=== PATIENT | female | born 1950 | race Two or more races ===

== ENCOUNTER 2016-12-20 08:24 | Inpatient (IN) | payer BC ==
[2016-12-20] VITALS (7 sets, daily range): BP systolic 120–133; BP diastolic 60–63; PULSE 86–101; RESP 18–24; TEMP 98.3
[~2016-12-20] VITALS: Ht 152.4 cm; Wt 89.0 kg
[~2016-12-20 08:24] MED LIST: ADV50050 INHALATION; ASPI81TA3 PO; CALC-143 PO; ESOM40CA PO; IPRA4AER INHALATION; MAGN400T28 PO; METF500T4 PO; MONT10TA21 PO; NIFE30TA2 PO; PRED20TA PO; THEOPHYLLINE PO; TIOT18CA INHALATION
[2016-12-20] MEDS ORDERED: IPRATROPIUM (NEB) 0.5 MG/2.5 ML AMP NEB STA (08:33)
[2016-12-20] MEDS ORDERED: METHYLPREDNISOLONE 125 MG INJ IV STA (08:33)
[2016-12-20] MEDS ORDERED: TERBUTALINE 1 MG/ML INJ SC STA (08:33)
[2016-12-20] MEDS ORDERED: ALBUTEROL 0.5% (NEB) 2.5 MG/0.5 ML AMP NEB STA (08:33)
[2016-12-20 09:03] LABS: HEMATOCRIT 40.2 % (37.0-47.0); HEMOGLOBIN 12.9 g/dl (12.0-16.0); MEAN CORPUSCULAR HEMOGLOBIN 25.5 pg (29.0-33.0); MEAN CORPUSCULAR HGB CONC 32.1 g/dl (32.0-37.0); MEAN CORPUSCULAR VOLUME 79.4 fl (82.0-101.0); MEAN PLATELET VOLUME 12.6 fl (7.4-10.4); PLATELET COUNT 117 10^3/UL (140-440); RED BLOOD COUNT 5.07 10^6/ul (4.20-5.40); RED CELL DISTRIBUTION WIDTH 14.4 % (11.5-14.5); UNCORRECTED WBC 4.1 10^3/ul (4.8-10.8); WHITE BLOOD COUNT 4.1 10^3/ul (4.8-10.8)
[2016-12-20 09:07] LABS: CONDITION 1; LH ANALYZER COMMENTS 1; SUSPECT 1
--- NOTE | 2016-12-20 09:10 | RADRPT ---
PROCEDURE: XR Chest. CLINICAL INDICATION: Possible sepsis. TECHNIQUE: Single frontal view of the chest was obtained. COMPARISON: 08/13/2016. FINDINGS: Cardiomediastinal silhouette appears normal The cardiac silhouette appears normal. There is calcification in the thoracic aorta. Pulmonary vas culature appears normal. Extensive bilateral cystic changes in the upper lung morgan consistent wit h emphysema. There is a slight increase in bronchial thickening in the lower lung morgan without a confluent airspace process. Costophrenic angles remain well defined. IMPRESSION: 1. Extensive cystic emphysematous changes in the upper lung field with an increase in apparent perib ronchial thickening particularly in the lower lung morgan. This likely reflects nonspecific inflamm ation/bronchitis. 2. No confluent airspace process identified. 3. Aortic atherosclerosis per RPTAT: [facility] Physician Jerri Date Time Electronically viewed and signed by Physician Jerri on 12/20/2016 09:10 /
[2016-12-20 09:41] LABS: ALBUMIN 3.6 g/dl (3.3-4.9)
[2016-12-20 09:41] LABS: BASOPHIL # 0.1 10^3/ul (0.0-0.1); LYMPHOCYTES # 0.7 10^3/ul (0.8-2.9); MONOCYTE # 0.5 10^3/ul (0.3-0.9)
[2016-12-20 09:44] LABS: ALBUMIN/GLOBULIN RATIO 0.97; BILIRUBIN,INDIRECT 0.6 mg/dl (0-1.1); BILIRUBIN,TOTAL 0.6 mg/dl (0.2-1.3); CREATININE 0.42 mg/dl (0.44-1.00); TOTAL PROTEIN 7.3 g/dl (6.1-8.1)
[2016-12-20 09:45] LABS: CALCIUM 9.2 mg/dl (8.4-10.2)
[2016-12-20 10:01] LABS: INR 1.12; PROTIME 14.4 Sec (12.2-14.2); PT RATIO 1.1
[2016-12-20 10:02] LABS: PARTIAL THROMBOPLASTIN TIME 31.8 Sec (25.0-35.0)
[2016-12-20] MEDS ORDERED: ONDANSETRON 4 MG INJ IV PRN ×2 (10:30→11:00)
[2016-12-20] MEDS ORDERED: ACETAMINOPHEN 325 MG TAB PO PRN ×2 (10:30→11:00)
--- NOTE | 2016-12-20 10:40 | ERA ---
ER Documentation Chief Complaint Date/Time DATE: 12/20/16 TIME: 10:33 Chief Complaint sob with moderate wheezing and access muscle use onset 2 days. got worse HPI This is a 66-year-old female who presents to the emergency room for evaluation of shortness of breath, wheezing, and difficulty breathing for the past 2 days. This patient does have a history of COPD according to family members were at bedside. She has been using an inhaler without relief of her symptoms. ROS All systems reviewed and are negative except as per history of present illness. Medications Home Meds Active Scripts Nifedipine (Procardia Xl) 30 Mg Tab.er.24, 30 MG PO BID, #60 TAB Prov:TATI SANCHEZ MD 08/30/16 Albuterol/Ipratropium* (Combivent Respimat*) 20-100 Mcg/Inh - 4 Gm Aer.w.adap, 1 PUFF INHALATION QID, #1 INHALER Prov:TATI SANCHEZ MD 08/30/16 Prednisone* (Prednisone*) 20 Mg Tab, 20 MG PO BID, #20 TAB Prov:TATI SANCHEZ MD 08/30/16 [Theophylline (Sr)] 200 MG TABSR No Conflict Check, 200 MG PO QHS, #30 Prov:TATI SANCHEZ MD 08/30/16 Aspirin (Aspirin) 81 Mg Chew, 81 MG PO DAILY, #30 TAB Prov:TATI SANCHEZ MD 08/30/16 Magnesium Oxide* (Magnesium Oxide*) 400 Mg Tablet, 400 MG PO DAILY, #30 TAB Prov:TATI SANCHEZ MD 08/30/16 Metformin* (Glucophage*) 500 Mg Tab, 1000 MG PO WITH LUNCH DINNER, #60 TAB Prov:TATI SANCHEZ MD 08/30/16 Esomeprazole Mag Trihydrate (Nexium) 40 Mg Capsule.dr, 40 MG PO DAILY, #30 CAP Prov:TATI SANCHEZ MD 08/30/16 Tiotropium Phoenix* (Spiriva*) 18 Mcg Cap.w.dev, 1 CAP INHALATION DAILY, #30 CAP Prov:TATI SANCHEZ MD 08/30/16 Salmeterol Xinaf-Fluticasone* (Advair*) 500/50 Diskus Inhaler, 1 INH INHALATION BID, #1 INHALER Prov:TATI SANCHEZ MD 08/30/16 Calcium Citrate/Vitamin D (Citracal-Vitamin D 200 MG-250) 1 Each Tablet, 1 EACH PO BID, #60 TAB Prov:TATI SANCHEZ MD 08/30/16 Montelukast Sodium* (Singulair*) 10 Mg Tablet, 10 MG PO QHS, #30 TAB Prov:TATI SANCHEZ MD 08/30/16 Allergies Allergies: Uncoded Allergies: CONTRAST, DYE (Allergy, Severe, 08/15/16) ANAESTHESIA (Adverse Reaction, Unknown, 08/12/16) PT STATES ONLY ALLERGIC TO ANAESTHESIA PMhx/Soc History of Surgery: No Anesthesia Reaction: No Hx Neurological Disorder: No Hx Respiratory Disorders: No Hx Cardiac Disorders: No Hx Psychiatric Problems: No Hx Miscellaneous Medical Probl: No Hx Alcohol Use: No Hx Substance Use: No Hx Tobacco Use: No Smoking Status: Never smoker Physical Exam Vitals Vital Signs Date Time Temp Pulse Resp B/P Pulse Ox O2 Delivery O2 Flow Rate FiO2 12/20/16 09:07 98.3 82 20 138/66 100 BIPAP 12/20/16 08:54 Nasal Cannula 12/20/16 08:35 Nasal Cannula 12/20/16 08:29 98.9 102 30 184/79 90 Physical Exam INITIAL VITAL SIGNS: Reviewed by me GENERAL: The patient is well developed, moderate respiratory distress HEENT: Dry mucous membranes, pupils equal, round, and reactive to light. EOMI. There is no scleral icterus. NECK: C-spine is soft and supple, there is no meningismus. There is no cervical lymphadenopathy. LUNGS: Diffuse wheezing and rhonchi auscultating the bilateral upper lower lobe. HEART: Tachycardic no murmurs, clicks, rubs or gallops. ABDOMEN: Accessory muscle use, soft, non-tender, non-distended. There are bowel sounds in all four quadrants. No rebound or guarding. EXTREMITIES: There is no peripheral cyanosis or edema. No focal swelling or erythema. NEUROLOGICAL: The patient moves all four extremities with 5/5 strength. Cranial nerves II - XII are intact. Normal gait. Alert and oriented SKIN: There is no apparent rash or petechiae. HEME/LYMPHATIC: There is no evidence of excessive bruising or lymphedema. PSYCHIATRIC: The patient appears moderately anxious Result Diagram: 12/20/16 0844 12/20/16 0930 Results 24 hrs Laboratory Tests Test 12/20/16 08:44 12/20/16 09:30 Band Neutrophils % 20.0% Basophils # 0.110^3/ul Basophils % 2.0% Blood Morphology Comment Differential Comment MANUAL DIFF Eosinophils # 10^3/ul Eosinophils % % Giant Platelets 1+ Hematocrit 40.2% Hemoglobin 12.9g/dl Lymphocytes # 0.710^3/ul Lymphocytes % 16.0% Mean Corpuscular Hemoglobin 25.5pg Mean Corpuscular Hemoglobin Concent 32.1g/dl Mean Corpuscular Volume 79.4fl Mean Platelet Volume 12.6fl Monocytes # 0.510^3/ul Monocytes % 13.0% Neutrophils # 2.010^3/ul Neutrophils % 49.0% Nucleated Red Blood Cells # 10^3/ul Nucleated Red Blood Cells % /100WBC Platelet Count 46864^3/UL Red Blood Count 5.0710^6/ul Red Cell Distribution Width 14.4% White Blood Count 4.110^3/ul Activated Partial Thromboplast Time 31.8Sec Alanine Aminotransferase (ALT/SGPT) 69IU/L Albumin 3.6g/dl Albumin/Globulin Ratio 0.97 Alkaline Phosphatase 110IU/L Anion Gap 14 Aspartate Amino Transf (AST/SGOT) 71IU/L Blood Urea Nitrogen 11mg/dl Calcium Level 9.2mg/dl Carbon Dioxide Level 29mmol/L Chloride Level 95mmol/L Creatinine 0.42mg/dl Direct Bilirubin 0.00mg/dl Globulin 3.70g/dl Glucose Level 180mg/dl INR International Normalized Ratio 1.12 Indirect Bilirubin 0.6mg/dl Lactic Acid Level 2.3mmol/L Potassium Level 5.0mmol/L Prothrombin Time 14.4Sec Prothrombin Time Ratio 1.1 Sodium Level 133mmol/L Total Bilirubin 0.6mg/dl Total Protein 7.3g/dl Troponin I < 0.012ng/ml Current Medications Medications (Trade) Dose Ordered Sig/Rola Route PRN Reason Start Time Stop Time Status Last Admin Dose Admin Albuterol (Proventil 0.5% (Neb)) 10 mg ONCE STAT NEB 12/20/16 08:33 12/20/16 08:34 DC 12/20/16 08:49 Ipratropium Phoenix (Atrovent 0.02% (Neb)) 1.5 mg ONCE STAT NEB 12/20/16 08:33 12/20/16 08:34 DC Methylprednisolone Sodium Succinate (Solu-Medrol) 125 mg ONCE STAT IV 12/20/16 08:33 12/20/16 08:34 DC 12/20/16 09:03 Terbutaline Sulfate (Brethine) 0.25 mg ONCE STAT SC 12/20/16 08:33 12/20/16 08:34 DC Ondansetron HCl (Zofran Inj) 4 mg ER BRIDGE PRN IV NAUSEA AND/OR VOMITING 12/20/16 10:30 12/21/16 10:29 Acetaminophen (Tylenol Tab) 650 mg ER BRIDGE PRN PO MILD PAIN/FEVER 12/20/16 10:30 12/21/16 10:29 Procedures/MDM EKG: Rate/Rhythm: [Normal Sinus Rhythm] QRS, ST, T-waves: [No changes consistent w/ acute ischemia] Impression: [No evidence of ischemia or arrhythmia] EKG: #2 Rate/Rhythm: [Normal Sinus Rhythm] QRS, ST, T-waves: [No changes consistent w/ acute ischemia] Impression: [No evidence of ischemia or arrhythmia] Chest X-ray 1V Interpreted by me: Soft Tissue: Peribronchial thickening , cystic changes in the upper lobe Bones: No acute abnormalities Mediastinum/Cardiac Silhouette/Lungs: [No acute abnormalities] This 66-year-old female presents to the emergency room for evaluation of shortness of breath. When I evaluated this patient she was tachypnea, tachycardic, and extremely anxious. Her pulse ox was 77% on room air. The decision was made to place this patient on a BiPAP immediately. She was placed on a BiPAP, was given an in-line treatment of albuterol, Atrovent, Solu-Medrol, and subcutaneous terbutaline. This patient tolerated her treatments well and she is tolerating the BiPAP well also. Her pulse ox is now 100%. She is refusing ABG at this time. This patient will be placed in for admission for acute respiratory failure, and hypoxic respiratory distress. This patient did have emphysematous and inflammatory changes on her chest x-ray. I do not feel that she has pneumonia at this time and I feel that her symptoms are secondary to her underlying COPD. This patient will be placed in the telemetry floor under the care of Dr. aj. Critical Care: Excluding all billable procedures Time: 33 minutes Treatments/Evaluations: Emergent and rapid respiratory assessment and management with continuous monitoring. Advanced airway equipment at the ready, while the patient's respiratory symptoms were stabilized. Departure Diagnosis: Primary Impression: Acute respiratory failure Additional Impressions: Hypoxemia Hyponatremia Condition: Stable RIGOBERTO GAMA DO Dec 20, 2016 10:40
[2016-12-20] MEDS ORDERED: BISACODYL 10 MG SUPP PR PRN (11:00)
[2016-12-20] MEDS ORDERED: ACETAMINOPHEN 650 MG SUPP PR PRN (11:00)
[2016-12-20] MEDS ORDERED: NACL 0.9% 3 ML SYG IV SCH (11:00)
[2016-12-20] MEDS ORDERED: HYDROCODONE/APAP (5/325) TAB PO PRN ×2 (11:00)
[2016-12-20] MEDS ORDERED: DOCUSATE SODIUM 100 MG CAP PO PRN (11:00)
[2016-12-20] MEDS ORDERED: morphine 2 MG INJ IV PRN (11:00)
[2016-12-20] MEDS: SOD CHLORIDE 0.9% 1,000 ML IV SCH (11:30)
[2016-12-20 11:32] LABS: ADD UMIC NO; URINE BILIRUBIN (Dip) NEGATIVE (NEGATIVE); URINE BLOOD (Dip) NEGATIVE (NEGATIVE); URINE COLOR LT. YELLOW (YELLOW); URINE GLUCOSE (Dip) NEGATIVE (NEGATIVE); URINE KETONES (Dip) NEGATIVE (NEGATIVE); URINE LEUKOCYTE ESTERASE (Dip) NEGATIVE (NEGATIVE); URINE NITRITE (Dip) NEGATIVE (NEGATIVE); URINE TOTAL PROTEIN (Dip) NEGATIVE (NEGATIVE); URINE UROBILINOGEN (Dip) 2.0 E.U./dL (0.1-1.0)
[2016-12-20] MEDS ORDERED: GLUCOSE GEL 15 GRAM TUBE BUCCAL PRN (12:00)
[2016-12-20] MEDS ORDERED: GLUCAGON 1 MG INJ IM PRN (12:00)
[2016-12-20] MEDS ORDERED: DEXTROSE 50% 50 ML SYRINGE IV PRN ×2 (12:00)
[2016-12-20] MEDS ORDERED: GLUCOSE GEL 15 GRAM TUBE PO PRN ×2 (12:00)
[2016-12-20] MEDS: ALBUTEROL/IPRATROPIUM (NEB) 3 ML AMP HHN SCH ×3 (12:39→20:46)
[2016-12-20] MEDS: METHYLPREDNISOLONE 125 MG INJ IV SCH ×2 (12:57→21:35)
[2016-12-20] MEDS: metFORMIN 500 MG TAB PO SCH ×2 (13:00→18:22)
[2016-12-20] MEDS: LEVOFLOXACIN 500MG/D5W (PMX) 100 ML IVPB SCH (16:28)
--- NOTE | 2016-12-20 16:53 | HP ---
DATE OF ADMISSION: 12/20/2016 CHIEF COMPLAINT: Shortness of breath and hemoptysis. HISTORY OF PRESENT ILLNESS: This is a 66-year-old female with past medical history of COPD, GERD, иван iatyree, who came to [facility] due to reports of increased shortness of breath fo r a week duration with associated cough and hemoptysis for 3 days. Of note, patient was recently ad mitted to [facility] in August of 2016 with similar presentation. The patient did come to [facility] due to the aforementioned issues and she did have chest x-r ay done on 12/20/2016 that did show extensive cystic emphysematous changes in the upper lung field w ith increase in peribronchial thickening, particularly in the lower lung morgan reflective of inflam mation/bronchitis. There were no confluent airspace processes identified. On labs, she did have initial lactic acid of 2.3, which did downward trend to 1.1. She was slightly hyponatremic with sodium of 133. She remained afebrile. She denied any recent weight loss but she did report having some subjective night sweats. We will evaluate her for the aforementioned issues . MEDICAL AND SURGICAL HISTORY: 1. Diabetes. 2. GERD. 3. Reported history of chronic obstructive pulmonary disease. 4. History of thrombocytopenia. 5. Congestive heart failure with grade I diastolic dysfunction. 6. History of hepatitis C. SOCIAL HISTORY: Patient denies any cigarette smoking, alcohol consumption or illicit drug use. FAMILY HISTORY: Noncontributory. ALLERGIES: 1. ANESTHESIA. 2. CONTRAST DYE. HOME MEDICATIONS: 1. Combivent Respimat 1 puff q.i.d. 2. Spiriva 1 capsule inhaled every day. 3. Nifedipine 30 mg p.o. b.i.d. 4. Aspirin 81 mg p.o. daily. 5. Calcium citrate and vitamin D 1 tab p.o. b.i.d. 6. Singulair 10 mg p.o. at bedtime. 7. Advair 500/50 one puff b.i.d. 8. Nexium 40 mg p.o. daily. 9. Magnesium oxide 400 mg p.o. daily. 10. Metformin 1000 mg p.o. b.i.d. 11. Prednisone 20 mg p.o. b.i.d. 12. Theophylline 200 mg p.o. at bedtime. REVIEW OF SYSTEMS: A 12-point review of systems obtained and entirely negative except that mentione d in the history of present illness. PHYSICAL EXAMINATION: VITAL SIGNS: Temperature is 97.9, pulse is 74, respiratory rate 18, blood pressure 120/60 and pulse ox is 99% on 3 liters nasal cannula. GENERAL: This is a 66-year-old female in mild distress secondary to shortness of breath. EYES: Pupils are equal, round and reactive to light. Anicteric sclerae. NECK: Supple, nontender, no JVD. CARDIOVASCULAR: S1, S2 auscultated, regular rate. PULMONARY: Noted wheezing auscultated bilateral lung morgan. ABDOMEN: Soft, nontender, nondistended. EXTREMITIES: No pitting edema bilateral lower extremities. SKIN: Warm, dry, and intact. NEUROLOGIC: Alert, oriented x3. LABORATORY DATA: WBC 12.1, hemoglobin is 12.9, hematocrit is 40.2 and platelets are 117. Sodium is 133, potassium 5, BUN is 11, creatinine 0.42. IMAGING: Chest x-ray done on 12/20/2014 did show extensive cystic emphysematous changes in the uppe r lung field with increase in apparent peribronchial thickening, particularly in the lower lung fiel ds suspect for nonspecific inflammation/bronchitis. IMPRESSION AND PLAN 1. Chronic obstructive pulmonary disease with exacerbation. Patient noted with active bronchospasm . Continue on steroid treatment. Will provide her with bronchodilators around the clock. We will titrate down O2 as tolerated. Patient Admitting Clerk to follow. 2. Hemoptysis. Patient noted during physical examination and evaluation to be coughing up a red-ti nged sputum. We will get a apartment maintenance to follow. Will follow up on CT scan of the chest. Follow up on AFB. 3. History of chronic obstructive pulmonary disease, continued on bronchodilators. 4. History of diabetes. We will continue the patient on her metformin. We will follow up on A1c. Will start on insulin regimen pending clinical course. 5. Deep venous thrombosis prophylaxis: SCDs. 6. Gastroesophageal reflux disease prophylaxis: H2 blockers. ADMISSION PROCESS TIME: 40 minutes. Discussed plan of care with Dr. Nelson. Dictated By: JASBIR BECERRA/ANGE Conf#: [id number] [facility]#: [id number]
[2016-12-20] MEDS: NIFEdipine (XL) 30 MG TAB PO SCH ×2 (21:00→21:22)
[2016-12-20] MEDS: SALMETEROL/FLUTICASONE 500/50 INHA INH SCH (21:18)
[2016-12-20] MEDS: MONTELUKAST 10 MG TAB PO SCH (21:22)
[2016-12-21] VITALS (11 sets, daily range): BP systolic 120–142; BP diastolic 58–65; PULSE 88–105; RESP 18–21
[2016-12-21] MEDS: SOD CHLORIDE 0.9% 1,000 ML IV SCH ×3 (01:00→16:12)
[2016-12-21] MEDS: ALBUTEROL/IPRATROPIUM (NEB) 3 ML AMP HHN SCH ×6 (01:51→20:38)
[2016-12-21] MEDS: PANTOPRAZOLE (EC) 40 MG TAB PO SCH (06:14)
[2016-12-21 07:37] LABS: ALBUMIN 3.2 g/dl (3.3-4.9); POTASSIUM 5.6 mmol/L (3.5-5.1)
[2016-12-21 07:39] LABS: CREATININE 0.46 mg/dl (0.44-1.00)
[2016-12-21 07:40] LABS: ALBUMIN/GLOBULIN RATIO 0.94; BILIRUBIN,INDIRECT 0.2 mg/dl (0-1.1); BILIRUBIN,TOTAL 0.2 mg/dl (0.2-1.3); CALCIUM 9.5 mg/dl (8.4-10.2); TOTAL PROTEIN 6.6 g/dl (6.1-8.1)
[2016-12-21 07:41] LABS: CHOL/HDL RATIO 2.6 RATIO; MAGNESIUM 1.5 mg/dl (1.7-2.5)
[2016-12-21 07:44] LABS: T3 UPTAKE 24.7 % (23.5-40.5)
[2016-12-21 07:57] LABS: HEMATOCRIT 36.8 % (37.0-47.0); HEMOGLOBIN 11.9 g/dl (12.0-16.0); LYMPHOCYTES # 0.4 10^3/ul (0.8-2.9); LYMPHOCYTES % 10.5 % (15.0-51.0); MEAN CORPUSCULAR HEMOGLOBIN 25.5 pg (29.0-33.0); MEAN CORPUSCULAR HGB CONC 32.4 g/dl (32.0-37.0); MEAN CORPUSCULAR VOLUME 78.9 fl (82.0-101.0); MEAN PLATELET VOLUME 12.8 fl (7.4-10.4); MONOCYTE # 0.2 10^3/ul (0.3-0.9); MONOCYTES % 6.7 % (0.0-11.0); NEUTROPHILS % 82.8 % (39.0-77.0); PLATELET COUNT 103 10^3/UL (140-440); RED BLOOD COUNT 4.66 10^6/ul (4.20-5.40); UNCORRECTED WBC 3.6 10^3/ul (4.8-10.8); WHITE BLOOD COUNT 3.6 10^3/ul (4.8-10.8)
[2016-12-21 07:59] LABS: THYROID STIMULATING HORMONE 0.778 MIU/L (0.465-4.680)
[2016-12-21 08:02] LABS: CONDITION 1; LH ANALYZER COMMENTS 1; SUSPECT 1
[2016-12-21] MEDS: SALMETEROL/FLUTICASONE 500/50 INHA INH SCH ×2 (08:35→21:03)
[2016-12-21] MEDS: NIFEdipine (XL) 30 MG TAB PO SCH ×2 (08:35→21:08)
[2016-12-21] MEDS: METHYLPREDNISOLONE 125 MG INJ IV SCH ×3 (08:35→21:05)
[2016-12-21] MEDS: MAGNESIUM OXIDE 400 MG TAB PO SCH (08:35)
[2016-12-21] MEDS: ASPIRIN 81 MG TAB PO SCH (08:35)
[2016-12-21] MEDS ORDERED: INFLUENZA VIRUS VACCINE 0.5 ML SYG IM* ONE (09:00)
[2016-12-21] MEDS ORDERED: GLUCOSE GEL 15 GRAM TUBE BUCCAL PRN (09:30)
[2016-12-21] MEDS ORDERED: DEXTROSE 50% 50 ML SYRINGE IV PRN ×2 (09:30)
[2016-12-21] MEDS ORDERED: GLUCAGON 1 MG INJ IM PRN (09:30)
[2016-12-21] MEDS ORDERED: GLUCOSE GEL 15 GRAM TUBE PO PRN ×2 (09:30)
[2016-12-21] MEDS ORDERED: MAGNESIUM SULFATE 2 GM/50 ML 50 ML IVPB ONE (10:00)
[2016-12-21] MEDS ORDERED: NA POLYST SULFON 15 GM/60 ML BTL PR ONE (10:00)
[2016-12-21] MEDS: INSULIN GLARGINE [LANtus] 3 ML PEN SC SCH (10:00)
[2016-12-21] MEDS: metFORMIN 500 MG TAB PO SCH ×2 (11:43→17:12)
[2016-12-21] MEDS: INSULIN ASPART [NOVOLOG] 3 ML PEN SC SCH ×3 (12:28→21:34)
--- NOTE | 2016-12-21 13:30 | RADRPT ---
PROCEDURE: CT Chest without contrast. CLINICAL INDICATION: hemoptysis, sob TECHNIQUE: CT scan of the chest without contrast was performed on a multidetector high-resolution CT scanner. Coronal and sagittal reformatted images were obtained from the axial source images. The total exam CTDI equals 13 mGy and the total exam DLP equals 447 mGy-cm. COMPARISON: CT chest August 16, 2016 FINDINGS: Noted is complete replacement of both upper lobes and the right middle lobe by bronchiectasis. Ther e are fluid levels in scattered dilated bronchi. There is minimal bronchiectasis in the anterior ba yeyo segment of the left lower lobe. Noted is mild nodular infiltrate in the posterior basal segment of the right lower lobe. No alveolar infiltrate or mass is seen. There is no pleural or pericardi al effusion. No pneumothorax is present. There are sub centimeter middle mediastinal nodes. No hi lar or mediastinal adenopathy or masses present. Calcifications are present in the wall of the aort a. There is no aneurysm. No pneumothorax is present. There is a nodular contour to the liver consistent with cirrhosis. No mass or ductal dilatation is present. There is splenic enlargement. No adrenal mass is seen. The osseous structures are intact. IMPRESSION: Complete replacement right and left upper lobe and right middle lobe by bronchiectasis. No masses d etected. No change. Minimal nodular infiltrate right lower lobe. Cirrhosis. Splenomegaly. Vascular calcifications. .Giuseppe Bueno MD, MD Date Time Electronically viewed and signed by .Giuseppe Bueno MD, on 12/21/2016 13:29 .A/
--- NOTE | 2016-12-21 14:10 | PN ---
Date/Time of Note Date/Time of Note DATE: 12/21/16 TIME: 14:05 Assessment/Plan VTE Prophylaxis VTE Prophylaxis Intervention: SCD's Lines/Catheters IV [facility]from [facility] Peripheral IV Urinary Cath still in place: No Assessment/Plan Chief Complaint/Hosp Course Assessment and plan 1. Chronic obstructive pulmonary disease with exacerbation. Patient noted with active bronchospasm. Continue on steroid treatment. Will provide her with bronchodilators around the clock. We will titrate down O2 as tolerated. Of note patient did have CT scan of the chest that did show: Complete replacement right and left upper lobe and right middle lobe by bronchiectasis Await pulmonology input. 2. Hemoptysis. Patient noted during physical examination and evaluation to be coughing up a red-tinged sputum. Patient also does report subjective night sweats and fever. Inspector [place] to follow. Follow up on AFB. 3. History of chronic obstructive pulmonary disease, continued on bronchodilators. 4. History of diabetes. A1c at 6.4. Continue on insulin regimen 5. Deep venous thrombosis prophylaxis: SCDs. 6. Gastroesophageal reflux disease prophylaxis: H2 blockers. Disposition and plan: Continue breathing treatments. Await pulmonary input. Continue inpatient monitoring await clinical improvement of respiratory status Discussed plan of care with Dr. Nelson Problems: Subjective 24 Hr Interval Summary Free Text/Dictation resting at this time. does report better breathing today. Still has some reported hemoptysis Exam/Review of Systems Vital Signs Vitals Vital Signs Date Time Temp Pulse Resp B/P Pulse Ox O2 Delivery O2 Flow Rate FiO2 12/21/16 12:36 92 12/21/16 11:32 97.8 18 125/58 97 12/21/16 09:00 Venti Mask 15.0 50 Intake and Output 12/20/16 12/20/16 12/21/16 15:00 23:00 07:00 Intake Total 100 ml 1600 ml Balance 100 ml 1600 ml Exam General: No acute signs or symptoms of distress Eyes: pupils equal round, Anicteric sclera Neck: Supple nontender, no JVD Cardiac: S1, S2 auscultated, regular rhythm and rate Pulmonary: Coarse lung sounds auscultated bilaterally with also wheezing GI: Abdomen soft nontender nondistended, bowel sounds active Extremities: No edema bilateral lower extremities Skin: Clean dry and intact Neurologic: Alert to person place and time and situation Results Result Diagram: 12/21/16 0555 12/21/16 0555 Results 24 hrs Laboratory Tests Test 12/20/16 21:38 12/21/16 05:55 12/21/16 11:42 Bedside Glucose 227 H 219 Alanine Aminotransferase (ALT/SGPT) 61 Albumin 3.2 L Albumin/Globulin Ratio 0.94 Alkaline Phosphatase 90 Anion Gap 17 H Aspartate Amino Transf (AST/SGOT) 51 H Basophils # 0.0 Basophils % 0.0 Blood Morphology Comment Blood Urea Nitrogen 17 Calcium Level 9.5 Carbon Dioxide Level 26 Chloride Level 97 Cholesterol Level 115 Cholesterol/HDL Ratio 2.6 Creatinine 0.46 Direct Bilirubin 0.00 Eosinophils # 0.0 Eosinophils % 0.0 Free Thyroxine Index 3.21 Globulin 3.40 H Glucose Level 191 HDL Cholesterol 43 Hematocrit 36.8 L Hemoglobin 11.9 L Hemoglobin A1c 6.4 H Indirect Bilirubin 0.2 LDL Cholesterol, Calculated 62 Lymphocytes # 0.4 L Lymphocytes % 10.5 L Magnesium Level 1.5 L Mean Corpuscular Hemoglobin 25.5 L Mean Corpuscular Hemoglobin Concent 32.4 Mean Corpuscular Volume 78.9 L Mean Platelet Volume 12.8 H Monocytes # 0.2 L Monocytes % 6.7 Neutrophils # 3.0 Neutrophils % 82.8 H Nucleated Red Blood Cells # 0.0 Nucleated Red Blood Cells % 0.0 Platelet Count 103 L Potassium Level 5.6 H Red Blood Count 4.66 Red Cell Distribution Width 14.0 Sodium Level 134 L Thyroid Stimulating Hormone (TSH) 0.778 Thyroxine (T4) 13.0 H Total Bilirubin 0.2 Total Protein 6.6 Triglycerides Level 52 Triiodothyronine (T3) Uptake 24.7 White Blood Count 3.6 L Medications Medications Current Medications Albuterol/ Ipratropium (Duoneb) 3 ml Q4 HHN Last administered on 12/21/16 13: 51; Admin Dose 3 ML; Start 12/20/16 at 13:00 Methylprednisolone Sodium Succinate (Solu-Medrol) 60 mg TID IV Last administered on 12/21/16 08:35; Admin Dose 60 MG; Start 12/20/16 at 13:00 Aspirin (Aspirin) 81 mg DAILY PO Last administered on 12/21/16 08:35; Admin Dose 81 MG; Start 12/21/16 at 09:00 Magnesium Oxide (Mag-Ox 400) 400 mg DAILY PO Last administered on 12/21/16 08: 35; Admin Dose 400 MG; Start 12/21/16 at 09:00 Montelukast Sodium (Singulair) 10 mg QHS PO Last administered on 12/20/16 21: 22; Admin Dose 10 MG; Start 12/20/16 at 21:00 Nifedipine (Procardia Xl) 30 mg BID PO Last administered on 12/21/16 08:35; Admin Dose 30 MG; Start 12/20/16 at 21:00 Salmeterol Xinafoate/ Fluticasone (Advair 500/50 Diskus) 1 inh BID INH Last administered on 12/21/16 08:35; Admin Dose 1 INH; Start 12/20/16 at 21:00 Pantoprazole (Protonix Tab) 40 mg DAILY@06 PO Last administered on 12/21/16 06 :14; Admin Dose 40 MG; Start 12/21/16 at 06:00 Ondansetron HCl (Zofran Inj) 4 mg Q6H PRN IV NAUSEA AND/OR VOMITING; Start at 11:00 Acetaminophen (Tylenol Tab) 650 mg Q6H PRN PO PAIN LEVEL 1-3 OR FEVER; Start at 11:00 Acetaminophen (Tylenol Supp) 650 mg Q6H PRN AK PAIN LEVEL 1-3 OR FEVER; Start 12/20/16 at 11:00 Acetaminophen/ Hydrocodone Bitart (Olema (5/325)) 1 tab Q6H PRN PO MODERATE PAIN LEVEL 4-6; Start 12/20/16 at 11:00 Acetaminophen/ Hydrocodone Bitart (Olema (5/325)) 2 tab Q6H PRN PO SEVERE PAIN LEVEL 7-10; Start 12/20/16 at 11:00 Morphine Sulfate (morphine) 2 mg Q4H PRN IV SEVERE PAIN LEVEL 7-10; Start 12/20 at 11:00 Docusate Sodium (Colace) 100 mg Q12H PRN PO CONSTIPATION; Start 12/20/16 at 11: 00 Magnesium Hydroxide (Milk Of Mag) 30 ml DAILY PRN PO CONSTIPATION; Start at 11:00 Bisacodyl 10 mg 10 mg DAILY PRN [place] CONSTIPATION; Start 12/20/16 at 11:00 Sodium Chloride (NS) 1,000 ml @ 75 mls/hr [id number] IV Last administered on 12/21t 01:00; Admin Dose 75 MLS/HR; Start 12/20/16 at 11:00 Miscellaneous Information 1 ea NOTE XX ; Start 12/20/16 at 12:00 Glucose (Glutose) 15 gm Q15M PRN PO DECREASED GLUCOSE; Start 12/20/16 at 12:00 Glucose (Glutose) 22.5 gm Q15M PRN PO DECREASED GLUCOSE; Start 12/20/16 at 12: 00 Dextrose (D50w Syringe) 25 ml Q15M PRN IV DECREASED GLUCOSE; Start 12/20/16 at 12:00 Dextrose (D50w Syringe) 50 ml Q15M PRN IV DECREASED GLUCOSE; Start 12/20/16 at 12:00 Glucagon (Glucagen) 1 mg Q15M PRN IM DECREASED GLUCOSE; Start 12/20/16 at 12:00 Glucose 15 gm 15 gm Q15M PRN BUCCAL DECREASED GLUCOSE; Start 12/20/16 at 12:00 Levofloxacin/ Dextrose (Levaquin 500mg/ D5W 100 ml (Pmx)) 100 ml @ 100 mls/hr Q24H IVPB Last administered on 12/20/16t 16:28; Admin Dose 100 MLS/HR; Start at 16:30 Insulin Glargine (Lantus) 10 unit QAM SC Last administered on 12/21/16t 10:00; Admin Dose 10 UNIT; Start 12/21/16 at 10:00 Diagnostic Test (Pha) (Accucheck) 1 ea 02 XX ; Start 12/22/16 at 02:00 Miscellaneous Information 1 ea NOTE XX ; Start 12/21/16 at 09:30 Glucose (Glutose) 15 gm Q15M PRN PO DECREASED GLUCOSE; Start 12/21/16 at 09:30 Glucose (Glutose) 22.5 gm Q15M PRN PO DECREASED GLUCOSE; Start 12/21/16 at 09: 30 Dextrose (D50w Syringe) 25 ml Q15M PRN IV DECREASED GLUCOSE; Start 12/21/16 at 09:30 Dextrose (D50w Syringe) 50 ml Q15M PRN IV DECREASED GLUCOSE; Start 12/21/16 at 09:30 Glucagon (Glucagen) 1 mg Q15M PRN IM DECREASED GLUCOSE; Start 12/21/16 at 09:30 Glucose (Glutose) 15 gm Q15M PRN BUCCAL DECREASED GLUCOSE; Start 12/21/16 at 09 :30 JASBIR LOZADA Dec 21, 2016 14:10
[2016-12-21] MEDS: LEVOFLOXACIN 500MG/D5W (PMX) 100 ML IVPB SCH (16:16)
--- NOTE | 2016-12-21 16:32 | CONS ---
DATE OF ADMISSION: 12/20/2016 DATE OF CONSULTATION: 12/21/2016 TYPE OF CONSULTATION: Pulmonary. REFERRING PHYSICIAN: Simon Caraballo NP and Justin Edwards MD REASON FOR CONSULTATION: Shortness of breath. HISTORY OF PRESENT ILLNESS: This is a 66-year-old woman with a history of COPD, who presented to ER with complaints of increasing shortness of breath. It appears that patient had developed cough abo ut a week ago which was associated with some blood-tinged sputum. Then, she became more short of br eath and subsequently came to the ER. Chest x-ray showed extensive cystic emphysematous changes in the upper lung field area. Cultures were obtained. The patient was started on broad-spectrum antib iotics. She still has mild blood-tinged sputum. However, does not appear in any respiratory distre ss. REVIEW OF SYSTEMS: Due to language barrier, not much history could be obtained from the patient. PAST MEDICAL HISTORY: History of diabetes, COPD, GERD, thrombocytopenia, congestive heart failure, and hepatitis C. ALLERGIES: CONTRAST DYE AND SOME ANESTHESIA MEDICATION. SOCIAL HABITS: Denies smoking or alcohol abuse. FAMILY HISTORY: Noncontributory. PHYSICAL EXAMINATION: VITAL SIGNS: Blood pressure 125/58, pulse 63, respirations 18, temperature 97.8. HEENT: Pupils are equal and reactive to light. NECK: Supple, no JVD noted, no cervical lymphadenopathy noted, no carotid bruits heard. LUNGS: Diminished breath sounds bilaterally with few scattered rhonchi. CARDIOVASCULAR: S1, S2 normal. ABDOMEN: Soft, nontender. No organomegaly or masses noted. EXTREMITIES: No clubbing, cyanosis, or edema noted. NEUROLOGICAL: Awake, alert and no focal deficit. LABORATORY DATA: Sodium 134, potassium 5.6, chloride 97, CO2 of 26, BUN 17, creatinine 0.46, glucos e 191. WBC 3.6, hemoglobin 11.9, hematocrit 36.8, platelets 103. Urine negative. IMAGING: Chest x-ray shows emphysematous changes. IMPRESSION: A 66-year-old female with: 1. Acute respiratory failure, hypoxemic. 2. Chronic obstructive pulmonary disease exacerbation. 3. Acute bronchitis. 4. Hemoptysis, likely related to acute bronchitis. 5. History of hepatitis C. RECOMMENDATIONS: 1. Steroids. 2. Check cultures. 3. Antibiotics. 4. Follow up chest x-ray. 5. Oxygen. 6. GI and DVT prophylaxis. Dictated By: LOWELL FERNÁNDEZ MD, MA/ANGE Conf#: [id number] DID#: [id number]
[2016-12-21] MEDS: MONTELUKAST 10 MG TAB PO SCH (21:08)
[2016-12-22] VITALS (13 sets, daily range): BP systolic 114–138; BP diastolic 57–63; PULSE 93–110; RESP 17–20
[2016-12-22] MEDS: ALBUTEROL/IPRATROPIUM (NEB) 3 ML AMP HHN SCH ×6 (00:34→20:33)
[2016-12-22] MEDS: ACCUCHECK XX SCH (01:39)
[2016-12-22] MEDS: PANTOPRAZOLE (EC) 40 MG TAB PO SCH (06:51)
[2016-12-22] MEDS: SOD CHLORIDE 0.9% 1,000 ML IV SCH (07:46)
[2016-12-22] MEDS: INSULIN ASPART [NOVOLOG] 3 ML PEN SC SCH ×4 (07:53→21:00)
[2016-12-22] MEDS: MAGNESIUM OXIDE 400 MG TAB PO SCH (08:53)
[2016-12-22] MEDS: ASPIRIN 81 MG TAB PO SCH (08:53)
[2016-12-22] MEDS: SALMETEROL/FLUTICASONE 500/50 INHA INH SCH ×2 (08:53→21:43)
[2016-12-22] MEDS: METHYLPREDNISOLONE 125 MG INJ IV SCH ×3 (08:53→21:42)
[2016-12-22] MEDS: NIFEdipine (XL) 30 MG TAB PO SCH ×2 (08:54→21:43)
[2016-12-22] MEDS: INSULIN GLARGINE [LANtus] 3 ML PEN SC SCH (09:04)
[2016-12-22 09:39] LABS: HEMATOCRIT 35.6 % (37.0-47.0); HEMOGLOBIN 11.5 g/dl (12.0-16.0); LYMPHOCYTES # 0.5 10^3/ul (0.8-2.9); MEAN CORPUSCULAR HEMOGLOBIN 25.4 pg (29.0-33.0); MEAN CORPUSCULAR HGB CONC 32.4 g/dl (32.0-37.0); MEAN CORPUSCULAR VOLUME 78.4 fl (82.0-101.0); MEAN PLATELET VOLUME 11.6 fl (7.4-10.4); MONOCYTE # 0.3 10^3/ul (0.3-0.9); MONOCYTES % 4.6 % (0.0-11.0); NEUTROPHIL # 5.1 10^3/ul (1.6-7.5); NEUTROPHILS % 86.4 % (39.0-77.0); PLATELET COUNT 113 10^3/UL (140-440); RED BLOOD COUNT 4.54 10^6/ul (4.20-5.40); RED CELL DISTRIBUTION WIDTH 14.4 % (11.5-14.5)
[2016-12-22 09:42] LABS: CONDITION 1; LH ANALYZER COMMENTS 1; SUSPECT 1
[2016-12-22 09:51] LABS: POTASSIUM 4.7 mmol/L (3.5-5.1)
[2016-12-22 09:53] LABS: CREATININE 0.54 mg/dl (0.44-1.00)
[2016-12-22 09:54] LABS: CALCIUM 9.4 mg/dl (8.4-10.2)
--- NOTE | 2016-12-22 10:51 | RADRPT ---
PROCEDURE: XR Chest. CLINICAL INDICATION: Shortness of breath. TECHNIQUE: Single frontal view. COMPARISON: 12/20/2016. FINDINGS: There is extensive bronchiectasis bilaterally in the upper and midlung zones. The lungs are otherwi se clear. The heart size is normal. There is calcification in the aorta consistent with atherosclerosis. There is no pleural effusion. There is no pneumothorax. IMPRESSION: 1. No change from 12/20/2016. RPTAT: QQ .Jm Sen MD, Date Time Electronically viewed and signed by .Jm Sen MD, MD on 12/22/2016 10:51 .R/
[2016-12-22] MEDS: metFORMIN 500 MG TAB PO SCH ×2 (11:22→17:31)
--- NOTE | 2016-12-22 12:39 | PN ---
Date/Time of Note Date/Time of Note DATE: 12/22/16 TIME: 12:35 Assessment/Plan VTE Prophylaxis VTE Prophylaxis Intervention: SCD's Lines/Catheters IV [facility]from [facility] Peripheral IV Urinary Cath still in place: No Assessment/Plan Chief Complaint/Hosp Course Assessment and plan 1. Chronic obstructive pulmonary disease with exacerbation. Patient noted with active bronchospasm. Continue on steroid treatment. Will provide her with bronchodilators around the clock. We will titrate down O2 as tolerated. Of note patient did have CT scan of the chest that did show: Complete replacement right and left upper lobe and right middle lobe by bronchiectasis Photographer Scientific following. Continue with recommendations 2. Hemoptysis. Improving at present. Continue pulmonary Rcs 3. History of chronic obstructive pulmonary disease, continued on bronchodilators. 4. History of diabetes. A1c at 6.4. Continue on insulin regimen 5. Deep venous thrombosis prophylaxis: SCDs. 6. Gastroesophageal reflux disease prophylaxis: H2 blockers. Disposition and plan: Still noted with some wheezing and shortness of breath. Continue with icing machine operator recommendations. Continue with breathing treatments. Discharge when medically stable and cleared by consultants Discussed plan of care with Dr. Nelson Problems: Subjective 24 Hr Interval Summary Free Text/Dictation Resting at this time. Does report little better breathing at this time Exam/Review of Systems Vital Signs Vitals Vital Signs Date Time Temp Pulse Resp B/P Pulse Ox O2 Delivery O2 Flow Rate FiO2 12/22/16 12:10 104 12/22/16 11:05 98.5 18 132/63 98 12/22/16 08:23 4.0 12/22/16 08:23 Nasal Cannula 12/21/16 13:52 40 Intake and Output 12/21/16 12/21/16 12/22/16 15:00 23:00 07:00 Intake Total 820 ml Output Total 1600 ml Balance -780 ml Exam General: No acute signs or symptoms of distress Eyes: pupils equal round, Anicteric sclera Neck: Supple nontender, no JVD Cardiac: S1, S2 auscultated, regular rhythm and rate Pulmonary: Coarse lung sounds auscultated bilaterally with also wheezing GI: Abdomen soft nontender nondistended, bowel sounds active Extremities: No edema bilateral lower extremities Skin: Clean dry and intact Neurologic: Alert to person place and time and situation Results Result Diagram: 12/22/1655 12/22/16854 Results 24 hrs Laboratory Tests Test 12/21/16 17:11 12/21/16 21:16 12/22/16 01:33 12/22/16 07:43 Bedside Glucose 224 H 244 H 167 198 Test 12/22/16 08:55 12/22/16 11:23 Anion Gap 13 Basophils # 0.0 Basophils % 0.0 Blood Morphology Comment Blood Urea Nitrogen 23 H Calcium Level 9.4 Carbon Dioxide Level 28 Chloride Level 100 Creatinine 0.54 Eosinophils # 0.0 Eosinophils % 0.0 Glucose Level 211 Hematocrit 35.6 L Hemoglobin 11.5 L Lymphocytes # 0.5 L Lymphocytes % 9.0 L Mean Corpuscular Hemoglobin 25.4 L Mean Corpuscular Hemoglobin Concent 32.4 Mean Corpuscular Volume 78.4 L Mean Platelet Volume 11.6 H Monocytes # 0.3 Monocytes % 4.6 Neutrophils # 5.1 Neutrophils % 86.4 H Nucleated Red Blood Cells # 0.0 Nucleated Red Blood Cells % 0.0 Platelet Count 113 L Potassium Level 4.7 Red Blood Count 4.54 Red Cell Distribution Width 14.4 Sodium Level 136 White Blood Count 6.0 # Bedside Glucose 228 H Medications Medications Current Medications Albuterol/ Ipratropium (Duoneb) 3 ml Q4 HHN Last administered on 12/22/16 08: 22; Admin Dose 3 ML; Start 12/20/16 at 13:00 Methylprednisolone Sodium Succinate (Solu-Medrol) 60 mg TID IV Last administered on 12/22/16 08:53; Admin Dose 60 MG; Start 12/20/16 at 13:00 Aspirin (Aspirin) 81 mg DAILY PO Last administered on 12/22/16 08:53; Admin Dose 81 MG; Start 12/21/16 at 09:00 Magnesium Oxide (Mag-Ox 400) 400 mg DAILY PO Last administered on 12/22/16 08: 53; Admin Dose 400 MG; Start 12/21/16 at 09:00 Montelukast Sodium (Singulair) 10 mg QHS PO Last administered on 12/21/16 21: 08; Admin Dose 10 MG; Start 12/20/16 at 21:00 Nifedipine (Procardia Xl) 30 mg BID PO Last administered on 12/22/16 08:54; Admin Dose 30 MG; Start 12/20/16 at 21:00 Salmeterol Xinafoate/ Fluticasone (Advair 500/50 Diskus) 1 inh BID INH Last administered on 12/22/16 08:53; Admin Dose 1 INH; Start 12/20/16 at 21:00 Pantoprazole (Protonix Tab) 40 mg DAILY@06 PO Last administered on 12/22/16 06 :51; Admin Dose 40 MG; Start 12/21/16 at 06:00 Ondansetron HCl (Zofran Inj) 4 mg Q6H PRN IV NAUSEA AND/OR VOMITING; Start at 11:00 Acetaminophen (Tylenol Tab) 650 mg Q6H PRN PO PAIN LEVEL 1-3 OR FEVER; Start at 11:00 Acetaminophen (Tylenol Supp) 650 mg Q6H PRN [place] PAIN LEVEL 1-3 OR FEVER; Start 12/20/16 at 11:00 Acetaminophen/ Hydrocodone Bitart ([place] (5/325)) 1 tab Q6H PRN PO MODERATE PAIN LEVEL 4-6; Start 12/20/16 at 11:00 Acetaminophen/ Hydrocodone Bitart ([place] (5/325)) 2 tab Q6H PRN PO SEVERE PAIN LEVEL 7-10; Start 12/20/16 at 11:00 Morphine Sulfate (morphine) 2 mg Q4H PRN IV SEVERE PAIN LEVEL 7-10; Start 12/20 at 11:00 Docusate Sodium (Colace) 100 mg Q12H PRN PO CONSTIPATION; Start 12/20/16 at 11: 00 Magnesium Hydroxide (Milk Of Mag) 30 ml DAILY PRN PO CONSTIPATION; Start at 11:00 Bisacodyl 10 mg 10 mg DAILY PRN [place] CONSTIPATION; Start 12/20/16 at 11:00 Sodium Chloride (NS) 1,000 ml @ 75 mls/hr [id number] IV Last administered on 12/22 07:46; Admin Dose 75 MLS/HR; Start 12/20/16 at 11:00 Miscellaneous Information 1 ea NOTE XX ; Start 12/20/16 at 12:00 Glucose (Glutose) 15 gm Q15M PRN PO DECREASED GLUCOSE; Start 12/20/16 at 12:00 Glucose (Glutose) 22.5 gm Q15M PRN PO DECREASED GLUCOSE; Start 12/20/16 at 12: 00 Dextrose (D50w Syringe) 25 ml Q15M PRN IV DECREASED GLUCOSE; Start 12/20/16 at 12:00 Dextrose (D50w Syringe) 50 ml Q15M PRN IV DECREASED GLUCOSE; Start 12/20/16 at 12:00 Glucagon (Glucagen) 1 mg Q15M PRN IM DECREASED GLUCOSE; Start 12/20/16 at 12:00 Glucose 15 gm 15 gm Q15M PRN BUCCAL DECREASED GLUCOSE; Start 12/20/16 at 12:00 Levofloxacin/ Dextrose (Levaquin 500mg/ D5W 100 ml (Pmx)) 100 ml @ 100 mls/hr Q24H IVPB Last administered on 12/21/16 16:16; Admin Dose 100 MLS/HR; Start at 16:30 Insulin Glargine (Lantus) 10 unit QAM SC Last administered on 12/22/16 09:04; Admin Dose 10 UNIT; Start 12/21/16 at 10:00 Diagnostic Test (Pha) (Accucheck) 1 ea 02 XX Last administered on 12/22/16 01: 39; Admin Dose 1 EA; Start 12/22/16 at 02:00 Miscellaneous Information 1 ea NOTE XX ; Start 12/21/16 at 09:30 Glucose (Glutose) 15 gm Q15M PRN PO DECREASED GLUCOSE; Start 12/21/16 at 09:30 Glucose (Glutose) 22.5 gm Q15M PRN PO DECREASED GLUCOSE; Start 12/21/16 at 09: 30 Dextrose (D50w Syringe) 25 ml Q15M PRN IV DECREASED GLUCOSE; Start 12/21/16 at 09:30 Dextrose (D50w Syringe) 50 ml Q15M PRN IV DECREASED GLUCOSE; Start 12/21/16 at 09:30 Glucagon (Glucagen) 1 mg Q15M PRN IM DECREASED GLUCOSE; Start 12/21/16 at 09:30 Glucose (Glutose) 15 gm Q15M PRN BUCCAL DECREASED GLUCOSE; Start 12/21/16 at 09 :30 JASBIR LOZADA Dec 22, 2016 12:39
[2016-12-22] MEDS: LEVOFLOXACIN 500MG/D5W (PMX) 100 ML IVPB SCH (16:01)
--- NOTE | 2016-12-22 17:53 | PN ---
DATE: 12/22/2016 PULMONARY FOLLOWUP SUBJECTIVE: Chart reviewed. No significant events noted. The patient is breathing more comfortabl y now. PHYSICAL EXAMINATION: VITAL SIGNS: Blood pressure 132/63, pulse 94, respirations 18, temperature 98.5, currently on 4 lit ers O2 nasal cannula, saturating 95%. HEENT: Pupils are equal and reactive to light. Anicteric sclerae. NECK: Supple. No JVD noted, no cervical adenopathy, no carotid bruits heard. LUNGS: Few scattered rhonchi. CARDIOVASCULAR: S1, S2 normal. ABDOMEN: Soft, nontender. No organomegaly or masses noted. EXTREMITIES: No clubbing or cyanosis noted. NEUROLOGICAL: Awake and alert. LABORATORY DATA: WBC 6, hemoglobin 11.5, hematocrit 35.6, platelets 113. Sodium 136, potassium 4.7 , chloride 100, CO2 of 28, BUN 23, creatinine 0.54, glucose 228. Chest x-ray shows no significant changes. IMPRESSION: 1. Acute respiratory failure, hypoxemic. 2. Chronic obstructive pulmonary disease exacerbation. 3. Acute bronchitis. 4. Hemoptysis, likely related to bronchitis. 5. History of hepatitis C. 6. Thrombocytopenia. 7. Suspect underlying bronchiectasis. RECOMMENDATIONS: 1. Continue steroids. 2. Check cultures. 3. Antibiotics. 4. Oxygen. 5. Bronchodilators. 6. Gastrointestinal and deep venous thrombosis. Dictated By: LOWELL FERNÁNDEZ MD, MA/ANGE Conf#: [id number] DID#: [id number] CC: FAHEEM HERBERT MD;*EndCC*
[2016-12-22] MEDS: MONTELUKAST 10 MG TAB PO SCH (21:42)
[2016-12-23] VITALS (13 sets, daily range): BP systolic 108–154; BP diastolic 62–78; PULSE 92–100; RESP 16–20
[2016-12-23] MEDS: ALBUTEROL/IPRATROPIUM (NEB) 3 ML AMP HHN SCH ×6 (00:13→20:08)
[2016-12-23] MEDS: MAGNESIUM HYDROXIDE 30ML CUP PO PRN ×2 (01:38→23:10)
[2016-12-23] MEDS: ACCUCHECK XX SCH (01:39)
[2016-12-23] MEDS: SOD CHLORIDE 0.9% 1,000 ML IV SCH ×2 (01:39→19:48)
[2016-12-23] MEDS: PANTOPRAZOLE (EC) 40 MG TAB PO SCH (06:29)
[2016-12-23] MEDS: SALMETEROL/FLUTICASONE 500/50 INHA INH SCH ×2 (08:38→21:38)
[2016-12-23] MEDS: METHYLPREDNISOLONE 125 MG INJ IV SCH ×3 (08:38→21:39)
[2016-12-23] MEDS: MAGNESIUM OXIDE 400 MG TAB PO SCH (08:38)
[2016-12-23] MEDS: ASPIRIN 81 MG TAB PO SCH (08:38)
[2016-12-23] MEDS: NIFEdipine (XL) 30 MG TAB PO SCH ×2 (08:39→21:39)
[2016-12-23] MEDS: INSULIN ASPART [NOVOLOG] 3 ML PEN SC SCH ×4 (09:05→21:00)
[2016-12-23] MEDS: INSULIN GLARGINE [LANtus] 3 ML PEN SC SCH (10:19)
[2016-12-23] MEDS: metFORMIN 500 MG TAB PO SCH ×2 (12:23→18:00)
--- NOTE | 2016-12-23 12:44 | CONS ---
Date/Time of Note Date/Time of Note DATE: 12/23/16 TIME: 12:39 Assessment/Plan Assessment/Plan Additional Assessment/Plan Assessment/plan; 1. Patient admitted with severe COPD exacerbation acute, acute bronchitis, possibly underlying bronchiectasis. 2. Patient currently doing fairly well however has diffuse bilateral wheezing. 3. History of hepatitis C. 4. Thrombus cytopenia. Continue current treatment. Consultation Date/Type/Reason Admit Date/Time Dec 20, 2016 at 10:24 Initial Consult Date Reason for Consultation For follow-up on COPD exacerbation, acute bronchitis, possibly bronchiectasis. Exam/Review of Systems Vital Signs Vitals Vital Signs Date Time Temp Pulse Resp B/P Pulse Ox O2 Delivery O2 Flow Rate FiO2 12/23/16 12:06 94 12/23/16 11:59 97.9 20 108/78 98 12/23/16 11:36 Nasal Cannula 3.0 12/21/16 13:52 40 Intake and Output 12/22/16 12/22/16 12/23/16 15:00 23:00 07:00 Intake Total 1250 ml 1645 ml 475 ml Output Total 1400 ml Balance 1250 ml 245 ml 475 ml Exam Patient is doing fairly well she is completely awake alert complains of mild cough. Denies any nausea vomiting. Denies any fever chills. Complains of wheezing. Denies any further hemoptysis. General examination; elderly, awake and alert, currently in no distress. HEENT examination; supple neck, no JVD, no lymphadenopathy, pharynx is clear. No neck masses. Chest examination; diffuse bilateral wheezing. S1-S2 audible no murmurs. Abdomen examination; soft nontender, nondistended, no organomegaly. Bowel sounds audible. Extremity examination: No peripheral edema. Pulses 1+ bilaterally. GROUP DIRECTOR EXPERIENCE examination.: No focal deficit. Results Result Diagram: 12/22/16 0855 12/22/16 0855 Results 24 hrs Laboratory Tests Test 12/22/16 17:25 12/22/16 21:49 12/23/16 07:47 12/23/16 12:21 Bedside Glucose 222 H 143 235 H 169 Medications Medications Current Medications Albuterol/ Ipratropium (Duoneb) 3 ml Q4 HHN Last administered on 12/23/16t 09: 05; Admin Dose 3 ML; Start 12/20/16 at 13:00 Methylprednisolone Sodium Succinate (Solu-Medrol) 60 mg TID IV Last administered on 12/23/16 12:22; Admin Dose 60 MG; Start 12/20/16 at 13:00 Aspirin (Aspirin) 81 mg DAILY PO Last administered on 12/23/16 08:38; Admin Dose 81 MG; Start 12/21/16 at 09:00 Magnesium Oxide (Mag-Ox 400) 400 mg DAILY PO Last administered on 12/23/16 08: 38; Admin Dose 400 MG; Start 12/21/16 at 09:00 Montelukast Sodium (Singulair) 10 mg QHS PO Last administered on 12/22/16 21: 42; Admin Dose 10 MG; Start 12/20/16 at 21:00 Nifedipine (Procardia Xl) 30 mg BID PO Last administered on 12/23/16 08:39; Admin Dose 30 MG; Start 12/20/16 at 21:00 Salmeterol Xinafoate/ Fluticasone (Advair 500/50 Diskus) 1 inh BID INH Last administered on 12/23/16 08:38; Admin Dose 1 INH; Start 12/20/16 at 21:00 Pantoprazole (Protonix Tab) 40 mg DAILY@06 PO Last administered on 12/23/16 06 :29; Admin Dose 40 MG; Start 12/21/16 at 06:00 Ondansetron HCl (Zofran Inj) 4 mg Q6H PRN IV NAUSEA AND/OR VOMITING; Start at 11:00 Acetaminophen (Tylenol Tab) 650 mg Q6H PRN PO PAIN LEVEL 1-3 OR FEVER; Start at 11:00 Acetaminophen (Tylenol Supp) 650 mg Q6H PRN [place] PAIN LEVEL 1-3 OR FEVER; Start 12/20/16 at 11:00 Acetaminophen/ Hydrocodone Bitart ([place] (5/325)) 1 tab Q6H PRN PO MODERATE PAIN LEVEL 4-6; Start 12/20/16 at 11:00 Acetaminophen/ Hydrocodone Bitart ([place] (5/325)) 2 tab Q6H PRN PO SEVERE PAIN LEVEL 7-10; Start 12/20/16 at 11:00 Morphine Sulfate (morphine) 2 mg Q4H PRN IV SEVERE PAIN LEVEL 7-10; Start 12/20 at 11:00 Docusate Sodium (Colace) 100 mg Q12H PRN PO CONSTIPATION; Start 12/20/16 at 11: 00 Magnesium Hydroxide (Milk Of Mag) 30 ml DAILY PRN PO CONSTIPATION Last administered on 12/23/16 01:38; Admin Dose 30 ML; Start 12/20/16 at 11:00 Bisacodyl 10 mg 10 mg DAILY PRN [place] CONSTIPATION; Start 12/20/16 at 11:00 Sodium Chloride (NS) 1,000 ml @ 75 mls/hr [id number] IV Last administered on 12/23 01:39; Admin Dose 75 MLS/HR; Start 12/20/16 at 11:00 Miscellaneous Information 1 ea NOTE XX ; Start 12/20/16 at 12:00 Glucose (Glutose) 15 gm Q15M PRN PO DECREASED GLUCOSE; Start 12/20/16 at 12:00 Glucose (Glutose) 22.5 gm Q15M PRN PO DECREASED GLUCOSE; Start 12/20/16 at 12: 00 Dextrose (D50w Syringe) 25 ml Q15M PRN IV DECREASED GLUCOSE; Start 12/20/16 at 12:00 Dextrose (D50w Syringe) 50 ml Q15M PRN IV DECREASED GLUCOSE; Start 12/20/16 at 12:00 Glucagon (Glucagen) 1 mg Q15M PRN IM DECREASED GLUCOSE; Start 12/20/16 at 12:00 Glucose 15 gm 15 gm Q15M PRN BUCCAL DECREASED GLUCOSE; Start 12/20/16 at 12:00 Levofloxacin/ Dextrose (Levaquin 500mg/ D5W 100 ml (Pmx)) 100 ml @ 100 mls/hr Q24H IVPB Last administered on 12/22/16 16:01; Admin Dose 100 MLS/HR; Start at 16:30 Insulin Glargine (Lantus) 10 unit QAM SC Last administered on 12/23/16 10:19; Admin Dose 10 UNIT; Start 12/21/16 at 10:00 Diagnostic Test (Pha) (Accucheck) 1 ea 02 XX Last administered on 12/22/16 01: 39; Admin Dose 1 EA; Start 12/22/16 at 02:00 Miscellaneous Information 1 ea NOTE XX ; Start 12/21/16 at 09:30 Glucose (Glutose) 15 gm Q15M PRN PO DECREASED GLUCOSE; Start 12/21/16 at 09:30 Glucose (Glutose) 22.5 gm Q15M PRN PO DECREASED GLUCOSE; Start 12/21/16 at 09: 30 Dextrose (D50w Syringe) 25 ml Q15M PRN IV DECREASED GLUCOSE; Start 12/21/16 at 09:30 Dextrose (D50w Syringe) 50 ml Q15M PRN IV DECREASED GLUCOSE; Start 12/21/16 at 09:30 Glucagon (Glucagen) 1 mg Q15M PRN IM DECREASED GLUCOSE; Start 12/21/16 at 09:30 Glucose (Glutose) 15 gm Q15M PRN BUCCAL DECREASED GLUCOSE; Start 12/21/16 at 09 :30 CHU TINEO Dec 23, 2016 12:44
[2016-12-23 14:10] LABS: BASOPHILS % 0.1 % (0.0-2.0); HEMATOCRIT 38.1 % (37.0-47.0); HEMOGLOBIN 12.2 g/dl (12.0-16.0); LYMPHOCYTES # 0.5 10^3/ul (0.8-2.9); LYMPHOCYTES % 8.5 % (15.0-51.0); MEAN CORPUSCULAR HEMOGLOBIN 25.3 pg (29.0-33.0); MEAN CORPUSCULAR VOLUME 79.1 fl (82.0-101.0); MEAN PLATELET VOLUME 11.3 fl (7.4-10.4); MONOCYTE # 0.2 10^3/ul (0.3-0.9); MONOCYTES % 2.5 % (0.0-11.0); NEUTROPHIL # 5.3 10^3/ul (1.6-7.5); NEUTROPHILS % 88.9 % (39.0-77.0); PLATELET COUNT 121 10^3/UL (140-440); RED BLOOD COUNT 4.81 10^6/ul (4.20-5.40); RED CELL DISTRIBUTION WIDTH 14.9 % (11.5-14.5); UNCORRECTED WBC 5.9 10^3/ul (4.8-10.8); WHITE BLOOD COUNT 5.9 10^3/ul (4.8-10.8)
[2016-12-23 14:30] LABS: CONDITION 1; LH ANALYZER COMMENTS 1; SUSPECT 1
[2016-12-23 14:33] LABS: CALCIUM 9.6 mg/dl (8.4-10.2); CREATININE 0.53 mg/dl (0.44-1.00)
--- NOTE | 2016-12-23 15:24 | PN ---
Date/Time of Note Date/Time of Note DATE: 12/23/16 TIME: 15:21 Assessment/Plan VTE Prophylaxis VTE Prophylaxis Intervention: SCD's Lines/Catheters IV C[facility]ter Type (from [facility]): Peripheral IV Urinary Cath still in place: No Assessment/Plan Chief Complaint/Hosp Course Assessment and plan 1. Chronic obstructive pulmonary disease with exacerbation. Patient noted with active bronchospasm. Continue on steroid treatment. Will provide her with bronchodilators around the clock. We will titrate down O2 as tolerated. Of note patient did have CT scan of the chest that did show: Complete replacement right and left upper lobe and right middle lobe by bronchiectasis Juice Packaging Machines Setter following. Continue with recommendations 2. Hemoptysis. Improving at present. Continue pulmonary Recs. likely 3. History of chronic obstructive pulmonary disease, continued on bronchodilators. 4. History of diabetes. A1c at 6.4. Continue on insulin regimen 5. Deep venous thrombosis prophylaxis: SCDs. 6. Gastroesophageal reflux disease prophylaxis: H2 blockers. Disposition and plan: Still noted with some wheezing and shortness of breath. Continue with chick grader recommendations. Continue with breathing treatments. Await clinical improvement of respiratory status Discussed plan of care with Dr. Edwards Problems: Subjective 24 Hr Interval Summary Free Text/Dictation Still with reported hemoptysis and shortness of breath. Still with audible wheezing Exam/Review of Systems Vital Signs Vitals Vital Signs Date Time Temp Pulse Resp B/P Pulse Ox O2 Delivery O2 Flow Rate FiO2 12/23/16 13:05 80 18 98 Nasal Cannula 4.0 12/23/16 11:59 97.9 108/78 12/21/16 13:52 40 Intake and Output 12/22/16 12/22/16 12/23/16 14:59 22:59 06:59 Intake Total 1250 ml 1645 ml 475 ml Output Total 1400 ml Balance 1250 ml 245 ml 475 ml Exam General: No acute signs or symptoms of distress Eyes: pupils equal round, Anicteric sclera Neck: Supple nontender, no JVD Cardiac: S1, S2 auscultated, regular rhythm and rate Pulmonary: Coarse lung sounds auscultated bilaterally with also wheezing GI: Abdomen soft nontender nondistended, bowel sounds active Extremities: No edema bilateral lower extremities Skin: Clean dry and intact Neurologic: Alert to person place and time and situation Results Result Diagram: 12/23/16 1400 12/23/16 1400 Results 24 hrs Laboratory Tests Test 12/22/16 17:25 12/22/16 21:49 12/23/16 07:47 12/23/16 12:21 Bedside Glucose 222 H 143 235 H 169 Test 12/23/16 14:00 Anion Gap 14 Basophils # 0.0 Basophils % 0.1 Blood Morphology Comment Blood Urea Nitrogen 24 H Calcium Level 9.6 Carbon Dioxide Level 32 H Chloride Level 97 Creatinine 0.53 Eosinophils # 0.0 Eosinophils % 0.0 Glucose Level 207 Hematocrit 38.1 Hemoglobin 12.2 Lymphocytes # 0.5 L Lymphocytes % 8.5 L Mean Corpuscular Hemoglobin 25.3 L Mean Corpuscular Hemoglobin Concent 32.0 Mean Corpuscular Volume 79.1 L Mean Platelet Volume 11.3 H Monocytes # 0.2 L Monocytes % 2.5 Neutrophils # 5.3 Neutrophils % 88.9 H Nucleated Red Blood Cells # 0.0 Nucleated Red Blood Cells % 0.0 Platelet Count 121 L Potassium Level 5.0 Red Blood Count 4.81 Red Cell Distribution Width 14.9 H Sodium Level 138 White Blood Count 5.9 Medications Medications Current Medications Albuterol/ Ipratropium (Duoneb) 3 ml Q4 HHN Last administered on 12/23/16 13: 04; Admin Dose 3 ML; Start 12/20/16 at 13:00 Methylprednisolone Sodium Succinate (Solu-Medrol) 60 mg TID IV Last administered on 12/23/16 12:22; Admin Dose 60 MG; Start 12/20/16 at 13:00 Aspirin (Aspirin) 81 mg DAILY PO Last administered on 12/23/16 08:38; Admin Dose 81 MG; Start 12/21/16 at 09:00 Magnesium Oxide (Mag-Ox 400) 400 mg DAILY PO Last administered on 12/23/16 08: 38; Admin Dose 400 MG; Start 12/21/16 at 09:00 Montelukast Sodium (Singulair) 10 mg QHS PO Last administered on 12/22/16 21: 42; Admin Dose 10 MG; Start 12/20/16 at 21:00 Nifedipine (Procardia Xl) 30 mg BID PO Last administered on 12/23/16 08:39; Admin Dose 30 MG; Start 12/20/16 at 21:00 Salmeterol Xinafoate/ Fluticasone (Advair 500/50 Diskus) 1 inh BID INH Last administered on 12/23/16 08:38; Admin Dose 1 INH; Start 12/20/16 at 21:00 Pantoprazole (Protonix Tab) 40 mg DAILY@06 PO Last administered on 12/23/16 06 :29; Admin Dose 40 MG; Start 12/21/16 at 06:00 Ondansetron HCl (Zofran Inj) 4 mg Q6H PRN IV NAUSEA AND/OR VOMITING; Start at 11:00 Acetaminophen (Tylenol Tab) 650 mg Q6H PRN PO PAIN LEVEL 1-3 OR FEVER; Start at 11:00 Acetaminophen (Tylenol Supp) 650 mg Q6H PRN [place] PAIN LEVEL 1-3 OR FEVER; Start 12/20/16 at 11:00 Acetaminophen/ Hydrocodone Bitart ([place] (5/325)) 1 tab Q6H PRN PO MODERATE PAIN LEVEL 4-6; Start 12/20/16 at 11:00 Acetaminophen/ Hydrocodone Bitart ([place] (5/325)) 2 tab Q6H PRN PO SEVERE PAIN LEVEL 7-10; Start 12/20/16 at 11:00 Morphine Sulfate (morphine) 2 mg Q4H PRN IV SEVERE PAIN LEVEL 7-10; Start 12/20 at 11:00 Docusate Sodium (Colace) 100 mg Q12H PRN PO CONSTIPATION; Start 12/20/16 at 11: 00 Magnesium Hydroxide (Milk Of Mag) 30 ml DAILY PRN PO CONSTIPATION Last administered on 12/23/16 01:38; Admin Dose 30 ML; Start 12/20/16 at 11:00 Bisacodyl 10 mg 10 mg DAILY PRN [place] CONSTIPATION; Start 12/20/16 at 11:00 Sodium Chloride (NS) 1,000 ml @ 75 mls/hr [id number] IV Last administered on 12/23 01:39; Admin Dose 75 MLS/HR; Start 12/20/16 at 11:00 Miscellaneous Information 1 ea NOTE XX ; Start 12/20/16 at 12:00 Glucose (Glutose) 15 gm Q15M PRN PO DECREASED GLUCOSE; Start 12/20/16 at 12:00 Glucose (Glutose) 22.5 gm Q15M PRN PO DECREASED GLUCOSE; Start 12/20/16 at 12: 00 Dextrose (D50w Syringe) 25 ml Q15M PRN IV DECREASED GLUCOSE; Start 12/20/16 at 12:00 Dextrose (D50w Syringe) 50 ml Q15M PRN IV DECREASED GLUCOSE; Start 12/20/16 at 12:00 Glucagon (Glucagen) 1 mg Q15M PRN IM DECREASED GLUCOSE; Start 12/20/16 at 12:00 Glucose (Glutose) 15 gm Q15M PRN BUCC[place] DECREASED GLUCOSE; Start 12/20/16 at 12 :00 Insulin Glargine (Lantus) 10 unit QAM SC Last administered on 12/23/16 10:19; Admin Dose 10 UNIT; Start 12/21/16 at 10:00 Diagnostic Test (Pha) (Accucheck) 1 ea 02 XX Last administered on 12/22/16 01: 39; Admin Dose 1 EA; Start 12/22/16 at 02:00 Miscellaneous Information 1 ea NOTE XX ; Start 12/21/16 at 09:30 Glucose (Glutose) 15 gm Q15M PRN PO DECREASED GLUCOSE; Start 12/21/16 at 09:30 Glucose (Glutose) 22.5 gm Q15M PRN PO DECREASED GLUCOSE; Start 12/21/16 at 09: 30 Dextrose (D50w Syringe) 25 ml Q15M PRN IV DECREASED GLUCOSE; Start 12/21/16 at 09:30 Dextrose (D50w Syringe) 50 ml Q15M PRN IV DECREASED GLUCOSE; Start 12/21/16 at 09:30 Glucagon (Glucagen) 1 mg Q15M PRN IM DECREASED GLUCOSE; Start 12/21/16 at 09:30 Glucose (Glutose) 15 gm Q15M PRN BUCCAL DECREASED GLUCOSE; Start 12/21/16 at 09 :30 Levofloxacin (Levaquin) 500 mg DAILY@06 PO ; Start 12/23/16 at 16:00 JASBIR LOZADA Dec 23, 2016 15:24
[2016-12-23] MEDS: LEVOFLOXACIN 500 MG TAB PO SCH (16:11)
[2016-12-23] MEDS: MONTELUKAST 10 MG TAB PO SCH (21:40)
[2016-12-24] VITALS (13 sets, daily range): BP systolic 126–156; BP diastolic 59–95; PULSE 85–98; RESP 16–20
[2016-12-24] MEDS: ALBUTEROL/IPRATROPIUM (NEB) 3 ML AMP HHN SCH ×6 (00:09→20:59)
[2016-12-24] MEDS: ACCUCHECK XX SCH (02:00)
[2016-12-24] MEDS: PANTOPRAZOLE (EC) 40 MG TAB PO SCH (06:19)
[2016-12-24] MEDS: LEVOFLOXACIN 500 MG TAB PO SCH (06:19)
[2016-12-24] MEDS: METHYLPREDNISOLONE 125 MG INJ IV SCH ×3 (09:17→21:24)
[2016-12-24] MEDS: SALMETEROL/FLUTICASONE 500/50 INHA INH SCH ×2 (09:18→21:24)
[2016-12-24] MEDS: NIFEdipine (XL) 30 MG TAB PO SCH ×2 (09:20→21:23)
[2016-12-24] MEDS: MAGNESIUM OXIDE 400 MG TAB PO SCH (09:20)
[2016-12-24] MEDS: ASPIRIN 81 MG TAB PO SCH (09:20)
[2016-12-24] MEDS: INSULIN GLARGINE [LANtus] 3 ML PEN SC SCH (09:23)
[2016-12-24] MEDS: INSULIN ASPART [NOVOLOG] 3 ML PEN SC SCH ×4 (09:24→21:00)
--- NOTE | 2016-12-24 10:16 | CONS ---
Date/Time of Note Date/Time of Note DATE: 12/24/16 TIME: 10:13 Assessment/Plan Assessment/Plan Additional Assessment/Plan Assessment/plan; 1. Patient admitted with COPD exacerbation acute bronchitis with marked clinical improvement. Wheezing markedly improved. 2. History of leukocytopenia with stable platelet count. 3. History of hepatitis C. 4. Stable hypertension. Next Continue current treatment. Decrease Solu-Medrol dosing starting tomorrow and possibly switching the patient to prednisone orally. Meanwhile continue current treatment. Consultation Date/Type/Reason Admit Date/Time Dec 20, 2016 at 10:24 24 HR Interval Summary Free Text/Dictation Patient condition is improving according to her shortness of breath is much better as well as wheezing she still complains of occasional hemoptysis denies any sputum production any chest pain fever chills. General exam; elderly, awake alert currently in no distress. Exam/Review of Systems Vital Signs Vitals Vital Signs Date Time Temp Pulse Resp B/P Pulse Ox O2 Delivery O2 Flow Rate FiO2 12/24/16 09:30 97 4.0 12/24/16 09:30 98 25 Nasal Cannula 12/24/16 07:29 98.3 144/66 12/21/16 13:52 40 Intake and Output 12/23/16 12/23/16 12/24/16 15:00 23:00 07:00 Intake Total 1480 ml Output Total 700 ml Balance 1480 ml -700 ml Exam HEENT examination; supple neck, no JVD, no lymphadenopathy, no thyromegaly, midline trachea, with midsize pupils. Chest examination; diminished but clear breath sounds without any wheezing. S1- S2 audible no murmurs regular rhythm. Abdomen; soft, nondistended, no nontender, bowel sounds audible. Extremities; no peripheral edema, pulses 1+ bilaterally. DIRECTOR OF REGULATORY AFFAIRS examination; no focal deficit. Results Result Diagram: 12/23/16 1400 12/23/16 1400 Results 24 hrs Laboratory Tests Test 12/23/16 12:21 12/23/16 14:00 12/23/16 17:58 12/23/16 21:36 Bedside Glucose 169 216 157 Anion Gap 14 Basophils # 0.0 Basophils % 0.1 Blood Morphology Comment Blood Urea Nitrogen 24 H Calcium Level 9.6 Carbon Dioxide Level 32 H Chloride Level 97 Creatinine 0.53 Eosinophils # 0.0 Eosinophils % 0.0 Glucose Level 207 Hematocrit 38.1 Hemoglobin 12.2 Lymphocytes # 0.5 L Lymphocytes % 8.5 L Mean Corpuscular Hemoglobin 25.3 L Mean Corpuscular Hemoglobin Concent 32.0 Mean Corpuscular Volume 79.1 L Mean Platelet Volume 11.3 H Monocytes # 0.2 L Monocytes % 2.5 Neutrophils # 5.3 Neutrophils % 88.9 H Nucleated Red Blood Cells # 0.0 Nucleated Red Blood Cells % 0.0 Platelet Count 121 L Potassium Level 5.0 Red Blood Count 4.81 Red Cell Distribution Width 14.9 H Sodium Level 138 White Blood Count 5.9 Test 12/24/16 07:57 Bedside Glucose 183 Medications Medications Current Medications Albuterol/ Ipratropium (Duoneb) 3 ml Q4 HHN Last administered on 12/24/16 09: 30; Admin Dose 3 ML; Start 12/20/16 at 13:00 Methylprednisolone Sodium Succinate (Solu-Medrol) 60 mg TID IV Last administered on 12/24/16 09:17; Admin Dose 60 MG; Start 12/20/16 at 13:00 Aspirin (Aspirin) 81 mg DAILY PO Last administered on 12/24/16 09:20; Admin Dose 81 MG; Start 12/21/16 at 09:00 Magnesium Oxide (Mag-Ox 400) 400 mg DAILY PO Last administered on 12/24/16 09: 20; Admin Dose 400 MG; Start 12/21/16 at 09:00 Montelukast Sodium (Singulair) 10 mg QHS PO Last administered on 12/23/16 21: 40; Admin Dose 10 MG; Start 12/20/16 at 21:00 Nifedipine (Procardia Xl) 30 mg BID PO Last administered on 12/24/16 09:20; Admin Dose 30 MG; Start 12/20/16 at 21:00 Salmeterol Xinafoate/ Fluticasone (Advair 500/50 Diskus) 1 inh BID INH Last administered on 12/24/16 09:18; Admin Dose 1 INH; Start 12/20/16 at 21:00 Pantoprazole (Protonix Tab) 40 mg DAILY@06 PO Last administered on 12/24/16 06 :19; Admin Dose 40 MG; Start 12/21/16 at 06:00 Ondansetron HCl (Zofran Inj) 4 mg Q6H PRN IV NAUSEA AND/OR VOMITING; Start at 11:00 Acetaminophen (Tylenol Tab) 650 mg Q6H PRN PO PAIN LEVEL 1-3 OR FEVER; Start at 11:00 Acetaminophen (Tylenol Supp) 650 mg Q6H PRN [place] PAIN LEVEL 1-3 OR FEVER; Start 12/20/16 at 11:00 Acetaminophen/ Hydrocodone Bitart ([place] (5/325)) 1 tab Q6H PRN PO MODERATE PAIN LEVEL 4-6; Start 12/20/16 at 11:00 Acetaminophen/ Hydrocodone Bitart ([place] (5/325)) 2 tab Q6H PRN PO SEVERE PAIN LEVEL 7-10; Start 12/20/16 at 11:00 Morphine Sulfate (morphine) 2 mg Q4H PRN IV SEVERE PAIN LEVEL 7-10; Start 12/20 at 11:00 Docusate Sodium (Colace) 100 mg Q12H PRN PO CONSTIPATION; Start 12/20/16 at 11: 00 Magnesium Hydroxide (Milk Of Mag) 30 ml DAILY PRN PO CONSTIPATION Last administered on 12/23/16t 23:10; Admin Dose 30 ML; Start 12/20/16 at 11:00 Bisacodyl 10 mg 10 mg DAILY PRN [place] CONSTIPATION; Start 12/20/16 at 11:00 Sodium Chloride (NS) 1,000 ml @ 75 mls/hr [id number] IV Last administered on 12/23t 19:48; Admin Dose 75 MLS/HR; Start 12/20/16 at 11:00 Miscellaneous Information 1 ea NOTE XX ; Start 12/20/16 at 12:00 Glucose (Glutose) 15 gm Q15M PRN PO DECREASED GLUCOSE; Start 12/20/16 at 12:00 Glucose (Glutose) 22.5 gm Q15M PRN PO DECREASED GLUCOSE; Start 12/20/16 at 12: 00 Dextrose (D50w Syringe) 25 ml Q15M PRN IV DECREASED GLUCOSE; Start 12/20/16 at 12:00 Dextrose (D50w Syringe) 50 ml Q15M PRN IV DECREASED GLUCOSE; Start 12/20/16 at 12:00 Glucagon (Glucagen) 1 mg Q15M PRN IM DECREASED GLUCOSE; Start 12/20/16 at 12:00 Glucose (Glutose) 15 gm Q15M PRN BUCCAL DECREASED GLUCOSE; Start 12/20/16 at 12 :00 Insulin Glargine (Lantus) 10 unit QAM SC Last administered on 12/24/16 09:23; Admin Dose 10 UNIT; Start 12/21/16 at 10:00 Diagnostic Test (Pha) (Accucheck) 1 ea 02 XX Last administered on 12/22/16 01: 39; Admin Dose 1 EA; Start 12/22/16 at 02:00 Miscellaneous Information 1 ea NOTE XX ; Start 12/21/16 at 09:30 Glucose (Glutose) 15 gm Q15M PRN PO DECREASED GLUCOSE; Start 12/21/16 at 09:30 Glucose (Glutose) 22.5 gm Q15M PRN PO DECREASED GLUCOSE; Start 12/21/16 at 09: 30 Dextrose (D50w Syringe) 25 ml Q15M PRN IV DECREASED GLUCOSE; Start 12/21/16 at 09:30 Dextrose (D50w Syringe) 50 ml Q15M PRN IV DECREASED GLUCOSE; Start 12/21/16 at 09:30 Glucagon (Glucagen) 1 mg Q15M PRN IM DECREASED GLUCOSE; Start 12/21/16 at 09:30 Glucose (Glutose) 15 gm Q15M PRN BUCCAL DECREASED GLUCOSE; Start 12/21/16 at 09 :30 Levofloxacin (Levaquin) 500 mg DAILY@06 PO Last administered on 12/24/16 06:19 ; Admin Dose 500 MG; Start 12/23/16 at 16:00 CHU TINEO Dec 24, 2016 10:16
[2016-12-24] MEDS: metFORMIN 500 MG TAB PO SCH ×3 (11:50→17:21)
[2016-12-24 12:24] LABS: BASOPHILS % 0.2 % (0.0-2.0); HEMATOCRIT 38.2 % (37.0-47.0); HEMOGLOBIN 12.3 g/dl (12.0-16.0); LYMPHOCYTES # 0.5 10^3/ul (0.8-2.9); LYMPHOCYTES % 9.3 % (15.0-51.0); MEAN CORPUSCULAR HEMOGLOBIN 25.6 pg (29.0-33.0); MEAN CORPUSCULAR HGB CONC 32.3 g/dl (32.0-37.0); MEAN CORPUSCULAR VOLUME 79.2 fl (82.0-101.0); MEAN PLATELET VOLUME 11.2 fl (7.4-10.4); MONOCYTE # 0.4 10^3/ul (0.3-0.9); MONOCYTES % 8.2 % (0.0-11.0); NEUTROPHIL # 4.4 10^3/ul (1.6-7.5); NEUTROPHILS % 82.3 % (39.0-77.0); PLATELET COUNT 99 10^3/UL (140-440); RED BLOOD COUNT 4.82 10^6/ul (4.20-5.40); RED CELL DISTRIBUTION WIDTH 14.5 % (11.5-14.5); UNCORRECTED WBC 5.3 10^3/ul (4.8-10.8); WHITE BLOOD COUNT 5.3 10^3/ul (4.8-10.8)
[2016-12-24 12:55] LABS: CONDITION 1; LH ANALYZER COMMENTS 1; SUSPECT 1
--- NOTE | 2016-12-24 13:10 | PN ---
Date/Time of Note Date/Time of Note DATE: 12/24/16 TIME: 13:09 Assessment/Plan VTE Prophylaxis VTE Prophylaxis Intervention: SCD's Lines/Catheters IV [facility]ter Type (from [facility]): Peripheral IV Urinary Cath still in place: No Assessment/Plan Chief Complaint/Hosp Course Assessment and plan 1. Chronic obstructive pulmonary disease with exacerbation. Patient noted with active bronchospasm. Continue on steroid treatment. Will provide her with bronchodilators around the clock. We will titrate down O2 as tolerated. Of note patient did have CT scan of the chest that did show: Complete replacement right and left upper lobe and right middle lobe by bronchiectasis Training Program Assistant following. Continue with recommendations 2. Hemoptysis. Improving at present. Continue pulmonary Recs. likely secondary to acute bronchitis 3. History of chronic obstructive pulmonary disease, continued on bronchodilators. 4. History of diabetes. A1c at 6.4. Continue on insulin regimen 5. Deep venous thrombosis prophylaxis: SCDs. 6. Gastroesophageal reflux disease prophylaxis: H2 blockers. Disposition and plan: Continue with breathing treatments. Titrate down steroid per pulmonology recommendations. Titrate down O2. Discharge when medically stable and cleared by consultants Discussed plan of care with Dr. Edwards Problems: Subjective 24 Hr Interval Summary Free Text/Dictation Still with some shortness of breath. Little better today. Less wheezing noted Exam/Review of Systems Vital Signs Vitals Vital Signs Date Time Temp Pulse Resp B/P Pulse Ox O2 Delivery O2 Flow Rate FiO2 12/24/16 12:55 93 3.0 12/24/16 12:55 102 28 Nasal Cannula 12/24/16 11:26 97.9 129/61 12/21/16 13:52 40 Intake and Output 12/23/16 12/23/16 12/24/16 15:00 23:00 07:00 Intake Total 1480 ml Output Total 700 ml Balance 1480 ml -700 ml Exam General: No acute signs or symptoms of distress Eyes: pupils equal round, Anicteric sclera Neck: Supple nontender, no JVD Cardiac: S1, S2 auscultated, regular rhythm and rate Pulmonary: Less wheezing noted bilaterally GI: Abdomen soft nontender nondistended, bowel sounds active Extremities: No edema bilateral lower extremities Skin: Clean dry and intact Neurologic: Alert to person place and time and situation Results Result Diagram: 12/24/16 1135 12/23/16 1400 Results 24 hrs Laboratory Tests Test 12/23/16 14:00 12/23/16 17:58 12/23/16 21:36 12/24/16 07:57 Anion Gap 14 Basophils # 0.0 Basophils % 0.1 Blood Morphology Comment Blood Urea Nitrogen 24 H Calcium Level 9.6 Carbon Dioxide Level 32 H Chloride Level 97 Creatinine 0.53 Eosinophils # 0.0 Eosinophils % 0.0 Glucose Level 207 Hematocrit 38.1 Hemoglobin 12.2 Lymphocytes # 0.5 L Lymphocytes % 8.5 L Mean Corpuscular Hemoglobin 25.3 L Mean Corpuscular Hemoglobin Concent 32.0 Mean Corpuscular Volume 79.1 L Mean Platelet Volume 11.3 H Monocytes # 0.2 L Monocytes % 2.5 Neutrophils # 5.3 Neutrophils % 88.9 H Nucleated Red Blood Cells # 0.0 Nucleated Red Blood Cells % 0.0 Platelet Count 121 L Potassium Level 5.0 Red Blood Count 4.81 Red Cell Distribution Width 14.9 H Sodium Level 138 White Blood Count 5.9 Bedside Glucose 216 157 183 Test 12/24/16 11:35 12/24/16 11:54 Basophils # 0.0 Basophils % 0.2 Blood Morphology Comment Eosinophils # 0.0 Eosinophils % 0.0 Hematocrit 38.2 Hemoglobin 12.3 Lymphocytes # 0.5 L Lymphocytes % 9.3 L Mean Corpuscular Hemoglobin 25.6 L Mean Corpuscular Hemoglobin Concent 32.3 Mean Corpuscular Volume 79.2 L Mean Platelet Volume 11.2 H Monocytes # 0.4 Monocytes % 8.2 Neutrophils # 4.4 Neutrophils % 82.3 H Nucleated Red Blood Cells # 0.0 Nucleated Red Blood Cells % 0.0 Platelet Count 99 L Red Blood Count 4.82 Red Cell Distribution Width 14.5 White Blood Count 5.3 Bedside Glucose 121 Medications Medications Current Medications Albuterol/ Ipratropium (Duoneb) 3 ml Q4 HHN Last administered on 12/24/16 12: 54; Admin Dose 3 ML; Start 12/20/16 at 13:00 Methylprednisolone Sodium Succinate (Solu-Medrol) 60 mg TID IV Last administered on 12/24/16 12:18; Admin Dose 60 MG; Start 12/20/16 at 13:00 Aspirin (Aspirin) 81 mg DAILY PO Last administered on 12/24/16 09:20; Admin Dose 81 MG; Start 12/21/16 at 09:00 Magnesium Oxide (Mag-Ox 400) 400 mg DAILY PO Last administered on 12/24/16 09: 20; Admin Dose 400 MG; Start 12/21/16 at 09:00 Montelukast Sodium (Singulair) 10 mg QHS PO Last administered on 12/23/16 21: 40; Admin Dose 10 MG; Start 12/20/16 at 21:00 Nifedipine (Procardia Xl) 30 mg BID PO Last administered on 12/24/16 09:20; Admin Dose 30 MG; Start 12/20/16 at 21:00 Salmeterol Xinafoate/ Fluticasone (Advair 500/50 Diskus) 1 inh BID INH Last administered on 12/24/16 09:18; Admin Dose 1 INH; Start 12/20/16 at 21:00 Pantoprazole (Protonix Tab) 40 mg DAILY@06 PO Last administered on 12/24/16 06 :19; Admin Dose 40 MG; Start 12/21/16 at 06:00 Ondansetron HCl (Zofran Inj) 4 mg Q6H PRN IV NAUSEA AND/OR VOMITING; Start at 11:00 Acetaminophen (Tylenol Tab) 650 mg Q6H PRN PO PAIN LEVEL 1-3 OR FEVER; Start at 11:00 Acetaminophen (Tylenol Supp) 650 mg Q6H PRN [place] PAIN LEVEL 1-3 OR FEVER; Start 12/20/16 at 11:00 Acetaminophen/ Hydrocodone Bitart ([place] (5/325)) 1 tab Q6H PRN PO MODERATE PAIN LEVEL 4-6; Start 12/20/16 at 11:00 Acetaminophen/ Hydrocodone Bitart ([place] (5/325)) 2 tab Q6H PRN PO SEVERE PAIN LEVEL 7-10; Start 12/20/16 at 11:00 Morphine Sulfate (morphine) 2 mg Q4H PRN IV SEVERE PAIN LEVEL 7-10; Start 12/20 at 11:00 Docusate Sodium (Colace) 100 mg Q12H PRN PO CONSTIPATION; Start 12/20/16 at 11: 00 Magnesium Hydroxide (Milk Of Mag) 30 ml DAILY PRN PO CONSTIPATION Last administered on 12/23/16 23:10; Admin Dose 30 ML; Start 12/20/16 at 11:00 Bisacodyl (Dulcolax Supp) 10 mg DAILY PRN [place] CONSTIPATION; Start 12/20/16 at 11 :00 Miscellaneous Information 1 ea NOTE XX ; Start 12/20/16 at 12:00 Glucose (Glutose) 15 gm Q15M PRN PO DECREASED GLUCOSE; Start 12/20/16 at 12:00 Glucose (Glutose) 22.5 gm Q15M PRN PO DECREASED GLUCOSE; Start 12/20/16 at 12: 00 Dextrose (D50w Syringe) 25 ml Q15M PRN IV DECREASED GLUCOSE; Start 12/20/16 at 12:00 Dextrose (D50w Syringe) 50 ml Q15M PRN IV DECREASED GLUCOSE; Start 12/20/16 at 12:00 Glucagon (Glucagen) 1 mg Q15M PRN IM DECREASED GLUCOSE; Start 12/20/16 at 12:00 Glucose (Glutose) 15 gm Q15M PRN BUCCAL DECREASED GLUCOSE; Start 12/20/16 at 12 :00 Insulin Glargine (Lantus) 10 unit QAM SC Last administered on 12/24/16t 09:23; Admin Dose 10 UNIT; Start 12/21/16 at 10:00 Diagnostic Test (Pha) (Accucheck) 1 ea 02 XX Last administered on 12/22/16t 01: 39; Admin Dose 1 EA; Start 12/22/16 at 02:00 Miscellaneous Information 1 ea NOTE XX ; Start 12/21/16 at 09:30 Glucose (Glutose) 15 gm Q15M PRN PO DECREASED GLUCOSE; Start 12/21/16 at 09:30 Glucose (Glutose) 22.5 gm Q15M PRN PO DECREASED GLUCOSE; Start 12/21/16 at 09: 30 Dextrose (D50w Syringe) 25 ml Q15M PRN IV DECREASED GLUCOSE; Start 12/21/16 at 09:30 Dextrose (D50w Syringe) 50 ml Q15M PRN IV DECREASED GLUCOSE; Start 12/21/16 at 09:30 Glucagon (Glucagen) 1 mg Q15M PRN IM DECREASED GLUCOSE; Start 12/21/16 at 09:30 Glucose (Glutose) 15 gm Q15M PRN BUCCAL DECREASED GLUCOSE; Start 12/21/16 at 09 :30 Levofloxacin (Levaquin) 500 mg DAILY@06 PO Last administered on 12/24/16 06:19 ; Admin Dose 500 MG; Start 12/23/16 at 16:00 JASBIR LOZADA Dec 24, 2016 13:10
[2016-12-24 13:26] LABS: CREATININE 0.53 mg/dl (0.44-1.00)
[2016-12-24 13:27] LABS: CALCIUM 9.7 mg/dl (8.4-10.2)
[2016-12-24] MEDS: MONTELUKAST 10 MG TAB PO SCH (21:23)
[2016-12-25] VITALS (11 sets, daily range): BP systolic 128–145; BP diastolic 60–67; PULSE 88–104; RESP 16–20
[2016-12-25] MEDS: ALBUTEROL/IPRATROPIUM (NEB) 3 ML AMP HHN SCH ×6 (01:00→20:31)
[2016-12-25] MEDS: ACCUCHECK XX SCH (02:00)
[2016-12-25] MEDS: LEVOFLOXACIN 500 MG TAB PO SCH (05:59)
[2016-12-25] MEDS: PANTOPRAZOLE (EC) 40 MG TAB PO SCH (05:59)
[2016-12-25 08:15] LABS: BASOPHILS % 0.3 % (0.0-2.0); HEMATOCRIT 37.4 % (37.0-47.0); LYMPHOCYTES # 0.4 10^3/ul (0.8-2.9); LYMPHOCYTES % 9.3 % (15.0-51.0); MEAN CORPUSCULAR HEMOGLOBIN 25.5 pg (29.0-33.0); MEAN CORPUSCULAR HGB CONC 32.1 g/dl (32.0-37.0); MEAN CORPUSCULAR VOLUME 79.4 fl (82.0-101.0); MEAN PLATELET VOLUME 11.6 fl (7.4-10.4); MONOCYTE # 0.2 10^3/ul (0.3-0.9); MONOCYTES % 5.6 % (0.0-11.0); NEUTROPHIL # 3.5 10^3/ul (1.6-7.5); NEUTROPHILS % 84.8 % (39.0-77.0); RED BLOOD COUNT 4.71 10^6/ul (4.20-5.40); RED CELL DISTRIBUTION WIDTH 14.2 % (11.5-14.5); UNCORRECTED WBC 4.1 10^3/ul (4.8-10.8); WHITE BLOOD COUNT 4.1 10^3/ul (4.8-10.8)
[2016-12-25 08:20] LABS: POTASSIUM 4.8 mmol/L (3.5-5.1)
[2016-12-25 08:22] LABS: CREATININE 0.5 mg/dl (0.44-1.00)
[2016-12-25 08:24] LABS: CALCIUM 9.1 mg/dl (8.4-10.2)
[2016-12-25 08:32] LABS: CONDITION 1; LH ANALYZER COMMENTS 1; SUSPECT 1
[2016-12-25 08:33] LABS: PLATELET COUNT 95 10^3/UL (140-440)
[2016-12-25] MEDS: ASPIRIN 81 MG TAB PO SCH (08:40)
[2016-12-25] MEDS: MAGNESIUM OXIDE 400 MG TAB PO SCH (08:40)
[2016-12-25] MEDS: NIFEdipine (XL) 30 MG TAB PO SCH ×2 (08:41→20:35)
[2016-12-25] MEDS: INSULIN ASPART [NOVOLOG] 3 ML PEN SC SCH ×4 (08:45→20:22)
[2016-12-25] MEDS: METHYLPREDNISOLONE 125 MG INJ IV SCH ×3 (08:46→20:34)
[2016-12-25] MEDS: SALMETEROL/FLUTICASONE 500/50 INHA INH SCH ×2 (08:46→20:34)
[2016-12-25] MEDS: INSULIN GLARGINE [LANtus] 3 ML PEN SC SCH (08:46)
--- NOTE | 2016-12-25 09:27 | CONS ---
Date/Time of Note Date/Time of Note DATE: 12/25/16 TIME: 09:25 Assessment/Plan Assessment/Plan Additional Assessment/Plan Assessment and recommendations; 1. Patient admitted with COPD exacerbation acute bronchitis with very slow improvement. Next 2. Underlying COPD. Next 3. Chronic thrombocytopenia with stable platelet count. 4. Hepatitis C. 5. Stable hypertension. Continue current treatment. Consultation Date/Type/Reason Admit Date/Time Dec 20, 2016 at 10:24 24 HR Interval Summary Free Text/Dictation Patient's condition is about the same. Patient denies any improvement compared to yesterday and shortness of breath still wheezing off and on complains of cough without any hemoptysis. No sputum production. Exam/Review of Systems Vital Signs Vitals Vital Signs Date Time Temp Pulse Resp B/P Pulse Ox O2 Delivery O2 Flow Rate FiO2 12/25/16 09:04 90 20 96 Nasal Cannula 3.0 32 12/25/16 07:48 97.7 137/67 Intake and Output 12/24/16 12/24/16 12/25/16 15:00 23:00 07:00 Intake Total 2320 ml 1500 ml Output Total 850 ml Balance 2320 ml 650 ml Exam H EENT examination: supple neck, patient has multiple missing teeth. No neck masses. No thyromegaly. No lymphadenopathy. Pupils are small bilaterally. Chest examination: diminished breath sounds throughout with bilateral wheezing S1-S2 audible no murmurs regular rhythm. Abdomen examination: soft, nontender, nondistended, no organomegaly. Bowel sounds audible. Extremity examination: no peripheral edema. Next SWITCH TECHNICIAN examination: no focal deficit. Results Result Diagram: 12/25/16 0708 12/25/16 0700 Results 24 hrs Laboratory Tests Test 12/24/16 11:35 12/24/16 11:54 12/24/16 17:13 12/24/16 21:22 Anion Gap 15 Basophils # 0.0 Basophils % 0.2 Blood Morphology Comment Blood Urea Nitrogen 25 H Calcium Level 9.7 Carbon Dioxide Level 31 Chloride Level 97 Creatinine 0.53 Eosinophils # 0.0 Eosinophils % 0.0 Glucose Level 109 # Hematocrit 38.2 Hemoglobin 12.3 Lymphocytes # 0.5 L Lymphocytes % 9.3 L Mean Corpuscular Hemoglobin 25.6 L Mean Corpuscular Hemoglobin Concent 32.3 Mean Corpuscular Volume 79.2 L Mean Platelet Volume 11.2 H Monocytes # 0.4 Monocytes % 8.2 Neutrophils # 4.4 Neutrophils % 82.3 H Nucleated Red Blood Cells # 0.0 Nucleated Red Blood Cells % 0.0 Platelet Count 99 L Potassium Level 5.0 Red Blood Count 4.82 Red Cell Distribution Width 14.5 Sodium Level 138 White Blood Count 5.3 Bedside Glucose 121 160 129 Test 12/25/16 07:00 12/25/16 07:08 12/25/16 07:34 Anion Gap 14 Blood Urea Nitrogen 26 H Calcium Level 9.1 Carbon Dioxide Level 32 H Chloride Level 96 L Creatinine 0.50 Glucose Level 258 #H Potassium Level 4.8 Sodium Level 137 Basophils # 0.0 Basophils % 0.3 Blood Morphology Comment Eosinophils # 0.0 Eosinophils % 0.0 Hematocrit 37.4 Hemoglobin 12.0 Lymphocytes # 0.4 L Lymphocytes % 9.3 L Mean Corpuscular Hemoglobin 25.5 L Mean Corpuscular Hemoglobin Concent 32.1 Mean Corpuscular Volume 79.4 L Mean Platelet Volume 11.6 H Monocytes # 0.2 L Monocytes % 5.6 Neutrophils # 3.5 Neutrophils % 84.8 H Nucleated Red Blood Cells # 0.0 Nucleated Red Blood Cells % 0.0 Platelet Count 95 L Red Blood Count 4.71 Red Cell Distribution Width 14.2 White Blood Count 4.1 #L Bedside Glucose 271 H Medications Medications Current Medications Albuterol/ Ipratropium (Duoneb) 3 ml Q4 HHN Last administered on 12/25/16 09: 04; Admin Dose 3 ML; Start 12/20/16 at 13:00 Methylprednisolone Sodium Succinate (Solu-Medrol) 60 mg TID IV Last administered on 12/25/16 08:46; Admin Dose 60 MG; Start 12/20/16 at 13:00 Aspirin (Aspirin) 81 mg DAILY PO Last administered on 12/25/16 08:40; Admin Dose 81 MG; Start 12/21/16 at 09:00 Magnesium Oxide (Mag-Ox 400) 400 mg DAILY PO Last administered on 12/25/16 08: 40; Admin Dose 400 MG; Start 12/21/16 at 09:00 Montelukast Sodium (Singulair) 10 mg QHS PO Last administered on 12/24/16 21: 23; Admin Dose 10 MG; Start 12/20/16 at 21:00 Nifedipine (Procardia Xl) 30 mg BID PO Last administered on 12/25/16 08:41; Admin Dose 30 MG; Start 12/20/16 at 21:00 Salmeterol Xinafoate/ Fluticasone (Advair 500/50 Diskus) 1 inh BID INH Last administered on 12/25/16 08:46; Admin Dose 1 INH; Start 12/20/16 at 21:00 Pantoprazole (Protonix Tab) 40 mg DAILY@06 PO Last administered on 12/25/16 05 :59; Admin Dose 40 MG; Start 12/21/16 at 06:00 Ondansetron HCl (Zofran Inj) 4 mg Q6H PRN IV NAUSEA AND/OR VOMITING; Start at 11:00 Acetaminophen (Tylenol Tab) 650 mg Q6H PRN PO PAIN LEVEL 1-3 OR FEVER; Start at 11:00 Acetaminophen (Tylenol Supp) 650 mg Q6H PRN [place] PAIN LEVEL 1-3 OR FEVER; Start 12/20/16 at 11:00 Acetaminophen/ Hydrocodone Bitart ([place] (5/325)) 1 tab Q6H PRN PO MODERATE PAIN LEVEL 4-6; Start 12/20/16 at 11:00 Acetaminophen/ Hydrocodone Bitart ([place] (5/325)) 2 tab Q6H PRN PO SEVERE PAIN LEVEL 7-10; Start 12/20/16 at 11:00 Morphine Sulfate (morphine) 2 mg Q4H PRN IV SEVERE PAIN LEVEL 7-10; Start 12/20 at 11:00 Docusate Sodium (Colace) 100 mg Q12H PRN PO CONSTIPATION; Start 12/20/16 at 11: 00 Magnesium Hydroxide (Milk Of Mag) 30 ml DAILY PRN PO CONSTIPATION Last administered on 12/23/16 23:10; Admin Dose 30 ML; Start 12/20/16 at 11:00 Bisacodyl (Dulcolax Supp) 10 mg DAILY PRN [place] CONSTIPATION Last administered on 12/24/16 14:49; Admin Dose 10 MG; Start 12/20/16 at 11:00 Miscellaneous Information 1 ea NOTE XX ; Start 12/20/16 at 12:00 Glucose (Glutose) 15 gm Q15M PRN PO DECREASED GLUCOSE; Start 12/20/16 at 12:00 Glucose (Glutose) 22.5 gm Q15M PRN PO DECREASED GLUCOSE; Start 12/20/16 at 12: 00 Dextrose (D50w Syringe) 25 ml Q15M PRN IV DECREASED GLUCOSE; Start 12/20/16 at 12:00 Dextrose (D50w Syringe) 50 ml Q15M PRN IV DECREASED GLUCOSE; Start 12/20/16 at 12:00 Glucagon (Glucagen) 1 mg Q15M PRN IM DECREASED GLUCOSE; Start 12/20/16 at 12:00 Glucose (Glutose) 15 gm Q15M PRN BUCCAL DECREASED GLUCOSE; Start 12/20/16 at 12 :00 Insulin Glargine (Lantus) 10 unit QAM SC Last administered on 12/25/16 08:46; Admin Dose 10 UNIT; Start 12/21/16 at 10:00 Diagnostic Test (Pha) (Accucheck) 1 ea 02 XX Last administered on 12/22/16 01: 39; Admin Dose 1 EA; Start 12/22/16 at 02:00 Miscellaneous Information 1 ea NOTE XX ; Start 12/21/16 at 09:30 Glucose (Glutose) 15 gm Q15M PRN PO DECREASED GLUCOSE; Start 12/21/16 at 09:30 Glucose (Glutose) 22.5 gm Q15M PRN PO DECREASED GLUCOSE; Start 12/21/16 at 09: 30 Dextrose (D50w Syringe) 25 ml Q15M PRN IV DECREASED GLUCOSE; Start 12/21/16 at 09:30 Dextrose (D50w Syringe) 50 ml Q15M PRN IV DECREASED GLUCOSE; Start 12/21/16 at 09:30 Glucagon (Glucagen) 1 mg Q15M PRN IM DECREASED GLUCOSE; Start 12/21/16 at 09:30 Glucose (Glutose) 15 gm Q15M PRN BUCCAL DECREASED GLUCOSE; Start 12/21/16 at 09 :30 Levofloxacin (Levaquin) 500 mg DAILY@06 PO Last administered on 12/25/16 05:59 ; Admin Dose 500 MG; Start 12/23/16 at 16:00 CHU TINEO Dec 25, 2016 09:27
[2016-12-25] MEDS: metFORMIN 500 MG TAB PO SCH ×2 (12:18→18:03)
--- NOTE | 2016-12-25 14:15 | PN ---
Date/Time of Note Date/Time of Note DATE: 12/25/16 TIME: 14:06 Assessment/Plan VTE Prophylaxis VTE Prophylaxis Intervention: LMWH Lines/Catheters IV Catheter Type (from [facility]): Saline Lock Urinary Cath still in place: No Assessment/Plan Assessment/Plan 1. Chronic obstructive pulmonary disease with exacerbation. still wheezing, continue present management 2. Diabetes.mellitus, A1c at 6.4. Continue on insulin regimen 3. Deep venous thrombosis prophylaxis: SCDs. 4. Gastroesophageal reflux disease prophylaxis: H2 blockers. Exam/Review of Systems Vital Signs Vitals Vital Signs Date Time Temp Pulse Resp B/P Pulse Ox O2 Delivery O2 Flow Rate FiO2 12/25/16 12:29 88 12/25/16 11:41 98.0 20 145/64 98 12/25/16 10:12 Nasal Cannula 3.0 12/25/16 09:04 32 Intake and Output 12/24/16 12/24/16 12/25/16 15:00 23:00 07:00 Intake Total 2320 ml 1500 ml Output Total 850 ml Balance 2320 ml 650 ml Exam Constitutional: alert, oriented, well developed Psych: nl mood/affect, no complaints Head: atraumatic, normocephalic Eyes: EOMI, PERRL, nl conjunctiva, nl lids, nl sclera ENMT: mucosa pink and moist, nl external ears & nose, nl lips & teeth, nl nasal mucosa & septum Neck: non-tender, supple Respiratory: wheezing (diffusely) Cardiovascular: nl pulses, regular rate and rhythm, No S3, No S4, No bruits, No diastolic murmur, No edema, No gallop, No irregular rhythm, No jugular venous distention (JVD), No murmurs/extra sounds, No rub, No systolic murmur Gastrointestinal: nl liver, spleen, non-tender, soft, No ascites, No bowel sounds, No distended, No firm, No hepatomegaly, No mass , No rebound or guarding, No splenomegaly, No surgical scars, No tender Musculoskeletal: nl extremities to inspection Extremities: normal pulses, No calf tenderness, No clubbing, No cyanosis, No edema, No palpable cord, No pitting pedal edema, No tenderness Neurological: ROLL CAPPER II-XII intact, nl mental status, nl speech, nl strength Skin: nl turgor, rash or lesions Lymph: nl lymph nodes Results Result Diagram: 12/25/16 0708 12/25/16 0700 Results 24 hrs Laboratory Tests Test 12/24/16 17:13 12/24/16 21:22 12/25/16 07:00 12/25/16 07:08 Bedside Glucose 160 129 Anion Gap 14 Blood Urea Nitrogen 26 H Calcium Level 9.1 Carbon Dioxide Level 32 H Chloride Level 96 L Creatinine 0.50 Glucose Level 258 #H Potassium Level 4.8 Sodium Level 137 Basophils # 0.0 Basophils % 0.3 Blood Morphology Comment Eosinophils # 0.0 Eosinophils % 0.0 Hematocrit 37.4 Hemoglobin 12.0 Lymphocytes # 0.4 L Lymphocytes % 9.3 L Mean Corpuscular Hemoglobin 25.5 L Mean Corpuscular Hemoglobin Concent 32.1 Mean Corpuscular Volume 79.4 L Mean Platelet Volume 11.6 H Monocytes # 0.2 L Monocytes % 5.6 Neutrophils # 3.5 Neutrophils % 84.8 H Nucleated Red Blood Cells # 0.0 Nucleated Red Blood Cells % 0.0 Platelet Count 95 L Red Blood Count 4.71 Red Cell Distribution Width 14.2 White Blood Count 4.1 #L Test 12/25/16 07:34 12/25/16 11:40 Bedside Glucose 271 H 214 Medications Medications Current Medications Albuterol/ Ipratropium (Duoneb) 3 ml Q4 HHN Last administered on 12/25/16 09: 04; Admin Dose 3 ML; Start 12/20/16 at 13:00 Methylprednisolone Sodium Succinate (Solu-Medrol) 60 mg TID IV Last administered on 12/25/16 12:18; Admin Dose 60 MG; Start 12/20/16 at 13:00 Aspirin (Aspirin) 81 mg DAILY PO Last administered on 12/25/16 08:40; Admin Dose 81 MG; Start 12/21/16 at 09:00 Magnesium Oxide (Mag-Ox 400) 400 mg DAILY PO Last administered on 12/25/16 08: 40; Admin Dose 400 MG; Start 12/21/16 at 09:00 Montelukast Sodium (Singulair) 10 mg QHS PO Last administered on 12/24/16 21: 23; Admin Dose 10 MG; Start 12/20/16 at 21:00 Nifedipine (Procardia Xl) 30 mg BID PO Last administered on 12/25/16 08:41; Admin Dose 30 MG; Start 12/20/16 at 21:00 Salmeterol Xinafoate/ Fluticasone (Advair 500/50 Diskus) 1 inh BID INH Last administered on 12/25/16 08:46; Admin Dose 1 INH; Start 12/20/16 at 21:00 Pantoprazole (Protonix Tab) 40 mg DAILY@06 PO Last administered on 12/25/16 05 :59; Admin Dose 40 MG; Start 12/21/16 at 06:00 Ondansetron HCl (Zofran Inj) 4 mg Q6H PRN IV NAUSEA AND/OR VOMITING; Start at 11:00 Acetaminophen (Tylenol Tab) 650 mg Q6H PRN PO PAIN LEVEL 1-3 OR FEVER; Start at 11:00 Acetaminophen (Tylenol Supp) 650 mg Q6H PRN [place] PAIN LEVEL 1-3 OR FEVER; Start 12/20/16 at 11:00 Acetaminophen/ Hydrocodone Bitart ([place] (5/325)) 1 tab Q6H PRN PO MODERATE PAIN LEVEL 4-6; Start 12/20/16 at 11:00 Acetaminophen/ Hydrocodone Bitart ([place] (5/325)) 2 tab Q6H PRN PO SEVERE PAIN LEVEL 7-10; Start 12/20/16 at 11:00 Morphine Sulfate (morphine) 2 mg Q4H PRN IV SEVERE PAIN LEVEL 7-10; Start 12/20 at 11:00 Docusate Sodium (Colace) 100 mg Q12H PRN PO CONSTIPATION; Start 12/20/16 at 11: 00 Magnesium Hydroxide (Milk Of Mag) 30 ml DAILY PRN PO CONSTIPATION Last administered on 12/23/16 23:10; Admin Dose 30 ML; Start 12/20/16 at 11:00 Bisacodyl (Dulcolax Supp) 10 mg DAILY PRN [place] CONSTIPATION Last administered on 12/24/16 14:49; Admin Dose 10 MG; Start 12/20/16 at 11:00 Miscellaneous Information 1 ea NOTE XX ; Start 12/20/16 at 12:00 Glucose (Glutose) 15 gm Q15M PRN PO DECREASED GLUCOSE; Start 12/20/16 at 12:00 Glucose (Glutose) 22.5 gm Q15M PRN PO DECREASED GLUCOSE; Start 12/20/16 at 12: 00 Dextrose (D50w Syringe) 25 ml Q15M PRN IV DECREASED GLUCOSE; Start 12/20/16 at 12:00 Dextrose (D50w Syringe) 50 ml Q15M PRN IV DECREASED GLUCOSE; Start 12/20/16 at 12:00 Glucagon (Glucagen) 1 mg Q15M PRN IM DECREASED GLUCOSE; Start 12/20/16 at 12:00 Glucose (Glutose) 15 gm Q15M PRN BUCCAL DECREASED GLUCOSE; Start 12/20/16 at 12 :00 Insulin Glargine (Lantus) 10 unit QAM SC Last administered on 12/25/16 08:46; Admin Dose 10 UNIT; Start 12/21/16 at 10:00 Diagnostic Test (Pha) (Accucheck) 1 ea 02 XX Last administered on 12/22/16 01: 39; Admin Dose 1 EA; Start 12/22/16 at 02:00 Miscellaneous Information 1 ea NOTE XX ; Start 12/21/16 at 09:30 Glucose (Glutose) 15 gm Q15M PRN PO DECREASED GLUCOSE; Start 12/21/16 at 09:30 Glucose (Glutose) 22.5 gm Q15M PRN PO DECREASED GLUCOSE; Start 12/21/16 at 09: 30 Dextrose (D50w Syringe) 25 ml Q15M PRN IV DECREASED GLUCOSE; Start 12/21/16 at 09:30 Dextrose (D50w Syringe) 50 ml Q15M PRN IV DECREASED GLUCOSE; Start 12/21/16 at 09:30 Glucagon (Glucagen) 1 mg Q15M PRN IM DECREASED GLUCOSE; Start 12/21/16 at 09:30 Glucose (Glutose) 15 gm Q15M PRN BUCCAL DECREASED GLUCOSE; Start 12/21/16 at 09 :30 Levofloxacin (Levaquin) 500 mg DAILY@06 PO Last administered on 12/25/16 05:59 ; Admin Dose 500 MG; Start 12/23/16 at 16:00 STACEY EID MD Dec 25, 2016 14:15
[2016-12-25] MEDS: ENOXAPARIN 40 MG/0.4 ML SYG SC SCH (16:53)
[2016-12-25] MEDS: MONTELUKAST 10 MG TAB PO SCH (20:34)
[2016-12-26] VITALS (13 sets, daily range): BP systolic 121–180; BP diastolic 60–74; PULSE 85–106; RESP 17–18
[2016-12-26] MEDS: ALBUTEROL/IPRATROPIUM (NEB) 3 ML AMP HHN SCH ×6 (01:02→20:41)
[2016-12-26] MEDS: ACCUCHECK XX SCH (02:00)
[2016-12-26] MEDS: PANTOPRAZOLE (EC) 40 MG TAB PO SCH (05:24)
[2016-12-26] MEDS: LEVOFLOXACIN 500 MG TAB PO SCH (05:24)
[2016-12-26 06:19] LABS: HEMATOCRIT 37.8 % (37.0-47.0); HEMOGLOBIN 12.4 g/dl (12.0-16.0); LYMPHOCYTES # 0.6 10^3/ul (0.8-2.9); LYMPHOCYTES % 10.6 % (15.0-51.0); MEAN CORPUSCULAR HEMOGLOBIN 25.8 pg (29.0-33.0); MEAN CORPUSCULAR HGB CONC 32.7 g/dl (32.0-37.0); MEAN CORPUSCULAR VOLUME 79.1 fl (82.0-101.0); MEAN PLATELET VOLUME 11.1 fl (7.4-10.4); MONOCYTE # 0.3 10^3/ul (0.3-0.9); MONOCYTES % 5.8 % (0.0-11.0); NEUTROPHIL # 4.4 10^3/ul (1.6-7.5); NEUTROPHILS % 83.6 % (39.0-77.0); PLATELET COUNT 112 10^3/UL (140-440); RED BLOOD COUNT 4.78 10^6/ul (4.20-5.40); UNCORRECTED WBC 5.3 10^3/ul (4.8-10.8); WHITE BLOOD COUNT 5.3 10^3/ul (4.8-10.8)
[2016-12-26 06:42] LABS: CONDITION 1; LH ANALYZER COMMENTS 1; SUSPECT 1
[2016-12-26 06:51] LABS: POTASSIUM 4.7 mmol/L (3.5-5.1)
[2016-12-26 06:53] LABS: CREATININE 0.55 mg/dl (0.44-1.00)
[2016-12-26] MEDS: MAGNESIUM OXIDE 400 MG TAB PO SCH (08:44)
[2016-12-26] MEDS: NIFEdipine (XL) 30 MG TAB PO SCH ×2 (08:44→21:07)
[2016-12-26] MEDS: METHYLPREDNISOLONE 125 MG INJ IV SCH ×2 (08:45→12:05)
[2016-12-26] MEDS: ASPIRIN 81 MG TAB PO SCH (08:46)
[2016-12-26] MEDS: SALMETEROL/FLUTICASONE 500/50 INHA INH SCH ×3 (08:46→22:04)
[2016-12-26] MEDS: INSULIN ASPART [NOVOLOG] 3 ML PEN SC SCH ×4 (08:53→21:00)
[2016-12-26] MEDS: INSULIN GLARGINE [LANtus] 3 ML PEN SC SCH (09:00)
[2016-12-26] MEDS: ENOXAPARIN 40 MG/0.4 ML SYG SC SCH (09:28)
--- NOTE | 2016-12-26 10:31 | CONS ---
Date/Time of Note Date/Time of Note DATE: 12/26/16 TIME: 10:28 Assessment/Plan Assessment/Plan Additional Assessment/Plan Assessment and recommendations; 1. Patient admitted with severe COPD exacerbation and acute bronchitis with slow but gradual clinical recovery. 2. History of chronic thrombocytopenia with stable platelet count. 3. Stable diabetes and hypertension. Next At this time continue current treatment the patient is improving although slowly. Consultation Date/Type/Reason Admit Date/Time Dec 20, 2016 at 10:24 24 HR Interval Summary Free Text/Dictation Patient condition is slowly improving the patient is appearing much more comfortable with markedly decreased shortness of breath. Complains of scant cough denies any further hemoptysis denies any sputum production. Denies any nausea, vomiting, fever, chills. Next General examination; elderly lady, awake and alert currently in no distress. Exam/Review of Systems Vital Signs Vitals Vital Signs Date Time Temp Pulse Resp B/P Pulse Ox O2 Delivery O2 Flow Rate FiO2 12/26/16 09:43 92 20 96 Nasal Cannula 3.0 12/26/16 08:08 97.6 139/74 12/25/16 17:55 32 Intake and Output 12/25/16 12/25/16 12/26/16 15:00 23:00 07:00 Intake Total 500 ml Balance 500 ml Exam HEENT examination; supple neck, no JVD, no lymphadenopathy, pharynx is clear, patient is a multiple missing teeth, he was a midsize reactive to light, extraocular movements are intact. Next Chest examination; bilateral wheezing with interval improvement. S1-S2 audible no murmurs regular rhythm. Abdomen examination; soft, nontender, no organomegaly, bowel sounds audible. Nontender. Extremity examination; no peripheral edema, pulses 1+ bilaterally. PHOTO RETOUCHER examination: no focal deficit. Results Result Diagram: 12/26/16 0525 12/26/16 0521 Results 24 hrs Laboratory Tests Test 12/25/16 11:40 12/25/16 16:44 12/25/16 20:20 12/26/16 05:21 Bedside Glucose 214 210 139 Anion Gap 14 Blood Urea Nitrogen 25 H Calcium Level 9.0 Carbon Dioxide Level 33 H Chloride Level 95 L Creatinine 0.55 Glucose Level 217 Potassium Level 4.7 Sodium Level 137 Test 12/26/16 05:25 12/26/16 07:24 Basophils # 0.0 Basophils % 0.0 Blood Morphology Comment Eosinophils # 0.0 Eosinophils % 0.0 Hematocrit 37.8 Hemoglobin 12.4 Lymphocytes # 0.6 L Lymphocytes % 10.6 L Mean Corpuscular Hemoglobin 25.8 L Mean Corpuscular Hemoglobin Concent 32.7 Mean Corpuscular Volume 79.1 L Mean Platelet Volume 11.1 H Monocytes # 0.3 Monocytes % 5.8 Neutrophils # 4.4 Neutrophils % 83.6 H Nucleated Red Blood Cells # 0.0 Nucleated Red Blood Cells % 0.0 Platelet Count 112 L Red Blood Count 4.78 Red Cell Distribution Width 14.0 White Blood Count 5.3 # Bedside Glucose 189 Medications Medications Current Medications Albuterol/ Ipratropium (Duoneb) 3 ml Q4 HHN Last administered on 12/26/16 09: 41; Admin Dose 3 ML; Start 12/20/16 at 13:00 Methylprednisolone Sodium Succinate (Solu-Medrol) 60 mg TID IV Last administered on 12/26/16 08:45; Admin Dose 60 MG; Start 12/20/16 at 13:00 Aspirin (Aspirin) 81 mg DAILY PO Last administered on 12/25/16 08:40; Admin Dose 81 MG; Start 12/21/16 at 09:00 Magnesium Oxide (Mag-Ox 400) 400 mg DAILY PO Last administered on 12/26/16 08: 44; Admin Dose 400 MG; Start 12/21/16 at 09:00 Montelukast Sodium (Singulair) 10 mg QHS PO Last administered on 12/25/16 20: 34; Admin Dose 10 MG; Start 12/20/16 at 21:00 Nifedipine (Procardia Xl) 30 mg BID PO Last administered on 12/26/16 08:44; Admin Dose 30 MG; Start 12/20/16 at 21:00 Salmeterol Xinafoate/ Fluticasone (Advair 500/50 Diskus) 1 inh BID INH Last administered on 12/26/16 08:46; Admin Dose 1 INH; Start 12/20/16 at 21:00 Pantoprazole (Protonix Tab) 40 mg DAILY@06 PO Last administered on 12/26/16 05 :24; Admin Dose 40 MG; Start 12/21/16 at 06:00 Ondansetron HCl (Zofran Inj) 4 mg Q6H PRN IV NAUSEA AND/OR VOMITING; Start at 11:00 Acetaminophen (Tylenol Tab) 650 mg Q6H PRN PO PAIN LEVEL 1-3 OR FEVER; Start at 11:00 Acetaminophen (Tylenol Supp) 650 mg Q6H PRN [place] PAIN LEVEL 1-3 OR FEVER; Start 12/20/16 at 11:00 Acetaminophen/ Hydrocodone Bitart ([place] (5/325)) 1 tab Q6H PRN PO MODERATE PAIN LEVEL 4-6; Start 12/20/16 at 11:00 Acetaminophen/ Hydrocodone Bitart ([place] (5/325)) 2 tab Q6H PRN PO SEVERE PAIN LEVEL 7-10; Start 12/20/16 at 11:00 Morphine Sulfate (morphine) 2 mg Q4H PRN IV SEVERE PAIN LEVEL 7-10; Start 12/20 at 11:00 Docusate Sodium (Colace) 100 mg Q12H PRN PO CONSTIPATION; Start 12/20/16 at 11: 00 Magnesium Hydroxide (Milk Of Mag) 30 ml DAILY PRN PO CONSTIPATION Last administered on 12/23/16t 23:10; Admin Dose 30 ML; Start 12/20/16 at 11:00 Bisacodyl (Dulcolax Supp) 10 mg DAILY PRN [place] CONSTIPATION Last administered on 12/24/16t 14:49; Admin Dose 10 MG; Start 12/20/16 at 11:00 Miscellaneous Information 1 ea NOTE XX ; Start 12/20/16 at 12:00 Glucose (Glutose) 15 gm Q15M PRN PO DECREASED GLUCOSE; Start 12/20/16 at 12:00 Glucose (Glutose) 22.5 gm Q15M PRN PO DECREASED GLUCOSE; Start 12/20/16 at 12: 00 Dextrose (D50w Syringe) 25 ml Q15M PRN IV DECREASED GLUCOSE; Start 12/20/16 at 12:00 Dextrose (D50w Syringe) 50 ml Q15M PRN IV DECREASED GLUCOSE; Start 12/20/16 at 12:00 Glucagon (Glucagen) 1 mg Q15M PRN IM DECREASED GLUCOSE; Start 12/20/16 at 12:00 Glucose (Glutose) 15 gm Q15M PRN BUCCAL DECREASED GLUCOSE; Start 12/20/16 at 12 :00 Insulin Glargine (Lantus) 10 unit QAM SC Last administered on 12/25/16 08:46; Admin Dose 10 UNIT; Start 12/21/16 at 10:00 Diagnostic Test (Pha) (Accucheck) 1 ea 02 XX Last administered on 12/22/16 01: 39; Admin Dose 1 EA; Start 12/22/16 at 02:00 Miscellaneous Information 1 ea NOTE XX ; Start 12/21/16 at 09:30 Glucose (Glutose) 15 gm Q15M PRN PO DECREASED GLUCOSE; Start 12/21/16 at 09:30 Glucose (Glutose) 22.5 gm Q15M PRN PO DECREASED GLUCOSE; Start 12/21/16 at 09: 30 Dextrose (D50w Syringe) 25 ml Q15M PRN IV DECREASED GLUCOSE; Start 12/21/16 at 09:30 Dextrose (D50w Syringe) 50 ml Q15M PRN IV DECREASED GLUCOSE; Start 12/21/16 at 09:30 Glucagon (Glucagen) 1 mg Q15M PRN IM DECREASED GLUCOSE; Start 12/21/16 at 09:30 Glucose (Glutose) 15 gm Q15M PRN BUCCAL DECREASED GLUCOSE; Start 12/21/16 at 09 :30 Levofloxacin (Levaquin) 500 mg DAILY@06 PO Last administered on 12/26/16 05:24 ; Admin Dose 500 MG; Start 12/23/16 at 16:00 Enoxaparin Sodium (Lovenox) 40 mg DAILY SC Last administered on 12/26/16 09:28 ; Admin Dose 40 MG; Start 12/25/16 at 14:30 CHU TINEO Dec 26, 2016 10:31
[2016-12-26] MEDS: metFORMIN 500 MG TAB PO SCH ×2 (12:05→17:56)
--- NOTE | 2016-12-26 14:09 | PN ---
Date/Time of Note Date/Time of Note DATE: 12/26/16 TIME: 14:07 Assessment/Plan VTE Prophylaxis VTE Prophylaxis Intervention: SCD's Lines/Catheters IV Catheter Type (from [facility], [place]): Saline Lock Urinary Cath still in place: No Assessment/Plan Assessment/Plan 1. Chronic obstructive pulmonary disease with exacerbation. better but still wheezing, decrease steroid 2. Diabetes.mellitus, A1c at 6.4. Continue on insulin regimen 3. Deep venous thrombosis prophylaxis: SCDs. 4. Gastroesophageal reflux disease prophylaxis: H2 blockers. Subjective 24 Hr Interval Summary Free Text/Dictation feels better but still wheezing Exam/Review of Systems Vital Signs Vitals Vital Signs Date Time Temp Pulse Resp B/P Pulse Ox O2 Delivery O2 Flow Rate FiO2 12/26/16 13:13 86 20 97 Nasal Cannula 3.0 12/26/16 11:46 97.8 143/68 12/25/16 17:55 32 Intake and Output 12/25/16 12/25/16 12/26/16 15:00 23:00 07:00 Intake Total 500 ml Balance 500 ml Exam Constitutional: alert, oriented, well developed Psych: nl mood/affect, no complaints Head: atraumatic, normocephalic Eyes: EOMI, PERRL, nl conjunctiva, nl lids ENMT: nl external ears & nose, nl lips & teeth, nl nasal mucosa & septum Neck: non-tender, supple Respiratory: wheezing (diffusely) Cardiovascular: nl pulses, regular rate and rhythm, No S3, No S4, No bruits, No diastolic murmur, No edema, No gallop, No irregular rhythm, No jugular venous distention (JVD), No murmurs/extra sounds, No rub, No systolic murmur Gastrointestinal: nl liver, spleen, non-tender, soft, No ascites, No bowel sounds, No distended, No firm, No hepatomegaly, No mass , No rebound or guarding, No splenomegaly, No surgical scars, No tender Musculoskeletal: nl extremities to inspection Extremities: normal pulses Neurological: EMERGENCY DEPT TECH II-XII intact, nl mental status, nl speech, nl strength Skin: nl turgor, rash or lesions Lymph: nl lymph nodes Results Result Diagram: 12/26/16 0525 12/26/16 0521 Results 24 hrs Laboratory Tests Test 12/25/16 16:44 12/25/16 20:20 12/26/16 05:21 12/26/16 05:25 Bedside Glucose 210 139 Anion Gap 14 Blood Urea Nitrogen 25 H Calcium Level 9.0 Carbon Dioxide Level 33 H Chloride Level 95 L Creatinine 0.55 Glucose Level 217 Potassium Level 4.7 Sodium Level 137 Basophils # 0.0 Basophils % 0.0 Blood Morphology Comment Eosinophils # 0.0 Eosinophils % 0.0 Hematocrit 37.8 Hemoglobin 12.4 Lymphocytes # 0.6 L Lymphocytes % 10.6 L Mean Corpuscular Hemoglobin 25.8 L Mean Corpuscular Hemoglobin Concent 32.7 Mean Corpuscular Volume 79.1 L Mean Platelet Volume 11.1 H Monocytes # 0.3 Monocytes % 5.8 Neutrophils # 4.4 Neutrophils % 83.6 H Nucleated Red Blood Cells # 0.0 Nucleated Red Blood Cells % 0.0 Platelet Count 112 L Red Blood Count 4.78 Red Cell Distribution Width 14.0 White Blood Count 5.3 # Test 12/26/16 07:24 12/26/16 11:51 Bedside Glucose 189 149 Medications Medications Current Medications Albuterol/ Ipratropium (Duoneb) 3 ml Q4 HHN Last administered on 12/26/16 13: 11; Admin Dose 3 ML; Start 12/20/16 at 13:00 Methylprednisolone Sodium Succinate (Solu-Medrol) 60 mg TID IV Last administered on 12/26/16 12:05; Admin Dose 60 MG; Start 12/20/16 at 13:00 Aspirin (Aspirin) 81 mg DAILY PO Last administered on 12/25/16 08:40; Admin Dose 81 MG; Start 12/21/16 at 09:00 Magnesium Oxide (Mag-Ox 400) 400 mg DAILY PO Last administered on 12/26/16 08: 44; Admin Dose 400 MG; Start 12/21/16 at 09:00 Montelukast Sodium (Singulair) 10 mg QHS PO Last administered on 12/25/16 20: 34; Admin Dose 10 MG; Start 12/20/16 at 21:00 Nifedipine (Procardia Xl) 30 mg BID PO Last administered on 12/26/16 08:44; Admin Dose 30 MG; Start 12/20/16 at 21:00 Salmeterol Xinafoate/ Fluticasone (Advair 500/50 Diskus) 1 inh BID INH Last administered on 12/26/16 08:46; Admin Dose 1 INH; Start 12/20/16 at 21:00 Pantoprazole (Protonix Tab) 40 mg DAILY@06 PO Last administered on 12/26/16 05 :24; Admin Dose 40 MG; Start 12/21/16 at 06:00 Ondansetron HCl (Zofran Inj) 4 mg Q6H PRN IV NAUSEA AND/OR VOMITING; Start at 11:00 Acetaminophen (Tylenol Tab) 650 mg Q6H PRN PO PAIN LEVEL 1-3 OR FEVER; Start at 11:00 Acetaminophen (Tylenol Supp) 650 mg Q6H PRN MS PAIN LEVEL 1-3 OR FEVER; Start 12/20/16 at 11:00 Acetaminophen/ Hydrocodone Bitart ([place] (5/325)) 1 tab Q6H PRN PO MODERATE PAIN LEVEL 4-6; Start 12/20/16 at 11:00 Acetaminophen/ Hydrocodone Bitart ([place] (5/325)) 2 tab Q6H PRN PO SEVERE PAIN LEVEL 7-10; Start 12/20/16 at 11:00 Morphine Sulfate (morphine) 2 mg Q4H PRN IV SEVERE PAIN LEVEL 7-10; Start 12/20 at 11:00 Docusate Sodium (Colace) 100 mg Q12H PRN PO CONSTIPATION; Start 12/20/16 at 11: 00 Magnesium Hydroxide (Milk Of Mag) 30 ml DAILY PRN PO CONSTIPATION Last administered on 12/23/16 23:10; Admin Dose 30 ML; Start 12/20/16 at 11:00 Bisacodyl (Dulcolax Supp) 10 mg DAILY PRN [place] CONSTIPATION Last administered on 12/24/16 14:49; Admin Dose 10 MG; Start 12/20/16 at 11:00 Miscellaneous Information 1 ea NOTE XX ; Start 12/20/16 at 12:00 Glucose (Glutose) 15 gm Q15M PRN PO DECREASED GLUCOSE; Start 12/20/16 at 12:00 Glucose (Glutose) 22.5 gm Q15M PRN PO DECREASED GLUCOSE; Start 12/20/16 at 12: 00 Dextrose (D50w Syringe) 25 ml Q15M PRN IV DECREASED GLUCOSE; Start 12/20/16 at 12:00 Dextrose (D50w Syringe) 50 ml Q15M PRN IV DECREASED GLUCOSE; Start 12/20/16 at 12:00 Glucagon (Glucagen) 1 mg Q15M PRN IM DECREASED GLUCOSE; Start 12/20/16 at 12:00 Glucose (Glutose) 15 gm Q15M PRN BUCCAL DECREASED GLUCOSE; Start 12/20/16 at 12 :00 Insulin Glargine (Lantus) 10 unit QAM SC Last administered on 12/25/16 08:46; Admin Dose 10 UNIT; Start 12/21/16 at 10:00 Diagnostic Test (Pha) (Accucheck) 1 ea 02 XX Last administered on 12/22/16 01: 39; Admin Dose 1 EA; Start 12/22/16 at 02:00 Miscellaneous Information 1 ea NOTE XX ; Start 12/21/16 at 09:30 Glucose (Glutose) 15 gm Q15M PRN PO DECREASED GLUCOSE; Start 12/21/16 at 09:30 Glucose (Glutose) 22.5 gm Q15M PRN PO DECREASED GLUCOSE; Start 12/21/16 at 09: 30 Dextrose (D50w Syringe) 25 ml Q15M PRN IV DECREASED GLUCOSE; Start 12/21/16 at 09:30 Dextrose (D50w Syringe) 50 ml Q15M PRN IV DECREASED GLUCOSE; Start 12/21/16 at 09:30 Glucagon (Glucagen) 1 mg Q15M PRN IM DECREASED GLUCOSE; Start 12/21/16 at 09:30 Glucose (Glutose) 15 gm Q15M PRN BUCCAL DECREASED GLUCOSE; Start 12/21/16 at 09 :30 Levofloxacin (Levaquin) 500 mg DAILY@06 PO Last administered on 12/26/16 05:24 ; Admin Dose 500 MG; Start 12/23/16 at 16:00 Enoxaparin Sodium (Lovenox) 40 mg DAILY SC Last administered on 12/26/16 09:28 ; Admin Dose 40 MG; Start 12/25/16 at 14:30 STACEY EID MD Dec 26, 2016 14:09
[2016-12-26] MEDS: MONTELUKAST 10 MG TAB PO SCH (21:06)
[2016-12-26] MEDS: METHYLPREDNISOLONE 40 MG INJ IV SCH (21:08)
[2016-12-27] MEDS: ALBUTEROL/IPRATROPIUM (NEB) 3 ML AMP HHN SCH ×6 (01:26→20:15)
[2016-12-27] MEDS: ACCUCHECK XX SCH (02:00)
[2016-12-27] MEDS: PANTOPRAZOLE (EC) 40 MG TAB PO SCH (05:43)
[2016-12-27] MEDS: LEVOFLOXACIN 500 MG TAB PO SCH (05:43)
[2016-12-27 07:48] VITALS: BP 130/64; PULSE 89; RESP 18
[2016-12-27] MEDS: SALMETEROL/FLUTICASONE 500/50 INHA INH SCH ×2 (08:54→20:46)
[2016-12-27] MEDS: INSULIN ASPART [NOVOLOG] 3 ML PEN SC SCH ×4 (08:57→20:47)
--- NOTE | 2016-12-27 09:03 | CONS ---
Date/Time of Note Date/Time of Note DATE: 12/27/16 TIME: 09:01 Assessment/Plan Assessment/Plan Additional Assessment/Plan Assessment and recommendation; 1. Patient admitted with severe COPD exacerbation with acute bronchitis with slow but gradual clinical improvement. Next Continue current treatment for now. Consultation Date/Type/Reason Admit Date/Time Dec 20, 2016 at 10:24 24 HR Interval Summary Free Text/Dictation Patient will be transferred to the medical surgical unit and out of telemetry. According to her shortness of breath is gradually but slowly improving. Denies any further hemoptysis. Any sputum production. She complains of mild wheezing. Denies any chest pain. General examination; elderly lady awake alert currently in no distress. No coughing episodes observed. Exam/Review of Systems Vital Signs Vitals Vital Signs Date Time Temp Pulse Resp B/P Pulse Ox O2 Delivery O2 Flow Rate FiO2 12/27/16 08:24 3.0 12/27/16 08:24 88 18 95 Nasal Cannula 12/27/16 07:48 98.1 130/64 12/25/16 17:55 32 Intake and Output 12/26/16 12/26/16 12/27/16 15:00 23:00 07:00 Intake Total 600 ml 1400 ml Balance 600 ml 1400 ml Exam HEENT examination; supple neck, no JVD. No lymphadenopathy. Patient is mostly edentulous. Pupils are midsize reactive to light. No thyromegaly. Chest examination; improved wheezing bilaterally S1-S2 audible no murmurs regular rhythm. Abdomen examination; soft, nontender, no organomegaly. Bowel sounds audible. Extremity examination; no peripheral edema. Pulses 1+ bilaterally. ALLERGIST/PEDIATRIC PULMONOLOGIST examination; no focal deficit. Results Result Diagram: 12/26/16 0525 12/26/16 0521 Results 24 hrs Laboratory Tests Test 12/26/16 11:51 12/26/16 16:36 12/26/16 21:03 12/27/16 07:32 Bedside Glucose 149 175 118 207 Medications Medications Current Medications Albuterol/ Ipratropium (Duoneb) 3 ml Q4 HHN Last administered on 12/27/16 08: 24; Admin Dose 3 ML; Start 12/20/16 at 13:00 Aspirin (Aspirin) 81 mg DAILY PO Last administered on 12/25/16 08:40; Admin Dose 81 MG; Start 12/21/16 at 09:00 Magnesium Oxide (Mag-Ox 400) 400 mg DAILY PO Last administered on 12/26/16 08: 44; Admin Dose 400 MG; Start 12/21/16 at 09:00 Montelukast Sodium (Singulair) 10 mg QHS PO Last administered on 12/26/16 21: 06; Admin Dose 10 MG; Start 12/20/16 at 21:00 Nifedipine (Procardia Xl) 30 mg BID PO Last administered on 12/26/16 21:07; Admin Dose 30 MG; Start 12/20/16 at 21:00 Salmeterol Xinafoate/ Fluticasone (Advair 500/50 Diskus) 1 inh BID INH Last administered on 12/26/16 22:04; Admin Dose 1 INH; Start 12/20/16 at 21:00 Pantoprazole (Protonix Tab) 40 mg DAILY@06 PO Last administered on 12/27/16 05 :43; Admin Dose 40 MG; Start 12/21/16 at 06:00 Ondansetron HCl (Zofran Inj) 4 mg Q6H PRN IV NAUSEA AND/OR VOMITING; Start at 11:00 Acetaminophen (Tylenol Tab) 650 mg Q6H PRN PO PAIN LEVEL 1-3 OR FEVER; Start at 11:00 Acetaminophen (Tylenol Supp) 650 mg Q6H PRN [place] PAIN LEVEL 1-3 OR FEVER; Start 12/20/16 at 11:00 Acetaminophen/ Hydrocodone Bitart ([place] (5/325)) 1 tab Q6H PRN PO MODERATE PAIN LEVEL 4-6; Start 12/20/16 at 11:00 Acetaminophen/ Hydrocodone Bitart ([place] (5/325)) 2 tab Q6H PRN PO SEVERE PAIN LEVEL 7-10; Start 12/20/16 at 11:00 Morphine Sulfate (morphine) 2 mg Q4H PRN IV SEVERE PAIN LEVEL 7-10; Start 12/20 at 11:00 Docusate Sodium (Colace) 100 mg Q12H PRN PO CONSTIPATION; Start 12/20/16 at 11: 00 Magnesium Hydroxide (Milk Of Mag) 30 ml DAILY PRN PO CONSTIPATION Last administered on 12/23/16 23:10; Admin Dose 30 ML; Start 12/20/16 at 11:00 Bisacodyl (Dulcolax Supp) 10 mg DAILY PRN [place] CONSTIPATION Last administered on 12/24/16 14:49; Admin Dose 10 MG; Start 12/20/16 at 11:00 Miscellaneous Information 1 ea NOTE XX ; Start 12/20/16 at 12:00 Glucose (Glutose) 15 gm Q15M PRN PO DECREASED GLUCOSE; Start 12/20/16 at 12:00 Glucose (Glutose) 22.5 gm Q15M PRN PO DECREASED GLUCOSE; Start 12/20/16 at 12: 00 Dextrose (D50w Syringe) 25 ml Q15M PRN IV DECREASED GLUCOSE; Start 12/20/16 at 12:00 Dextrose (D50w Syringe) 50 ml Q15M PRN IV DECREASED GLUCOSE; Start 12/20/16 at 12:00 Glucagon (Glucagen) 1 mg Q15M PRN IM DECREASED GLUCOSE; Start 12/20/16 at 12:00 Glucose (Glutose) 15 gm Q15M PRN BUCCAL DECREASED GLUCOSE; Start 12/20/16 at 12 :00 Insulin Glargine (Lantus) 10 unit QAM SC Last administered on 12/25/16 08:46; Admin Dose 10 UNIT; Start 12/21/16 at 10:00 Diagnostic Test (Pha) (Accucheck) 1 ea 02 XX Last administered on 12/22/16 01: 39; Admin Dose 1 EA; Start 12/22/16 at 02:00 Miscellaneous Information 1 ea NOTE XX ; Start 12/21/16 at 09:30 Glucose (Glutose) 15 gm Q15M PRN PO DECREASED GLUCOSE; Start 12/21/16 at 09:30 Glucose (Glutose) 22.5 gm Q15M PRN PO DECREASED GLUCOSE; Start 12/21/16 at 09: 30 Dextrose (D50w Syringe) 25 ml Q15M PRN IV DECREASED GLUCOSE; Start 12/21/16 at 09:30 Dextrose (D50w Syringe) 50 ml Q15M PRN IV DECREASED GLUCOSE; Start 12/21/16 at 09:30 Glucagon (Glucagen) 1 mg Q15M PRN IM DECREASED GLUCOSE; Start 12/21/16 at 09:30 Glucose (Glutose) 15 gm Q15M PRN BUCCAL DECREASED GLUCOSE; Start 12/21/16 at 09 :30 Levofloxacin (Levaquin) 500 mg DAILY@06 PO Last administered on 12/27/16 05:43 ; Admin Dose 500 MG; Start 12/23/16 at 16:00 Enoxaparin Sodium (Lovenox) 40 mg DAILY SC Last administered on 12/26/16 09:28 ; Admin Dose 40 MG; Start 12/25/16 at 14:30 Methylprednisolone Sodium Succinate (Solu-Medrol) 40 mg TID IV Last administered on 12/26/16 21:08; Admin Dose 40 MG; Start 12/26/16 at 21:00 CHU TINEO Dec 27, 2016 09:03
[2016-12-27] MEDS: INSULIN GLARGINE [LANtus] 3 ML PEN SC SCH (09:05)
[2016-12-27] MEDS: METHYLPREDNISOLONE 40 MG INJ IV SCH ×3 (09:11→20:46)
[2016-12-27] MEDS: ASPIRIN 81 MG TAB PO SCH (09:11)
[2016-12-27] MEDS: MAGNESIUM OXIDE 400 MG TAB PO SCH (09:11)
[2016-12-27] MEDS: NIFEdipine (XL) 30 MG TAB PO SCH ×2 (09:12→20:46)
[2016-12-27] MEDS: ENOXAPARIN 40 MG/0.4 ML SYG SC SCH (09:19)
[2016-12-27] MEDS: metFORMIN 500 MG TAB PO SCH ×2 (12:15→17:48)
--- NOTE | 2016-12-27 13:38 | PN ---
Date/Time of Note Date/Time of Note DATE: 12/27/16 TIME: 13:36 Assessment/Plan VTE Prophylaxis VTE Prophylaxis Intervention: SCD's Lines/Catheters [facility] Urinary Cath still in place: No Assessment/Plan Assessment/Plan 1. Chronic obstructive pulmonary disease with exacerbation. better but still wheezing, decrease steroid, home tomorrow if stable 2. Diabetes.mellitus, A1c at 6.4. Continue on insulin regimen 3. Deep venous thrombosis prophylaxis: SCDs. 4. Gastroesophageal reflux disease prophylaxis: H2 blockers. Subjective 24 Hr Interval Summary Free Text/Dictation less cough and shortness of breath. No fever or chills Exam/Review of Systems Vital Signs Vitals Vital Signs Date Time Temp Pulse Resp B/P Pulse Ox O2 Delivery O2 Flow Rate FiO2 12/27/16 13:28 80 16 96 Nasal Cannula 3.0 12/27/16 07:48 98.1 130/64 12/25/16 17:55 32 Intake and Output 12/26/16 12/26/16 12/27/16 15:00 23:00 07:00 Intake Total 600 ml 1400 ml Balance 600 ml 1400 ml Exam Constitutional: alert, oriented, well developed Psych: nl mood/affect, no complaints Head: atraumatic, normocephalic Eyes: EOMI, PERRL, nl conjunctiva, nl lids, nl sclera ENMT: mucosa pink and moist, nl external ears & nose, nl lips & teeth, nl nasal mucosa & septum Neck: non-tender, supple Respiratory: other (rhonchi), wheezing Cardiovascular: nl pulses, regular rate and rhythm, No S3, No S4, No bruits, No diastolic murmur, No edema, No gallop, No irregular rhythm, No jugular venous distention (JVD), No murmurs/extra sounds, No rub, No systolic murmur Gastrointestinal: nl liver, spleen, non-tender, soft, No ascites, No bowel sounds, No distended, No firm, No hepatomegaly, No mass , No rebound or guarding, No splenomegaly, No surgical scars, No tender Musculoskeletal: nl extremities to inspection Neurological: CRIMINOLOGY TEACHER II-XII intact, nl mental status, nl speech, nl strength Skin: nl turgor, rash or lesions Lymph: nl lymph nodes Results Result Diagram: 12/26/16 0525 12/26/16 0521 Results 24 hrs Laboratory Tests Test 12/26/16 16:36 12/26/16 21:03 12/27/16 07:32 12/27/16 11:48 Bedside Glucose 175 118 207 157 Medications Medications Current Medications Albuterol/ Ipratropium (Duoneb) 3 ml Q4 HHN Last administered on 12/27/16 13: 28; Admin Dose 3 ML; Start 12/20/16 at 13:00 Aspirin (Aspirin) 81 mg DAILY PO Last administered on 12/27/16 09:11; Admin Dose 81 MG; Start 12/21/16 at 09:00 Magnesium Oxide (Mag-Ox 400) 400 mg DAILY PO Last administered on 12/27/16 09: 11; Admin Dose 400 MG; Start 12/21/16 at 09:00 Montelukast Sodium (Singulair) 10 mg QHS PO Last administered on 12/26/16 21: 06; Admin Dose 10 MG; Start 12/20/16 at 21:00 Nifedipine (Procardia Xl) 30 mg BID PO Last administered on 12/27/16 09:12; Admin Dose 30 MG; Start 12/20/16 at 21:00 Salmeterol Xinafoate/ Fluticasone (Advair 500/50 Diskus) 1 inh BID INH Last administered on 12/27/16 08:54; Admin Dose 1 INH; Start 12/20/16 at 21:00 Pantoprazole (Protonix Tab) 40 mg DAILY@06 PO Last administered on 12/27/16 05 :43; Admin Dose 40 MG; Start 12/21/16 at 06:00 Ondansetron HCl (Zofran Inj) 4 mg Q6H PRN IV NAUSEA AND/OR VOMITING; Start at 11:00 Acetaminophen (Tylenol Tab) 650 mg Q6H PRN PO PAIN LEVEL 1-3 OR FEVER; Start at 11:00 Acetaminophen (Tylenol Supp) 650 mg Q6H PRN [place] PAIN LEVEL 1-3 OR FEVER; Start 12/20/16 at 11:00 Acetaminophen/ Hydrocodone Bitart ([place] (5/325)) 1 tab Q6H PRN PO MODERATE PAIN LEVEL 4-6; Start 12/20/16 at 11:00 Acetaminophen/ Hydrocodone Bitart ([place] (5/325)) 2 tab Q6H PRN PO SEVERE PAIN LEVEL 7-10; Start 12/20/16 at 11:00 Morphine Sulfate (morphine) 2 mg Q4H PRN IV SEVERE PAIN LEVEL 7-10; Start 12/20 at 11:00 Docusate Sodium (Colace) 100 mg Q12H PRN PO CONSTIPATION; Start 12/20/16 at 11: 00 Magnesium Hydroxide (Milk Of Mag) 30 ml DAILY PRN PO CONSTIPATION Last administered on 12/23/16 23:10; Admin Dose 30 ML; Start 12/20/16 at 11:00 Bisacodyl (Dulcolax Supp) 10 mg DAILY PRN [place] CONSTIPATION Last administered on 12/24/16 14:49; Admin Dose 10 MG; Start 12/20/16 at 11:00 Insulin Glargine (Lantus) 10 unit QAM SC Last administered on 12/27/16 09:05; Admin Dose 10 UNIT; Start 12/21/16 at 10:00 Diagnostic Test (Pha) (Accucheck) 1 ea 02 XX Last administered on 12/22/16 01: 39; Admin Dose 1 EA; Start 12/22/16 at 02:00 Miscellaneous Information 1 ea NOTE XX ; Start 12/21/16 at 09:30 Glucose (Glutose) 15 gm Q15M PRN PO DECREASED GLUCOSE; Start 12/21/16 at 09:30 Glucose (Glutose) 22.5 gm Q15M PRN PO DECREASED GLUCOSE; Start 12/21/16 at 09: 30 Dextrose (D50w Syringe) 25 ml Q15M PRN IV DECREASED GLUCOSE; Start 12/21/16 at 09:30 Dextrose (D50w Syringe) 50 ml Q15M PRN IV DECREASED GLUCOSE; Start 12/21/16 at 09:30 Glucagon (Glucagen) 1 mg Q15M PRN IM DECREASED GLUCOSE; Start 12/21/16 at 09:30 Glucose (Glutose) 15 gm Q15M PRN BUCCAL DECREASED GLUCOSE; Start 12/21/16 at 09 :30 Levofloxacin (Levaquin) 500 mg DAILY@06 PO Last administered on 12/27/16 05:43 ; Admin Dose 500 MG; Start 12/23/16 at 16:00 Enoxaparin Sodium (Lovenox) 40 mg DAILY SC Last administered on 12/27/16 09:19 ; Admin Dose 40 MG; Start 12/25/16 at 14:30 Methylprednisolone Sodium Succinate (Solu-Medrol) 40 mg TID IV Last administered on 12/27/16 12:15; Admin Dose 40 MG; Start 12/26/16 at 21:00 STACEY EID MD Dec 27, 2016 13:38
[2016-12-27 20:29] VITALS: BP 186/74; RESP 18
[2016-12-27] MEDS: MONTELUKAST 10 MG TAB PO SCH (20:46)
[2016-12-28] MEDS: ALBUTEROL/IPRATROPIUM (NEB) 3 ML AMP HHN SCH ×6 (01:44→20:38)
[2016-12-28] MEDS: ACCUCHECK XX SCH (02:00)
[2016-12-28] MEDS: LEVOFLOXACIN 500 MG TAB PO SCH (05:44)
[2016-12-28] MEDS: PANTOPRAZOLE (EC) 40 MG TAB PO SCH (05:44)
[2016-12-28 07:19] VITALS: BP 131/60; RESP 18
[2016-12-28] MEDS: INSULIN ASPART [NOVOLOG] 3 ML PEN SC SCH ×4 (08:11→20:34)
[2016-12-28] MEDS: MAGNESIUM OXIDE 400 MG TAB PO SCH (08:24)
[2016-12-28] MEDS: NIFEdipine (XL) 30 MG TAB PO SCH ×2 (08:25→20:26)
[2016-12-28] MEDS: ASPIRIN 81 MG TAB PO SCH ×2 (08:25→09:00)
[2016-12-28] MEDS: SALMETEROL/FLUTICASONE 500/50 INHA INH SCH ×2 (08:26→23:07)
[2016-12-28] MEDS: METHYLPREDNISOLONE 40 MG INJ IV SCH ×3 (08:26→20:22)
[2016-12-28] MEDS: MAGNESIUM HYDROXIDE 30ML CUP PO PRN (08:45)
[2016-12-28] MEDS: ENOXAPARIN 40 MG/0.4 ML SYG SC SCH (08:48)
[2016-12-28] MEDS: INSULIN GLARGINE [LANtus] 3 ML PEN SC SCH (08:48)
--- NOTE | 2016-12-28 10:56 | PN ---
Date/Time of Note Date/Time of Note DATE: 12/28/16 TIME: 10:47 Assessment/Plan VTE Prophylaxis VTE Prophylaxis Intervention: LMWH Lines/Catheters [facility] Urinary Cath still in place: No Assessment/Plan Assessment/Plan 66 yo F with Severe Chronic obstructive pulmonary disease with exacerbation. Acute bronchitis with acromobacter Hemoptysis 2/2 above: resolved Diabetes.mellitus, A1c at 6.4.: controlled Chronic Hep C Liver cirrhosis with thrombocytopenia Chronic resp failure on home O2 PLAN: Continue Pulmonary regimen Continue hypoglycemic regimen Continue abx Plan for D/c once cleared by Pulm Continue supportive care. Deep venous thrombosis prophylaxis: SCDs / Lovenox Gastroesophageal reflux disease prophylaxis: H2 blockers. Subjective 24 Hr Interval Summary Free Text/Dictation Patient seen and examined. still coughing and wheezing Exam/Review of Systems Vital Signs Vitals Vital Signs Date Time Temp Pulse Resp B/P Pulse Ox O2 Delivery O2 Flow Rate FiO2 12/28/16 09:20 97 2.0 12/28/16 09:20 86 20 Nasal Cannula 12/28/16 07:19 97.8 131/60 12/25/16 17:55 32 Intake and Output 12/27/16 12/27/16 12/28/16 15:00 23:00 07:00 Intake Total 200 ml Balance 200 ml Exam Constitutional: alert, obese, oriented Head: normocephalic Eyes: PERRL Neck: supple Respiratory: diminished breath sounds, wheezing (++) Cardiovascular: regular rate and rhythm Gastrointestinal: bowel sounds, non-tender, soft Extremities: No edema Neurological: nl mental status Results Result Diagram: 12/26/16 0525 12/26/16 0521 Results 24 hrs Laboratory Tests Test 12/27/16 11:48 12/27/16 16:33 12/27/16 20:43 12/28/16 07:50 Bedside Glucose 157 164 144 130 Medications Medications Current Medications Albuterol/ Ipratropium (Duoneb) 3 ml Q4 HHN Last administered on 12/28/16 09: 17; Admin Dose 3 ML; Start 12/20/16 at 13:00 Aspirin (Aspirin) 81 mg DAILY PO Last administered on 12/28/16 08:25; Admin Dose 81 MG; Start 12/21/16 at 09:00 Magnesium Oxide (Mag-Ox 400) 400 mg DAILY PO Last administered on 12/28/16 08: 24; Admin Dose 400 MG; Start 12/21/16 at 09:00 Montelukast Sodium (Singulair) 10 mg QHS PO Last administered on 12/27/16 20: 46; Admin Dose 10 MG; Start 12/20/16 at 21:00 Nifedipine (Procardia Xl) 30 mg BID PO Last administered on 12/28/16 08:25; Admin Dose 30 MG; Start 12/20/16 at 21:00 Salmeterol Xinafoate/ Fluticasone (Advair 500/50 Diskus) 1 inh BID INH Last administered on 12/28/16 08:26; Admin Dose 1 INH; Start 12/20/16 at 21:00 Pantoprazole (Protonix Tab) 40 mg DAILY@06 PO Last administered on 12/28/16 05 :44; Admin Dose 40 MG; Start 12/21/16 at 06:00 Ondansetron HCl (Zofran Inj) 4 mg Q6H PRN IV NAUSEA AND/OR VOMITING; Start at 11:00 Acetaminophen (Tylenol Tab) 650 mg Q6H PRN PO PAIN LEVEL 1-3 OR FEVER; Start at 11:00 Acetaminophen (Tylenol Supp) 650 mg Q6H PRN [place] PAIN LEVEL 1-3 OR FEVER; Start 12/20/16 at 11:00 Acetaminophen/ Hydrocodone Bitart ([place] (5/325)) 1 tab Q6H PRN PO MODERATE PAIN LEVEL 4-6; Start 12/20/16 at 11:00 Acetaminophen/ Hydrocodone Bitart ([place] (5/325)) 2 tab Q6H PRN PO SEVERE PAIN LEVEL 7-10; Start 12/20/16 at 11:00 Morphine Sulfate (morphine) 2 mg Q4H PRN IV SEVERE PAIN LEVEL 7-10; Start 12/20 at 11:00 Docusate Sodium (Colace) 100 mg Q12H PRN PO CONSTIPATION Last administered on 08:45; Admin Dose 100 MG; Start 12/20/16 at 11:00 Magnesium Hydroxide (Milk Of Mag) 30 ml DAILY PRN PO CONSTIPATION Last administered on 12/28/16 08:45; Admin Dose 30 ML; Start 12/20/16 at 11:00 Bisacodyl (Dulcolax Supp) 10 mg DAILY PRN [place] CONSTIPATION Last administered on 12/24/16 14:49; Admin Dose 10 MG; Start 12/20/16 at 11:00 Insulin Glargine (Lantus) 10 unit QAM SC Last administered on 12/28/16 08:48; Admin Dose 10 UNIT; Start 12/21/16 at 10:00 Diagnostic Test (Pha) (Accucheck) 1 ea 02 XX Last administered on 12/22/16 01: 39; Admin Dose 1 EA; Start 12/22/16 at 02:00 Miscellaneous Information 1 ea NOTE XX ; Start 12/21/16 at 09:30 Glucose (Glutose) 15 gm Q15M PRN PO DECREASED GLUCOSE; Start 12/21/16 at 09:30 Glucose (Glutose) 22.5 gm Q15M PRN PO DECREASED GLUCOSE; Start 12/21/16 at 09: 30 Dextrose (D50w Syringe) 25 ml Q15M PRN IV DECREASED GLUCOSE; Start 12/21/16 at 09:30 Dextrose (D50w Syringe) 50 ml Q15M PRN IV DECREASED GLUCOSE; Start 12/21/16 at 09:30 Glucagon (Glucagen) 1 mg Q15M PRN IM DECREASED GLUCOSE; Start 12/21/16 at 09:30 Glucose (Glutose) 15 gm Q15M PRN BUCCAL DECREASED GLUCOSE; Start 12/21/16 at 09 :30 Levofloxacin (Levaquin) 500 mg DAILY@06 PO Last administered on 12/28/16 05:44 ; Admin Dose 500 MG; Start 12/23/16 at 16:00 Enoxaparin Sodium (Lovenox) 40 mg DAILY SC Last administered on 12/28/16 08:48 ; Admin Dose 40 MG; Start 12/25/16 at 14:30 Methylprednisolone Sodium Succinate (Solu-Medrol) 20 mg TID IV Last administered on 12/28/16 08:26; Admin Dose 20 MG; Start 12/27/16 at 21:00 Procedures Procedures PROCEDURE: XR Chest. CLINICAL INDICATION: Shortness of breath. TECHNIQUE: Single frontal view. COMPARISON: 12/20/2016. FINDINGS: There is extensive bronchiectasis bilaterally in the upper and midlung zones. The lungs are otherwise clear. The heart size is normal. There is calcification in the aorta consistent with atherosclerosis. There is no pleural effusion. There is no pneumothorax. IMPRESSION: 1. No change from 12/20/2016. RPTAT: QQ .Jm Sen MD, Date Time Electronically viewed and signed by .Jm Sen MD, MD on 12/22/2016 10:51 .NEGRO PAVON Dec 28, 2016 10:56
[2016-12-28] MEDS: metFORMIN 500 MG TAB PO SCH ×2 (12:27→17:41)
--- NOTE | 2016-12-28 17:25 | CONS ---
Date/Time of Note Date/Time of Note DATE: 12/28/16 TIME: 17:23 Consult Date/Type/Reason Admit Date/Time Dec 20, 2016 at 10:24 Initial Consult Date Pulm Subjective No events. Sleeping now. Objective Vital Signs Date Time Temp Pulse Resp B/P Pulse Ox O2 Delivery O2 Flow Rate FiO2 12/28/16 16:09 95 24 95 Nasal Cannula 2.0 12/28/16 07:19 97.8 131/60 12/25/16 17:55 32 Intake and Output 12/27/16 12/27/16 12/28/16 15:00 23:00 07:00 Intake Total 200 ml Balance 200 ml HEENT: Neck supple; no JVD; no LAD CVS: RRR, S1 and S2 CHEST: rhonchi upper lung zones ABD: Soft, NT, + BS EXT: No c/c/e Results/Medications Result Diagram: 12/26/16 0525 12/26/16 0521 Results 24 hrs Laboratory Tests Test 12/27/16 20:43 12/28/16 07:50 12/28/16 11:47 Bedside Glucose 144 130 222 H Medications Current Medications Albuterol/ Ipratropium (Duoneb) 3 ml Q4 HHN Last administered on 12/28/16 16: 08; Admin Dose 3 ML; Start 12/20/16 at 13:00 Aspirin (Aspirin) 81 mg DAILY PO Last administered on 12/28/16 08:25; Admin Dose 81 MG; Start 12/21/16 at 09:00 Magnesium Oxide (Mag-Ox 400) 400 mg DAILY PO Last administered on 12/28/16 08: 24; Admin Dose 400 MG; Start 12/21/16 at 09:00 Montelukast Sodium (Singulair) 10 mg QHS PO Last administered on 12/27/16 20: 46; Admin Dose 10 MG; Start 12/20/16 at 21:00 Nifedipine (Procardia Xl) 30 mg BID PO Last administered on 12/28/16 08:25; Admin Dose 30 MG; Start 12/20/16 at 21:00 Salmeterol Xinafoate/ Fluticasone (Advair 500/50 Diskus) 1 inh BID INH Last administered on 12/28/16 08:26; Admin Dose 1 INH; Start 12/20/16 at 21:00 Pantoprazole (Protonix Tab) 40 mg DAILY@06 PO Last administered on 12/28/16 05 :44; Admin Dose 40 MG; Start 12/21/16 at 06:00 Ondansetron HCl (Zofran Inj) 4 mg Q6H PRN IV NAUSEA AND/OR VOMITING; Start at 11:00 Acetaminophen (Tylenol Tab) 650 mg Q6H PRN PO PAIN LEVEL 1-3 OR FEVER; Start at 11:00 Acetaminophen (Tylenol Supp) 650 mg Q6H PRN [place] PAIN LEVEL 1-3 OR FEVER; Start 12/20/16 at 11:00 Acetaminophen/ Hydrocodone Bitart ([place] (5/325)) 1 tab Q6H PRN PO MODERATE PAIN LEVEL 4-6; Start 12/20/16 at 11:00 Acetaminophen/ Hydrocodone Bitart ([place] (5/325)) 2 tab Q6H PRN PO SEVERE PAIN LEVEL 7-10; Start 12/20/16 at 11:00 Morphine Sulfate (morphine) 2 mg Q4H PRN IV SEVERE PAIN LEVEL 7-10; Start 12/20 at 11:00 Docusate Sodium (Colace) 100 mg Q12H PRN PO CONSTIPATION Last administered on 08:45; Admin Dose 100 MG; Start 12/20/16 at 11:00 Magnesium Hydroxide (Milk Of Mag) 30 ml DAILY PRN PO CONSTIPATION Last administered on 12/28/16 08:45; Admin Dose 30 ML; Start 12/20/16 at 11:00 Bisacodyl (Dulcolax Supp) 10 mg DAILY PRN [place] CONSTIPATION Last administered on 12/24/16 14:49; Admin Dose 10 MG; Start 12/20/16 at 11:00 Insulin Glargine (Lantus) 10 unit QAM SC Last administered on 12/28/16 08:48; Admin Dose 10 UNIT; Start 12/21/16 at 10:00 Diagnostic Test (Pha) (Accucheck) 1 ea 02 XX Last administered on 12/22/16 01: 39; Admin Dose 1 EA; Start 12/22/16 at 02:00 Miscellaneous Information 1 ea NOTE XX ; Start 12/21/16 at 09:30 Glucose (Glutose) 15 gm Q15M PRN PO DECREASED GLUCOSE; Start 12/21/16 at 09:30 Glucose (Glutose) 22.5 gm Q15M PRN PO DECREASED GLUCOSE; Start 12/21/16 at 09: 30 Dextrose (D50w Syringe) 25 ml Q15M PRN IV DECREASED GLUCOSE; Start 12/21/16 at 09:30 Dextrose (D50w Syringe) 50 ml Q15M PRN IV DECREASED GLUCOSE; Start 12/21/16 at 09:30 Glucagon (Glucagen) 1 mg Q15M PRN IM DECREASED GLUCOSE; Start 12/21/16 at 09:30 Glucose (Glutose) 15 gm Q15M PRN BUCCAL DECREASED GLUCOSE; Start 12/21/16 at 09 :30 Levofloxacin (Levaquin) 500 mg DAILY@06 PO Last administered on 12/28/16 05:44 ; Admin Dose 500 MG; Start 12/23/16 at 16:00 Enoxaparin Sodium (Lovenox) 40 mg DAILY SC Last administered on 12/28/16 08:48 ; Admin Dose 40 MG; Start 12/25/16 at 14:30 Methylprednisolone Sodium Succinate (Solu-Medrol) 20 mg TID IV Last administered on 12/28/16 12:25; Admin Dose 20 MG; Start 12/27/16 at 21:00 Assessment/Plan Additional Assessment/Plan IMPRESSION: 1. 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 A less likely consideration would be cystic sarcoidosis. The airway structural abnormalities will predispose her to recurrent bacterial infections RECS: 1. Transition to prednisone with taper. 2. Continue BD's/CPT 3. Flutter valve 4. Okay for d/c after home oxygen JENNIFER Leo MD Dec 28, 2016 17:25
[2016-12-28 20:00] VITALS: BP 146/65; PULSE 88; RESP 21
[2016-12-28] MEDS: MONTELUKAST 10 MG TAB PO SCH (20:22)
[2016-12-29] MEDS: ALBUTEROL/IPRATROPIUM (NEB) 3 ML AMP HHN SCH ×6 (00:17→20:05)
[2016-12-29] MEDS: ACCUCHECK XX SCH (01:59)
[2016-12-29] MEDS: PANTOPRAZOLE (EC) 40 MG TAB PO SCH (05:50)
[2016-12-29] MEDS: LEVOFLOXACIN 500 MG TAB PO SCH (05:50)
[2016-12-29 07:17] VITALS: BP 133/101; RESP 18
[2016-12-29] MEDS: METHYLPREDNISOLONE 40 MG INJ IV SCH ×2 (08:59→13:05)
[2016-12-29] MEDS: ASPIRIN 81 MG TAB PO SCH (09:00)
[2016-12-29] MEDS: MAGNESIUM OXIDE 400 MG TAB PO SCH (09:00)
[2016-12-29] MEDS: NIFEdipine (XL) 30 MG TAB PO SCH ×2 (09:01→21:33)
[2016-12-29] MEDS: SALMETEROL/FLUTICASONE 500/50 INHA INH SCH ×2 (09:01→21:34)
[2016-12-29] MEDS: INSULIN ASPART [NOVOLOG] 3 ML PEN SC SCH ×4 (09:09→21:00)
[2016-12-29] MEDS: INSULIN GLARGINE [LANtus] 3 ML PEN SC SCH (09:09)
[2016-12-29] MEDS: ENOXAPARIN 40 MG/0.4 ML SYG SC SCH (09:10)
[2016-12-29] MEDS ORDERED: LANT3I SC (11:08)
[2016-12-29] MEDS ORDERED: LEVO500T72 PO (11:08)
[2016-12-29] MEDS: metFORMIN 500 MG TAB PO SCH ×2 (11:50→17:21)
--- NOTE | 2016-12-29 16:45 | CONS ---
Date/Time of Note Date/Time of Note DATE: 12/29/16 TIME: 16:43 Consult Date/Type/Reason Admit Date/Time Dec 20, 2016 at 10:24 Initial Consult Date Pulm Subjective No events. Objective Vital Signs Date Time Temp Pulse Resp B/P Pulse Ox O2 Delivery O2 Flow Rate FiO2 12/29/16 14:21 2.0 28 12/29/16 14:21 92 20 Nasal Cannula 12/29/16 07:17 97.6 133/101 97 Intake and Output 12/28/16 12/28/16 12/29/16 15:00 23:00 07:00 Intake Total 1040 ml 1080 ml Balance 1040 ml 1080 ml HEENT: Neck supple; no JVD; no LAD CVS: RRR, S1 and S2 CHEST: rhonchi upper lung zones ABD: Soft, NT, + BS EXT: No c/c/e Results/Medications Result Diagram: 12/26/16 0525 12/26/16 0521 Results 24 hrs Laboratory Tests Test 12/28/16 17:36 12/28/16 20:21 12/29/16 01:58 12/29/16 07:48 Bedside Glucose 234 H 251 H 172 150 Test 12/29/16 11:49 Bedside Glucose 148 Medications Current Medications Albuterol/ Ipratropium (Duoneb) 3 ml Q4 HHN Last administered on 12/29/16 14: 21; Admin Dose 3 ML; Start 12/20/16 at 13:00 Aspirin (Aspirin) 81 mg DAILY PO Last administered on 12/29/16 09:00; Admin Dose 81 MG; Start 12/21/16 at 09:00 Magnesium Oxide (Mag-Ox 400) 400 mg DAILY PO Last administered on 12/29/16 09: 00; Admin Dose 400 MG; Start 12/21/16 at 09:00 Montelukast Sodium (Singulair) 10 mg QHS PO Last administered on 12/28/16 20: 22; Admin Dose 10 MG; Start 12/20/16 at 21:00 Nifedipine (Procardia Xl) 30 mg BID PO Last administered on 12/29/16 09:01; Admin Dose 30 MG; Start 12/20/16 at 21:00 Salmeterol Xinafoate/ Fluticasone (Advair 500/50 Diskus) 1 inh BID INH Last administered on 12/29/16 09:01; Admin Dose 1 INH; Start 12/20/16 at 21:00 Pantoprazole (Protonix Tab) 40 mg DAILY@06 PO Last administered on 12/29/16 05 :50; Admin Dose 40 MG; Start 12/21/16 at 06:00 Ondansetron HCl (Zofran Inj) 4 mg Q6H PRN IV NAUSEA AND/OR VOMITING; Start at 11:00 Acetaminophen (Tylenol Tab) 650 mg Q6H PRN PO PAIN LEVEL 1-3 OR FEVER; Start at 11:00 Acetaminophen (Tylenol Supp) 650 mg Q6H PRN [place] PAIN LEVEL 1-3 OR FEVER; Start 12/20/16 at 11:00 Acetaminophen/ Hydrocodone Bitart ([place] (5/325)) 1 tab Q6H PRN PO MODERATE PAIN LEVEL 4-6; Start 12/20/16 at 11:00 Acetaminophen/ Hydrocodone Bitart ([place] (5/325)) 2 tab Q6H PRN PO SEVERE PAIN LEVEL 7-10; Start 12/20/16 at 11:00 Morphine Sulfate (morphine) 2 mg Q4H PRN IV SEVERE PAIN LEVEL 7-10; Start 12/20 at 11:00 Docusate Sodium (Colace) 100 mg Q12H PRN PO CONSTIPATION Last administered on 08:45; Admin Dose 100 MG; Start 12/20/16 at 11:00 Magnesium Hydroxide (Milk Of Mag) 30 ml DAILY PRN PO CONSTIPATION Last administered on 12/28/16 08:45; Admin Dose 30 ML; Start 12/20/16 at 11:00 Bisacodyl (Dulcolax Supp) 10 mg DAILY PRN [place] CONSTIPATION Last administered on 12/24/16 14:49; Admin Dose 10 MG; Start 12/20/16 at 11:00 Insulin Glargine (Lantus) 10 unit QAM SC Last administered on 12/29/16 09:09; Admin Dose 10 UNIT; Start 12/21/16 at 10:00 Diagnostic Test (Pha) (Accucheck) 1 ea 02 XX Last administered on 12/22/16 01: 39; Admin Dose 1 EA; Start 12/22/16 at 02:00 Miscellaneous Information 1 ea NOTE XX ; Start 12/21/16 at 09:30 Glucose (Glutose) 15 gm Q15M PRN PO DECREASED GLUCOSE; Start 12/21/16 at 09:30 Glucose (Glutose) 22.5 gm Q15M PRN PO DECREASED GLUCOSE; Start 12/21/16 at 09: 30 Dextrose (D50w Syringe) 25 ml Q15M PRN IV DECREASED GLUCOSE; Start 12/21/16 at 09:30 Dextrose (D50w Syringe) 50 ml Q15M PRN IV DECREASED GLUCOSE; Start 12/21/16 at 09:30 Glucagon (Glucagen) 1 mg Q15M PRN IM DECREASED GLUCOSE; Start 12/21/16 at 09:30 Glucose (Glutose) 15 gm Q15M PRN BUCCAL DECREASED GLUCOSE; Start 12/21/16 at 09 :30 Levofloxacin (Levaquin) 500 mg DAILY@06 PO Last administered on 12/29/16 05:50 ; Admin Dose 500 MG; Start 12/23/16 at 16:00 Enoxaparin Sodium (Lovenox) 40 mg DAILY SC Last administered on 12/29/16t 09:10 ; Admin Dose 40 MG; Start 12/25/16 at 14:30 Prednisone (Prednisone) 40 mg DAILY PO ; Start 12/29/16 at 17:00; Status UNV Assessment/Plan Additional Assessment/Plan IMPRESSION: 1. 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 A less likely consideration would be cystic sarcoidosis. The airway structural abnormalities will predispose her to recurrent bacterial infections RECS: 1. Transition to prednisone 40 daily; d/c solumedrol 2. Continue BD's/CPT 3. Flutter valve 4. titrate off oxygen 5. Mobilize JENNIFER NGUYEN MD Dec 29, 2016 16:45
[2016-12-29] MEDS: predniSONE 20 MG TAB PO SCH (17:21)
--- NOTE | 2016-12-29 17:33 | PN ---
Date/Time of Note Date/Time of Note DATE: 12/29/16 TIME: 17:31 Assessment/Plan VTE Prophylaxis VTE Prophylaxis Intervention: SCD's Lines/Catheters IV [facility]ter Type (from [facility]): [facility] Urinary Cath still in place: No Assessment/Plan Assessment/Plan 66 yo F with Severe Chronic obstructive pulmonary disease with exacerbation. Acute bronchitis with acromobacter Hemoptysis 2/2 above: resolved Diabetes.mellitus, A1c at 6.4.: controlled Chronic Hep C Liver cirrhosis with thrombocytopenia Chronic resp failure on home O2 PLAN: Continue Pulmonary regimen Continue hypoglycemic regimen Continue abx Plan for D/c tomorrow if patient feels better Continue supportive care. Subjective 24 Hr Interval Summary Free Text/Dictation Patient seen and examined. states she feels weak and doesn't feel well enough to go today Exam/Review of Systems Vital Signs Vitals Vital Signs Date Time Temp Pulse Resp B/P Pulse Ox O2 Delivery O2 Flow Rate FiO2 12/29/16 16:57 89 20 Nasal Cannula 2.0 28 12/29/16 07:17 97.6 133/101 97 Intake and Output 12/28/16 12/28/16 12/29/16 15:00 23:00 07:00 Intake Total 1040 ml 1080 ml Balance 1040 ml 1080 ml Exam Constitutional: alert, obese, oriented Head: normocephalic Eyes: PERRL Neck: supple Respiratory: diminished breath sounds, wheezing (++), ?less Cardiovascular: regular rate and rhythm Gastrointestinal: bowel sounds, non-tender, soft Extremities: No edema Neurological: nl mental status Results Result Diagram: 12/26/16 0525 12/26/16 0521 Results 24 hrs Laboratory Tests Test 12/28/16 17:36 12/28/16 20:21 12/29/16 01:58 12/29/16 07:48 Bedside Glucose 234 H 251 H 172 150 Test 12/29/16 11:49 12/29/16 17:15 Bedside Glucose 148 176 Medications Medications Current Medications Albuterol/ Ipratropium (Duoneb) 3 ml Q4 HHN Last administered on 12/29/16 16: 57; Admin Dose 3 ML; Start 12/20/16 at 13:00 Aspirin (Aspirin) 81 mg DAILY PO Last administered on 12/29/16 09:00; Admin Dose 81 MG; Start 12/21/16 at 09:00 Magnesium Oxide (Mag-Ox 400) 400 mg DAILY PO Last administered on 12/29/16 09: 00; Admin Dose 400 MG; Start 12/21/16 at 09:00 Montelukast Sodium (Singulair) 10 mg QHS PO Last administered on 12/28/16 20: 22; Admin Dose 10 MG; Start 12/20/16 at 21:00 Nifedipine (Procardia Xl) 30 mg BID PO Last administered on 12/29/16 09:01; Admin Dose 30 MG; Start 12/20/16 at 21:00 Salmeterol Xinafoate/ Fluticasone (Advair 500/50 Diskus) 1 inh BID INH Last administered on 12/29/16 09:01; Admin Dose 1 INH; Start 12/20/16 at 21:00 Pantoprazole (Protonix Tab) 40 mg DAILY@06 PO Last administered on 12/29/16 05 :50; Admin Dose 40 MG; Start 12/21/16 at 06:00 Ondansetron HCl (Zofran Inj) 4 mg Q6H PRN IV NAUSEA AND/OR VOMITING; Start at 11:00 Acetaminophen (Tylenol Tab) 650 mg Q6H PRN PO PAIN LEVEL 1-3 OR FEVER; Start at 11:00 Acetaminophen (Tylenol Supp) 650 mg Q6H PRN [place] PAIN LEVEL 1-3 OR FEVER; Start 12/20/16 at 11:00 Acetaminophen/ Hydrocodone Bitart ([place] (5/325)) 1 tab Q6H PRN PO MODERATE PAIN LEVEL 4-6; Start 12/20/16 at 11:00 Acetaminophen/ Hydrocodone Bitart ([place] (5/325)) 2 tab Q6H PRN PO SEVERE PAIN LEVEL 7-10; Start 12/20/16 at 11:00 Morphine Sulfate (morphine) 2 mg Q4H PRN IV SEVERE PAIN LEVEL 7-10; Start 12/20 at 11:00 Docusate Sodium (Colace) 100 mg Q12H PRN PO CONSTIPATION Last administered on 08:45; Admin Dose 100 MG; Start 12/20/16 at 11:00 Magnesium Hydroxide (Milk Of Mag) 30 ml DAILY PRN PO CONSTIPATION Last administered on 12/28/16 08:45; Admin Dose 30 ML; Start 12/20/16 at 11:00 Bisacodyl (Dulcolax Supp) 10 mg DAILY PRN [place] CONSTIPATION Last administered on 12/24/16 14:49; Admin Dose 10 MG; Start 12/20/16 at 11:00 Insulin Glargine (Lantus) 10 unit QAM SC Last administered on 12/29/16 09:09; Admin Dose 10 UNIT; Start 12/21/16 at 10:00 Diagnostic Test (Pha) (Accucheck) 1 ea 02 XX Last administered on 12/22/16 01: 39; Admin Dose 1 EA; Start 12/22/16 at 02:00 Miscellaneous Information 1 ea NOTE XX ; Start 12/21/16 at 09:30 Glucose (Glutose) 15 gm Q15M PRN PO DECREASED GLUCOSE; Start 12/21/16 at 09:30 Glucose (Glutose) 22.5 gm Q15M PRN PO DECREASED GLUCOSE; Start 12/21/16 at 09: 30 Dextrose (D50w Syringe) 25 ml Q15M PRN IV DECREASED GLUCOSE; Start 12/21/16 at 09:30 Dextrose (D50w Syringe) 50 ml Q15M PRN IV DECREASED GLUCOSE; Start 12/21/16 at 09:30 Glucagon (Glucagen) 1 mg Q15M PRN IM DECREASED GLUCOSE; Start 12/21/16 at 09:30 Glucose (Glutose) 15 gm Q15M PRN BUCCAL DECREASED GLUCOSE; Start 12/21/16 at 09 :30 Levofloxacin (Levaquin) 500 mg DAILY@06 PO Last administered on 12/29/16 05:50 ; Admin Dose 500 MG; Start 12/23/16 at 16:00 Enoxaparin Sodium (Lovenox) 40 mg DAILY SC Last administered on 12/29/16 09:10 ; Admin Dose 40 MG; Start 12/25/16 at 14:30 Prednisone (Prednisone) 40 mg DAILY PO Last administered on 12/29/16 17:21; Admin Dose 40 MG; Start 12/29/16 at 17:00 NEGRO NGUYEN Dec 29, 2016 17:33
[2016-12-29 20:00] VITALS: BP 141/64; RESP 20
[2016-12-29] MEDS: MONTELUKAST 10 MG TAB PO SCH (21:33)
[2016-12-29 21:36] VITALS: RESP 19
[2016-12-30] MEDS: ALBUTEROL/IPRATROPIUM (NEB) 3 ML AMP HHN SCH ×6 (00:19→20:08)
[2016-12-30] MEDS: ACCUCHECK XX SCH (02:00)
[2016-12-30] MEDS: PANTOPRAZOLE (EC) 40 MG TAB PO SCH (05:33)
[2016-12-30] MEDS: LEVOFLOXACIN 500 MG TAB PO SCH (05:33)
[2016-12-30 07:29] VITALS: BP 123/61; RESP 18
[2016-12-30] MEDS: NIFEdipine (XL) 30 MG TAB PO SCH ×2 (08:53→20:48)
[2016-12-30] MEDS: ASPIRIN 81 MG TAB PO SCH (08:53)
[2016-12-30] MEDS: MAGNESIUM OXIDE 400 MG TAB PO SCH (08:53)
[2016-12-30] MEDS: SALMETEROL/FLUTICASONE 500/50 INHA INH SCH ×2 (08:53→20:49)
[2016-12-30] MEDS: predniSONE 20 MG TAB PO SCH (08:53)
[2016-12-30] MEDS: INSULIN ASPART [NOVOLOG] 3 ML PEN SC SCH ×4 (08:54→20:50)
[2016-12-30] MEDS: INSULIN GLARGINE [LANtus] 3 ML PEN SC SCH (08:57)
[2016-12-30] MEDS: ENOXAPARIN 40 MG/0.4 ML SYG SC SCH (08:57)
--- NOTE | 2016-12-30 09:24 | PN ---
Date/Time of Note Date/Time of Note DATE: 12/30/16 TIME: 09:21 Assessment/Plan VTE Prophylaxis VTE Prophylaxis Intervention: SCD's Lines/Catheters [facility] Type [facility]from [facility] Urinary Cath still in place: No Assessment/Plan Chief Complaint/Hosp Course Assessment/Plan 66 yo F with 1. Severe Chronic obstructive pulmonary disease with exacerbation. Still + wheezes and hemoptysis. - Continue Pulmonary regimen - abx, duoneb's, steroids - PT eval 2. Acute bronchitis with acromobacter - see # 1 - abx, duoneb's, steroids 3. Diabetes.mellitus, A1c at 6.4.: controlled - ISS 4. Chronic Hep C Liver cirrhosis with thrombocytopenia - monitor 5. Chronic resp failure - on home O2 - continue O2, monitor Problems: Subjective 24 Hr Interval Summary Free Text/Dictation Pt still with SOB + hemoptysis. Exam/Review of Systems Vital Signs Vitals Vital Signs Date Time Temp Pulse Resp B/P Pulse Ox O2 Delivery O2 Flow Rate FiO2 12/30/16 08:21 85 16 98 Nasal Cannula 2.0 12/30/16 07:29 97.9 123/61 12/29/16 20:14 28 Intake and Output 12/29/16 12/29/16 12/30/16 15:00 23:00 07:00 Intake Total 1400 ml 240 ml Balance 1400 ml 240 ml Exam Constitutional: alert, obese, oriented Head: normocephalic Eyes: PERRL Neck: supple Respiratory: diminished breath sounds, wheezing (+) Cardiovascular: regular rate and rhythm Gastrointestinal: bowel sounds, non-tender, soft Extremities: No edema Neurological: nl mental status Results Result Diagram: 12/26/16 0525 12/26/16 0521 Results 24 hrs Laboratory Tests Test 12/29/16 11:49 12/29/16 17:15 12/29/16 21:30 12/30/16 07:46 Bedside Glucose 148 176 150 155 Medications Medications Current Medications Albuterol/ Ipratropium (Duoneb) 3 ml Q4 HHN Last administered on 12/30/16 08: 20; Admin Dose 3 ML; Start 12/20/16 at 13:00 Aspirin (Aspirin) 81 mg DAILY PO Last administered on 12/30/16 08:53; Admin Dose 81 MG; Start 12/21/16 at 09:00 Magnesium Oxide (Mag-Ox 400) 400 mg DAILY PO Last administered on 12/30/16 08: 53; Admin Dose 400 MG; Start 12/21/16 at 09:00 Montelukast Sodium (Singulair) 10 mg QHS PO Last administered on 12/29/16 21: 33; Admin Dose 10 MG; Start 12/20/16 at 21:00 Nifedipine (Procardia Xl) 30 mg BID PO Last administered on 12/30/16 08:53; Admin Dose 30 MG; Start 12/20/16 at 21:00 Salmeterol Xinafoate/ Fluticasone (Advair 500/50 Diskus) 1 inh BID INH Last administered on 12/30/16 08:53; Admin Dose 1 INH; Start 12/20/16 at 21:00 Pantoprazole (Protonix Tab) 40 mg DAILY@06 PO Last administered on 12/30/16 05 :33; Admin Dose 40 MG; Start 12/21/16 at 06:00 Ondansetron HCl (Zofran Inj) 4 mg Q6H PRN IV NAUSEA AND/OR VOMITING; Start at 11:00 Acetaminophen (Tylenol Tab) 650 mg Q6H PRN PO PAIN LEVEL 1-3 OR FEVER; Start at 11:00 Acetaminophen (Tylenol Supp) 650 mg Q6H PRN [place] PAIN LEVEL 1-3 OR FEVER; Start 12/20/16 at 11:00 Acetaminophen/ Hydrocodone Bitart ([place] (5/325)) 1 tab Q6H PRN PO MODERATE PAIN LEVEL 4-6; Start 12/20/16 at 11:00 Acetaminophen/ Hydrocodone Bitart ([place] (5/325)) 2 tab Q6H PRN PO SEVERE PAIN LEVEL 7-10; Start 12/20/16 at 11:00 Morphine Sulfate (morphine) 2 mg Q4H PRN IV SEVERE PAIN LEVEL 7-10; Start 12/20 at 11:00 Docusate Sodium (Colace) 100 mg Q12H PRN PO CONSTIPATION Last administered on 08:45; Admin Dose 100 MG; Start 12/20/16 at 11:00 Magnesium Hydroxide (Milk Of Mag) 30 ml DAILY PRN PO CONSTIPATION Last administered on 1/28/17at 08:45; Admin Dose 30 ML; Start 12/20/16 at 11:00 Bisacodyl (Dulcolax Supp) 10 mg DAILY PRN [place] CONSTIPATION Last administered on 12/24/16 14:49; Admin Dose 10 MG; Start 12/20/16 at 11:00 Insulin Glargine (Lantus) 10 unit QAM SC Last administered on 12/30/16 08:57; Admin Dose 10 UNIT; Start 12/21/16 at 10:00 Diagnostic Test (Pha) (Accucheck) 1 ea 02 XX Last administered on 12/22/16 01: 39; Admin Dose 1 EA; Start 12/22/16 at 02:00 Miscellaneous Information 1 ea NOTE XX ; Start 12/21/16 at 09:30 Glucose (Glutose) 15 gm Q15M PRN PO DECREASED GLUCOSE; Start 12/21/16 at 09:30 Glucose (Glutose) 22.5 gm Q15M PRN PO DECREASED GLUCOSE; Start 12/21/16 at 09: 30 Dextrose (D50w Syringe) 25 ml Q15M PRN IV DECREASED GLUCOSE; Start 12/21/16 at 09:30 Dextrose (D50w Syringe) 50 ml Q15M PRN IV DECREASED GLUCOSE; Start 12/21/16 at 09:30 Glucagon (Glucagen) 1 mg Q15M PRN IM DECREASED GLUCOSE; Start 12/21/16 at 09:30 Glucose (Glutose) 15 gm Q15M PRN BUCCAL DECREASED GLUCOSE; Start 12/21/16 at 09 :30 Levofloxacin (Levaquin) 500 mg DAILY@06 PO Last administered on 12/30/16 05:33 ; Admin Dose 500 MG; Start 12/23/16 at 16:00 Enoxaparin Sodium (Lovenox) 40 mg DAILY SC Last administered on 12/30/16 08:57 ; Admin Dose 40 MG; Start 12/25/16 at 14:30 Prednisone (Prednisone) 40 mg DAILY PO Last administered on 12/30/16 08:53; Admin Dose 40 MG; Start 12/29/16 at 17:00 KAYLEEN MATHEW Dec 30, 2016 09:24
--- NOTE | 2016-12-30 09:29 | CONS ---
Date/Time of Note Date/Time of Note DATE: 12/30/16 TIME: 09:21 Assessment/Plan Assessment/Plan Additional Assessment/Plan Assessment and recommendations; 1. Patient admitted with severe COPD has underlying bronchiectasis from prior pulmonary tuberculosis. Next 2. Persistent wheezing on 40 mg prednisone daily. Continue current treatment. Recent is an excellent candidate for transfer to a pulmonary rehab center. Prognosis is guarded. Consultation Date/Type/Reason Admit Date/Time Dec 20, 2016 at 10:24 24 HR Interval Summary Free Text/Dictation HEENT examination; supple neck, no JVD. No lymphadenopathy. Patient is mostly edentulous. Pharynx is clear. Pupils are small bilaterally. Chest examination; decreased breath sounds bilaterally with bilateral expiratory wheezing with scattered crackles. S1-S2 audible no murmurs regular rhythm. Abdomen; soft, nondistended, no organomegaly. Bowel sounds audible. Extremity examination; no peripheral edema. Next [employer] DIRECT[employer] examination; no focal deficit. Exam/Review of Systems Vital Signs Vitals Vital Signs Date Time Temp Pulse Resp B/P Pulse Ox O2 Delivery O2 Flow Rate FiO2 12/30/16 08:21 85 16 98 Nasal Cannula 2.0 12/30/16 07:29 97.9 123/61 12/29/16 20:14 28 Intake and Output 12/29/16 12/29/16 12/30/16 15:00 23:00 07:00 Intake Total 1400 ml 240 ml Balance 1400 ml 240 ml Results Result Diagram: 12/26/16 0525 12/26/16 0521 Results 24 hrs Laboratory Tests Test 12/29/16 11:49 12/29/16 17:15 12/29/16 21:30 12/30/16 07:46 Bedside Glucose 148 176 150 155 Medications Medications Current Medications Albuterol/ Ipratropium (Duoneb) 3 ml Q4 HHN Last administered on 12/30/16 08: 20; Admin Dose 3 ML; Start 12/20/16 at 13:00 Aspirin (Aspirin) 81 mg DAILY PO Last administered on 12/30/16 08:53; Admin Dose 81 MG; Start 12/21/16 at 09:00 Magnesium Oxide (Mag-Ox 400) 400 mg DAILY PO Last administered on 12/30/16 08: 53; Admin Dose 400 MG; Start 12/21/16 at 09:00 Montelukast Sodium (Singulair) 10 mg QHS PO Last administered on 12/29/16 21: 33; Admin Dose 10 MG; Start 12/20/16 at 21:00 Nifedipine (Procardia Xl) 30 mg BID PO Last administered on 12/30/16 08:53; Admin Dose 30 MG; Start 12/20/16 at 21:00 Salmeterol Xinafoate/ Fluticasone (Advair 500/50 Diskus) 1 inh BID INH Last administered on 12/30/16 08:53; Admin Dose 1 INH; Start 12/20/16 at 21:00 Pantoprazole (Protonix Tab) 40 mg DAILY@06 PO Last administered on 12/30/16 05 :33; Admin Dose 40 MG; Start 12/21/16 at 06:00 Ondansetron HCl (Zofran Inj) 4 mg Q6H PRN IV NAUSEA AND/OR VOMITING; Start at 11:00 Acetaminophen (Tylenol Tab) 650 mg Q6H PRN PO PAIN LEVEL 1-3 OR FEVER; Start at 11:00 Acetaminophen (Tylenol Supp) 650 mg Q6H PRN [place] PAIN LEVEL 1-3 OR FEVER; Start 12/20/16 at 11:00 Acetaminophen/ Hydrocodone Bitart ([place] (5/325)) 1 tab Q6H PRN PO MODERATE PAIN LEVEL 4-6; Start 12/20/16 at 11:00 Acetaminophen/ Hydrocodone Bitart ([place] (5/325)) 2 tab Q6H PRN PO SEVERE PAIN LEVEL 7-10; Start 12/20/16 at 11:00 Morphine Sulfate (morphine) 2 mg Q4H PRN IV SEVERE PAIN LEVEL 7-10; Start 12/20 at 11:00 Docusate Sodium (Colace) 100 mg Q12H PRN PO CONSTIPATION Last administered on 08:45; Admin Dose 100 MG; Start 12/20/16 at 11:00 Magnesium Hydroxide (Milk Of Mag) 30 ml DAILY PRN PO CONSTIPATION Last administered on 12/28/16 08:45; Admin Dose 30 ML; Start 12/20/16 at 11:00 Bisacodyl (Dulcolax Supp) 10 mg DAILY PRN [place] CONSTIPATION Last administered on 12/24/16 14:49; Admin Dose 10 MG; Start 12/20/16 at 11:00 Insulin Glargine (Lantus) 10 unit QAM SC Last administered on 12/30/16 08:57; Admin Dose 10 UNIT; Start 12/21/16 at 10:00 Diagnostic Test (Pha) (Accucheck) 1 ea 02 XX Last administered on 12/22/16 01: 39; Admin Dose 1 EA; Start 12/22/16 at 02:00 Miscellaneous Information 1 ea NOTE XX ; Start 12/21/16 at 09:30 Glucose (Glutose) 15 gm Q15M PRN PO DECREASED GLUCOSE; Start 12/21/16 at 09:30 Glucose (Glutose) 22.5 gm Q15M PRN PO DECREASED GLUCOSE; Start 12/21/16 at 09: 30 Dextrose (D50w Syringe) 25 ml Q15M PRN IV DECREASED GLUCOSE; Start 12/21/16 at 09:30 Dextrose (D50w Syringe) 50 ml Q15M PRN IV DECREASED GLUCOSE; Start 12/21/16 at 09:30 Glucagon (Glucagen) 1 mg Q15M PRN IM DECREASED GLUCOSE; Start 12/21/16 at 09:30 Glucose (Glutose) 15 gm Q15M PRN BUCCAL DECREASED GLUCOSE; Start 12/21/16 at 09 :30 Levofloxacin (Levaquin) 500 mg DAILY@06 PO Last administered on 12/30/16 05:33 ; Admin Dose 500 MG; Start 12/23/16 at 16:00 Enoxaparin Sodium (Lovenox) 40 mg DAILY SC Last administered on 12/30/16 08:57 ; Admin Dose 40 MG; Start 12/25/16 at 14:30 Prednisone (Prednisone) 40 mg DAILY PO Last administered on 12/30/16 08:53; Admin Dose 40 MG; Start 12/29/16 at 17:00 CHU TINEO Dec 30, 2016 09:29
[2016-12-30] MEDS: metFORMIN 500 MG TAB PO SCH ×2 (12:45→17:29)
[2016-12-30 19:19] VITALS: BP 136/65; RESP 20
[2016-12-30] MEDS: MONTELUKAST 10 MG TAB PO SCH (20:48)
[2016-12-30] MEDS: MAGNESIUM HYDROXIDE 30ML CUP PO PRN (20:56)
[2016-12-31] MEDS: ALBUTEROL/IPRATROPIUM (NEB) 3 ML AMP HHN SCH ×6 (00:26→20:07)
[2016-12-31] MEDS: ACCUCHECK XX SCH (02:29)
[2016-12-31] MEDS: PANTOPRAZOLE (EC) 40 MG TAB PO SCH (05:33)
[2016-12-31] MEDS: LEVOFLOXACIN 500 MG TAB PO SCH (05:33)
[2016-12-31 05:45] LABS: POTASSIUM 4.3 mmol/L (3.5-5.1)
[2016-12-31 05:48] LABS: CREATININE 0.6 mg/dl (0.44-1.00)
[2016-12-31 05:49] LABS: CALCIUM 9.1 mg/dl (8.4-10.2)
[2016-12-31 06:18] LABS: BASOPHILS % 0.2 % (0.0-2.0); EOSINOPHILS % 0.3 % (0.0-7.0); HEMATOCRIT 39.8 % (37.0-47.0); HEMOGLOBIN 12.9 g/dl (12.0-16.0); LYMPHOCYTES # 1.6 10^3/ul (0.8-2.9); MEAN CORPUSCULAR HEMOGLOBIN 25.8 pg (29.0-33.0); MEAN CORPUSCULAR HGB CONC 32.5 g/dl (32.0-37.0); MEAN CORPUSCULAR VOLUME 79.2 fl (82.0-101.0); MEAN PLATELET VOLUME 12.7 fl (7.4-10.4); MONOCYTE # 0.7 10^3/ul (0.3-0.9); MONOCYTES % 8.5 % (0.0-11.0); NEUTROPHIL # 5.4 10^3/ul (1.6-7.5); PLATELET COUNT 70 10^3/UL (140-440); RED BLOOD COUNT 5.02 10^6/ul (4.20-5.40); UNCORRECTED WBC 7.8 10^3/ul (4.8-10.8); WHITE BLOOD COUNT 7.8 10^3/ul (4.8-10.8)
[2016-12-31 06:52] LABS: CONDITION 1; LH ANALYZER COMMENTS 1
[2016-12-31 07:33] VITALS: BP 143/67; RESP 20
[2016-12-31] MEDS: INSULIN ASPART [NOVOLOG] 3 ML PEN SC SCH ×4 (08:07→20:58)
[2016-12-31] MEDS: NIFEdipine (XL) 30 MG TAB PO SCH ×2 (08:08→20:57)
[2016-12-31] MEDS: predniSONE 20 MG TAB PO SCH (08:08)
[2016-12-31] MEDS: ASPIRIN 81 MG TAB PO SCH (08:08)
[2016-12-31] MEDS: MAGNESIUM OXIDE 400 MG TAB PO SCH (08:08)
[2016-12-31] MEDS: SALMETEROL/FLUTICASONE 500/50 INHA INH SCH ×2 (08:10→20:57)
[2016-12-31] MEDS: ENOXAPARIN 40 MG/0.4 ML SYG SC SCH (08:38)
[2016-12-31] MEDS: INSULIN GLARGINE [LANtus] 3 ML PEN SC SCH (09:00)
--- NOTE | 2016-12-31 09:25 | PN ---
Date/Time of Note Date/Time of Note DATE: 12/31/16 TIME: 09:23 Assessment/Plan VTE Prophylaxis VTE Prophylaxis Intervention: SCD's Lines/Catheters IV [facility] Urinary Cath still in place: No Assessment/Plan Chief Complaint/Hosp Course Assessment/Plan 66 yo F with 1. Severe Chronic obstructive pulmonary disease with exacerbation. Some less + wheezes and hemoptysis now, slowly improving.. - Continue Pulmonary regimen - abx, duoneb's, steroids - PT eval still pending 2. Acute bronchitis with acromobacter - see # 1 - abx, duoneb's, steroids 3. Diabetes.mellitus, A1c at 6.4.: controlled - ISS 4. Chronic Hep C Liver cirrhosis with thrombocytopenia - monitor 5. Chronic resp failure - on home O2 - continue O2, monitor 6. Dispo: home in 24 hrs after PT eval, and if SOB better. Problems: Subjective 24 Hr Interval Summary Free Text/Dictation Pt has less SOB. Exam/Review of Systems Vital Signs Vitals Vital Signs Date Time Temp Pulse Resp B/P Pulse Ox O2 Delivery O2 Flow Rate FiO2 12/31/16 07:33 97.9 87 20 143/67 95 12/31/16 04:34 Nasal Cannula 2.0 12/29/16 20:14 28 Intake and Output 12/30/16 12/30/16 12/31/16 15:00 23:00 07:00 Intake Total 1760 ml 800 ml Balance 1760 ml 800 ml Exam Constitutional: alert, obese, oriented Head: normocephalic Eyes: PERRL Neck: supple Respiratory: less diminished breath sounds, less wheezing (+) Cardiovascular: regular rate and rhythm Gastrointestinal: bowel sounds, non-tender, soft Extremities: No edema Neurological: nl mental status Results Result Diagram: 12/31/16 0445 12/31/165 Results 24 hrs Laboratory Tests Test 12/30/16 11:55 12/30/16 17:27 12/30/16 20:47 12/31/16 02:04 Bedside Glucose 128 187 181 130 Test 12/31/16 04:45 12/31/16 07:45 Anion Gap 13 Basophils # 0.0 Basophils % 0.2 Blood Morphology Comment Blood Urea Nitrogen 28 H Calcium Level 9.1 Carbon Dioxide Level 33 H Chloride Level 94 L Creatinine 0.60 Eosinophils # 0.0 Eosinophils % 0.3 Glucose Level 103 Hematocrit 39.8 Hemoglobin 12.9 Lymphocytes # 1.6 Lymphocytes % 21.0 Mean Corpuscular Hemoglobin 25.8 L Mean Corpuscular Hemoglobin Concent 32.5 Mean Corpuscular Volume 79.2 L Mean Platelet Volume 12.7 H Monocytes # 0.7 Monocytes % 8.5 Neutrophils # 5.4 Neutrophils % 70.0 Nucleated Red Blood Cells # 0.0 Nucleated Red Blood Cells % 0.0 Platelet Count 70 #L Potassium Level 4.3 Red Blood Count 5.02 Red Cell Distribution Width 14.0 Sodium Level 136 White Blood Count 7.8 # Bedside Glucose 98 Medications Medications Current Medications Albuterol/ Ipratropium (Duoneb) 3 ml Q4 HHN Last administered on 12/31/16 04: 34; Admin Dose 3 ML; Start 12/20/16 at 13:00 Aspirin (Aspirin) 81 mg DAILY PO Last administered on 12/31/16 08:08; Admin Dose 81 MG; Start 12/21/16 at 09:00 Magnesium Oxide (Mag-Ox 400) 400 mg DAILY PO Last administered on 12/31/16 08: 08; Admin Dose 400 MG; Start 12/21/16 at 09:00 Montelukast Sodium (Singulair) 10 mg QHS PO Last administered on 12/30/16 20: 48; Admin Dose 10 MG; Start 12/20/16 at 21:00 Nifedipine (Procardia Xl) 30 mg BID PO Last administered on 12/31/16 08:08; Admin Dose 30 MG; Start 12/20/16 at 21:00 Salmeterol Xinafoate/ Fluticasone (Advair 500/50 Diskus) 1 inh BID INH Last administered on 12/31/16 08:10; Admin Dose 1 INH; Start 12/20/16 at 21:00 Pantoprazole (Protonix Tab) 40 mg DAILY@06 PO Last administered on 12/31/16 05 :33; Admin Dose 40 MG; Start 12/21/16 at 06:00 Ondansetron HCl (Zofran Inj) 4 mg Q6H PRN IV NAUSEA AND/OR VOMITING; Start at 11:00 Acetaminophen (Tylenol Tab) 650 mg Q6H PRN PO PAIN LEVEL 1-3 OR FEVER; Start at 11:00 Acetaminophen (Tylenol Supp) 650 mg Q6H PRN [place] PAIN LEVEL 1-3 OR FEVER; Start 12/20/16 at 11:00 Acetaminophen/ Hydrocodone Bitart ([place] (5/325)) 1 tab Q6H PRN PO MODERATE PAIN LEVEL 4-6; Start 12/20/16 at 11:00 Acetaminophen/ Hydrocodone Bitart ([place] (5/325)) 2 tab Q6H PRN PO SEVERE PAIN LEVEL 7-10; Start 12/20/16 at 11:00 Morphine Sulfate (morphine) 2 mg Q4H PRN IV SEVERE PAIN LEVEL 7-10; Start 12/20 at 11:00 Docusate Sodium (Colace) 100 mg Q12H PRN PO CONSTIPATION Last administered on 08:45; Admin Dose 100 MG; Start 12/20/16 at 11:00 Magnesium Hydroxide (Milk Of Mag) 30 ml DAILY PRN PO CONSTIPATION Last administered on 12/30/16 20:56; Admin Dose 30 ML; Start 12/20/16 at 11:00 Bisacodyl (Dulcolax Supp) 10 mg DAILY PRN [place] CONSTIPATION Last administered on 12/24/16 14:49; Admin Dose 10 MG; Start 12/20/16 at 11:00 Insulin Glargine (Lantus) 10 unit QAM SC Last administered on 12/30/16 08:57; Admin Dose 10 UNIT; Start 12/21/16 at 10:00 Diagnostic Test (Pha) (Accucheck) 1 ea 02 XX Last administered on 12/31/16 02: 29; Admin Dose 1 EA; Start 12/22/16 at 02:00 Miscellaneous Information 1 ea NOTE XX ; Start 12/21/16 at 09:30 Glucose (Glutose) 15 gm Q15M PRN PO DECREASED GLUCOSE; Start 12/21/16 at 09:30 Glucose (Glutose) 22.5 gm Q15M PRN PO DECREASED GLUCOSE; Start 12/21/16 at 09: 30 Dextrose (D50w Syringe) 25 ml Q15M PRN IV DECREASED GLUCOSE; Start 12/21/16 at 09:30 Dextrose (D50w Syringe) 50 ml Q15M PRN IV DECREASED GLUCOSE; Start 1/21/17 at 09:30 Glucagon (Glucagen) 1 mg Q15M PRN IM DECREASED GLUCOSE; Start 12/21/16 at 09:30 Glucose (Glutose) 15 gm Q15M PRN BUCCAL DECREASED GLUCOSE; Start 12/21/16 at 09 :30 Levofloxacin (Levaquin) 500 mg DAILY@06 PO Last administered on 12/31/16 05:33 ; Admin Dose 500 MG; Start 12/23/16 at 16:00 Enoxaparin Sodium (Lovenox) 40 mg DAILY SC Last administered on 12/31/16 08:38 ; Admin Dose 40 MG; Start 12/25/16 at 14:30 Prednisone (Prednisone) 40 mg DAILY PO Last administered on 12/31/16 08:08; Admin Dose 40 MG; Start 12/29/16 at 17:00 KAYLEEN MATHEW Dec 31, 2016 09:25
--- NOTE | 2016-12-31 09:56 | CONS ---
Date/Time of Note Date/Time of Note DATE: 12/31/16 TIME: 09:54 Assessment/Plan Assessment/Plan Additional Assessment/Plan Assessment and recommendations; next 1. Patient admitted with severe COPD exacerbation with flareup of acute bronchitis which is attributed mainly to underlying bronchiectasis from history of prior pulmonary tuberculosis. Continue current treatment at this time continue prednisone at current dosing which is 40 mg a day. Patient to be discharged home in about 24 hours however prior to discharge I would recommend obtaining ambulatory pulse oximetry on room air to ensure patient is not hypoxemic. Consultation Date/Type/Reason Admit Date/Time Dec 20, 2016 at 10:24 24 HR Interval Summary Free Text/Dictation Patient condition is improved. Reporting decreased shortness of breath , decreased wheezing as well as decreased cough with almost complete resolution of hemoptysis. General examination; elderly lady awake alert currently in no distress. Sitting in a chair by the window. Exam/Review of Systems Vital Signs Vitals Vital Signs Date Time Temp Pulse Resp B/P Pulse Ox O2 Delivery O2 Flow Rate FiO2 12/31/16 07:33 97.9 87 20 143/67 95 12/31/16 04:34 Nasal Cannula 2.0 12/29/16 20:14 28 Intake and Output 12/30/16 12/30/16 12/31/16 15:00 23:00 07:00 Intake Total 1760 ml 800 ml Balance 1760 ml 800 ml Exam HEENT examination; supple neck, no JVD. No lymphadenopathy. Pharynx is clear. Patient is mostly edentulous. Next Chest examination; significantly improved breath sounds bilaterally with very minimal expiratory wheezing. S1-S2 audible no murmurs regular rhythm. Abdomen examination; soft, nontender. No organomegaly. Bowel sounds audible. Extremity examination; no peripheral edema. AUTOPSY PATHOLOGIST examination; no focal deficit. Results Result Diagram: 12/31/16 0445 12/31/16 0445 Results 24 hrs Laboratory Tests Test 12/30/16 11:55 12/30/16 17:27 12/30/16 20:47 12/31/16 02:04 Bedside Glucose 128 187 181 130 Test 12/31/16 04:45 12/31/16 07:45 Anion Gap 13 Basophils # 0.0 Basophils % 0.2 Blood Morphology Comment Blood Urea Nitrogen 28 H Calcium Level 9.1 Carbon Dioxide Level 33 H Chloride Level 94 L Creatinine 0.60 Eosinophils # 0.0 Eosinophils % 0.3 Glucose Level 103 Hematocrit 39.8 Hemoglobin 12.9 Lymphocytes # 1.6 Lymphocytes % 21.0 Mean Corpuscular Hemoglobin 25.8 L Mean Corpuscular Hemoglobin Concent 32.5 Mean Corpuscular Volume 79.2 L Mean Platelet Volume 12.7 H Monocytes # 0.7 Monocytes % 8.5 Neutrophils # 5.4 Neutrophils % 70.0 Nucleated Red Blood Cells # 0.0 Nucleated Red Blood Cells % 0.0 Platelet Count 70 #L Potassium Level 4.3 Red Blood Count 5.02 Red Cell Distribution Width 14.0 Sodium Level 136 White Blood Count 7.8 # Bedside Glucose 98 Medications Medications Current Medications Albuterol/ Ipratropium (Duoneb) 3 ml Q4 HHN Last administered on 12/31/16 04: 34; Admin Dose 3 ML; Start 12/20/16 at 13:00 Aspirin (Aspirin) 81 mg DAILY PO Last administered on 12/31/16 08:08; Admin Dose 81 MG; Start 12/21/16 at 09:00 Magnesium Oxide (Mag-Ox 400) 400 mg DAILY PO Last administered on 12/31/16 08: 08; Admin Dose 400 MG; Start 12/21/16 at 09:00 Montelukast Sodium (Singulair) 10 mg QHS PO Last administered on 12/30/16 20: 48; Admin Dose 10 MG; Start 12/20/16 at 21:00 Nifedipine (Procardia Xl) 30 mg BID PO Last administered on 12/31/16 08:08; Admin Dose 30 MG; Start 12/20/16 at 21:00 Salmeterol Xinafoate/ Fluticasone (Advair 500/50 Diskus) 1 inh BID INH Last administered on 12/31/16 08:10; Admin Dose 1 INH; Start 12/20/16 at 21:00 Pantoprazole (Protonix Tab) 40 mg DAILY@06 PO Last administered on 12/31/16 05 :33; Admin Dose 40 MG; Start 12/21/16 at 06:00 Ondansetron HCl (Zofran Inj) 4 mg Q6H PRN IV NAUSEA AND/OR VOMITING; Start at 11:00 Acetaminophen (Tylenol Tab) 650 mg Q6H PRN PO PAIN LEVEL 1-3 OR FEVER; Start at 11:00 Acetaminophen (Tylenol Supp) 650 mg Q6H PRN [place] PAIN LEVEL 1-3 OR FEVER; Start 12/20/16 at 11:00 Acetaminophen/ Hydrocodone Bitart ([place] (5/325)) 1 tab Q6H PRN PO MODERATE PAIN LEVEL 4-6; Start 12/20/16 at 11:00 Acetaminophen/ Hydrocodone Bitart ([place] (5/325)) 2 tab Q6H PRN PO SEVERE PAIN LEVEL 7-10; Start 12/20/16 at 11:00 Morphine Sulfate (morphine) 2 mg Q4H PRN IV SEVERE PAIN LEVEL 7-10; Start 12/20 at 11:00 Docusate Sodium (Colace) 100 mg Q12H PRN PO CONSTIPATION Last administered on 08:45; Admin Dose 100 MG; Start 12/20/16 at 11:00 Magnesium Hydroxide (Milk Of Mag) 30 ml DAILY PRN PO CONSTIPATION Last administered on 12/30/16 20:56; Admin Dose 30 ML; Start 12/20/16 at 11:00 Bisacodyl (Dulcolax Supp) 10 mg DAILY PRN [place] CONSTIPATION Last administered on 12/24/16 14:49; Admin Dose 10 MG; Start 12/20/16 at 11:00 Insulin Glargine (Lantus) 10 unit QAM SC Last administered on 12/30/16 08:57; Admin Dose 10 UNIT; Start 12/21/16 at 10:00 Diagnostic Test (Pha) (Accucheck) 1 ea 02 XX Last administered on 12/31/16 02: 29; Admin Dose 1 EA; Start 12/22/16 at 02:00 Miscellaneous Information 1 ea NOTE XX ; Start 12/21/16 at 09:30 Glucose (Glutose) 15 gm Q15M PRN PO DECREASED GLUCOSE; Start 12/21/16 at 09:30 Glucose (Glutose) 22.5 gm Q15M PRN PO DECREASED GLUCOSE; Start 12/21/16 at 09: 30 Dextrose (D50w Syringe) 25 ml Q15M PRN IV DECREASED GLUCOSE; Start 12/21/16 at 09:30 Dextrose (D50w Syringe) 50 ml Q15M PRN IV DECREASED GLUCOSE; Start 1/21/17 at 09:30 Glucagon (Glucagen) 1 mg Q15M PRN IM DECREASED GLUCOSE; Start 12/21/16 at 09:30 Glucose (Glutose) 15 gm Q15M PRN BUCC[place] DECREASED GLUCOSE; Start 12/21/16 at 09 :30 Levofloxacin (Levaquin) 500 mg DAILY@06 PO Last administered on 12/31/16 05:33 ; Admin Dose 500 MG; Start 12/23/16 at 16:00 Enoxaparin Sodium (Lovenox) 40 mg DAILY SC Last administered on 12/31/16 08:38 ; Admin Dose 40 MG; Start 12/25/16 at 14:30 Prednisone (Prednisone) 40 mg DAILY PO Last administered on 12/31/16 08:08; Admin Dose 40 MG; Start 12/29/16 at 17:00 CHU TINEO Dec 31, 2016 09:56
[2016-12-31] MEDS: metFORMIN 500 MG TAB PO SCH ×2 (15:36→18:00)
[2016-12-31 19:29] VITALS: BP 143/63; RESP 20
[2016-12-31] MEDS: MONTELUKAST 10 MG TAB PO SCH (20:57)
[2017-01-01] MEDS: ALBUTEROL/IPRATROPIUM (NEB) 3 ML AMP HHN SCH ×6 (01:07→20:04)
[2017-01-01] MEDS: ACCUCHECK XX SCH (02:00)
[2017-01-01 05:40] LABS: BASOPHILS % 0.6 % (0.0-2.0); EOSINOPHILS # 0.1 10^3/ul (0.0-0.5); EOSINOPHILS % 0.9 % (0.0-7.0); HEMATOCRIT 39.1 % (37.0-47.0); HEMOGLOBIN 12.7 g/dl (12.0-16.0); LYMPHOCYTES # 1.2 10^3/ul (0.8-2.9); LYMPHOCYTES % 15.2 % (15.0-51.0); MEAN CORPUSCULAR HEMOGLOBIN 25.6 pg (29.0-33.0); MEAN CORPUSCULAR HGB CONC 32.4 g/dl (32.0-37.0); MEAN CORPUSCULAR VOLUME 79.1 fl (82.0-101.0); MEAN PLATELET VOLUME 11.8 fl (7.4-10.4); MONOCYTE # 0.6 10^3/ul (0.3-0.9); MONOCYTES % 7.7 % (0.0-11.0); NEUTROPHIL # 6.1 10^3/ul (1.6-7.5); NEUTROPHILS % 75.6 % (39.0-77.0); PLATELET COUNT 45 10^3/UL (140-440); RED BLOOD COUNT 4.94 10^6/ul (4.20-5.40); RED CELL DISTRIBUTION WIDTH 14.5 % (11.5-14.5); UNCORRECTED WBC 8.1 10^3/ul (4.8-10.8); WHITE BLOOD COUNT 8.1 10^3/ul (4.8-10.8)
[2017-01-01] MEDS: PANTOPRAZOLE (EC) 40 MG TAB PO SCH (05:41)
[2017-01-01] MEDS: LEVOFLOXACIN 500 MG TAB PO SCH (05:41)
[2017-01-01 05:47] LABS: CREATININE 0.6 mg/dl (0.44-1.00)
[2017-01-01 05:48] LABS: CALCIUM 8.5 mg/dl (8.4-10.2)
[2017-01-01 06:07] LABS: CONDITION 1; LH ANALYZER COMMENTS 1
[2017-01-01 07:27] VITALS: BP 125/61; RESP 18
[2017-01-01] MEDS: INSULIN ASPART [NOVOLOG] 3 ML PEN SC SCH ×4 (08:15→20:39)
[2017-01-01] MEDS: MAGNESIUM OXIDE 400 MG TAB PO SCH (08:32)
[2017-01-01] MEDS: SALMETEROL/FLUTICASONE 500/50 INHA INH SCH ×2 (08:32→20:40)
[2017-01-01] MEDS: predniSONE 20 MG TAB PO SCH (08:32)
[2017-01-01] MEDS: ASPIRIN 81 MG TAB PO SCH (08:32)
[2017-01-01] MEDS: NIFEdipine (XL) 30 MG TAB PO SCH ×2 (08:32→20:39)
[2017-01-01] MEDS: ENOXAPARIN 40 MG/0.4 ML SYG SC SCH (08:41)
[2017-01-01] MEDS: INSULIN GLARGINE [LANtus] 3 ML PEN SC SCH (08:43)
--- NOTE | 2017-01-01 10:05 | PDOCDIS ---
Discharge Instructions CONDITION Patient Condition: Stable HOME CARE INSTRUCTIONS: Special Diet: 1800 ADA ACTIVITY: Activity Restrictions: Slowly Increase Activity KAYLEEN MATHEW Jan 01, 2017 10:05
[2017-01-01] MEDS ORDERED: PRED20TA PO (10:09)
[2017-01-01] MEDS ORDERED: PRED10TA PO (10:09)
--- NOTE | 2017-01-01 10:41 | CONS ---
Date/Time of Note Date/Time of Note DATE: 01/01/17 TIME: 10:38 Assessment/Plan Assessment/Plan Additional Assessment/Plan Assessment and recommendations; 1. Patient admitted with severe COPD exacerbation and acute bronchitis as well as flareup of underlying bronchiectasis. Patient is exhibiting slow but gradual clinical improvement. Next 2. Stable diabetes. 3. Stable hypertension. 4. Pancytopenia, likely induced by Lovenox. Next Discontinue Lovenox. Continue other medications. Give the patient a trial of Pulmicort 0.5 mg twice daily via nebulizer. Continue prednisone at current dosing which is 40 mg daily. Consultation Date/Type/Reason Admit Date/Time Dec 20, 2016 at 10:24 24 HR Interval Summary Free Text/Dictation Patient's condition is continually improving. Come to the very mild wheezing. Very scant hemoptysis. General examination; elderly lady, currently in no distress awake and alert. Exam/Review of Systems Vital Signs Vitals Vital Signs Date Time Temp Pulse Resp B/P Pulse Ox O2 Delivery O2 Flow Rate FiO2 01/01/17 07:43 Nasal Cannula 2.0 01/01/17 07:27 98.3 104 18 125/61 98 12/29/16 20:14 28 Intake and Output 12/31/16 12/31/16 01/01/17 15:00 23:00 07:00 Intake Total 1240 ml 360 ml Balance 1240 ml 360 ml Exam HEENT examination; supple neck, no JVD. Pharynx is clear. No neck masses. Chest examination; diminished breath sounds bilaterally with very mild expiratory wheezing. S1-S2 audible. No murmurs. Regular rate and rhythm. Abdomen examination; soft, nontender. No organomegaly. Bowel sounds audible. Extremity examination; no peripheral edema. METALLURGICAL SPECIALIST examination; no focal deficit. Results Result Diagram: 01/01/17 0500 01/01/17 0500 Results 24 hrs Laboratory Tests Test 12/31/16 11:55 12/31/16 17:12 12/31/16 20:55 01/01/17 05:00 Bedside Glucose 111 108 124 Anion Gap 11 Basophils # 0.0 Basophils % 0.6 Blood Morphology Comment Blood Urea Nitrogen 25 H Calcium Level 8.5 Carbon Dioxide Level 33 H Chloride Level 96 L Creatinine 0.60 Eosinophils # 0.1 Eosinophils % 0.9 Glucose Level 131 Hematocrit 39.1 Hemoglobin 12.7 Lymphocytes # 1.2 Lymphocytes % 15.2 Mean Corpuscular Hemoglobin 25.6 L Mean Corpuscular Hemoglobin Concent 32.4 Mean Corpuscular Volume 79.1 L Mean Platelet Volume 11.8 H Monocytes # 0.6 Monocytes % 7.7 Neutrophils # 6.1 Neutrophils % 75.6 Nucleated Red Blood Cells # 0.0 Nucleated Red Blood Cells % 0.0 Platelet Count 45 #L Potassium Level 4.0 Red Blood Count 4.94 Red Cell Distribution Width 14.5 Sodium Level 136 White Blood Count 8.1 Test 01/01/17 07:56 Bedside Glucose 108 Medications Medications Current Medications Albuterol/ Ipratropium (Duoneb) 3 ml Q4 HHN Last administered on 01/01/17 04:58 ; Admin Dose 3 ML; Start 12/20/16 at 13:00 Aspirin (Aspirin) 81 mg DAILY PO Last administered on 01/01/17 08:32; Admin Dose 81 MG; Start 12/21/16 at 09:00 Magnesium Oxide (Mag-Ox 400) 400 mg DAILY PO Last administered on 01/01/17 08: 32; Admin Dose 400 MG; Start 12/21/16 at 09:00 Montelukast Sodium (Singulair) 10 mg QHS PO Last administered on 12/31/16 20: 57; Admin Dose 10 MG; Start 12/20/16 at 21:00 Nifedipine (Procardia Xl) 30 mg BID PO Last administered on 01/01/17 08:32; Admin Dose 30 MG; Start 12/20/16 at 21:00 Salmeterol Xinafoate/ Fluticasone (Advair 500/50 Diskus) 1 inh BID INH Last administered on 01/01/17 08:32; Admin Dose 1 INH; Start 12/20/16 at 21:00 Pantoprazole (Protonix Tab) 40 mg DAILY@06 PO Last administered on 01/01/17 05: 41; Admin Dose 40 MG; Start 12/21/16 at 06:00 Ondansetron HCl (Zofran Inj) 4 mg Q6H PRN IV NAUSEA AND/OR VOMITING; Start at 11:00 Acetaminophen (Tylenol Tab) 650 mg Q6H PRN PO PAIN LEVEL 1-3 OR FEVER; Start at 11:00 Acetaminophen (Tylenol Supp) 650 mg Q6H PRN [place] PAIN LEVEL 1-3 OR FEVER; Start 12/20/16 at 11:00 Acetaminophen/ Hydrocodone Bitart ([place] (5/325)) 1 tab Q6H PRN PO MODERATE PAIN LEVEL 4-6; Start 12/20/16 at 11:00 Acetaminophen/ Hydrocodone Bitart ([place] (5/325)) 2 tab Q6H PRN PO SEVERE PAIN LEVEL 7-10; Start 12/20/16 at 11:00 Morphine Sulfate (morphine) 2 mg Q4H PRN IV SEVERE PAIN LEVEL 7-10; Start 12/20 at 11:00 Docusate Sodium (Colace) 100 mg Q12H PRN PO CONSTIPATION Last administered on 08:45; Admin Dose 100 MG; Start 12/20/16 at 11:00 Magnesium Hydroxide (Milk Of Mag) 30 ml DAILY PRN PO CONSTIPATION Last administered on 12/30/16 20:56; Admin Dose 30 ML; Start 12/20/16 at 11:00 Bisacodyl (Dulcolax Supp) 10 mg DAILY PRN [place] CONSTIPATION Last administered on 12/24/16 14:49; Admin Dose 10 MG; Start 12/20/16 at 11:00 Insulin Glargine (Lantus) 10 unit QAM SC Last administered on 01/01/17 08:43; Admin Dose 10 UNIT; Start 12/21/16 at 10:00 Diagnostic Test (Pha) (Accucheck) 1 ea 02 XX Last administered on 12/31/16 02: 29; Admin Dose 1 EA; Start 12/22/16 at 02:00 Miscellaneous Information 1 ea NOTE XX ; Start 12/21/16 at 09:30 Glucose (Glutose) 15 gm Q15M PRN PO DECREASED GLUCOSE; Start 12/21/16 at 09:30 Glucose (Glutose) 22.5 gm Q15M PRN PO DECREASED GLUCOSE; Start 12/21/16 at 09: 30 Dextrose (D50w Syringe) 25 ml Q15M PRN IV DECREASED GLUCOSE; Start 12/21/16 at 09:30 Dextrose (D50w Syringe) 50 ml Q15M PRN IV DECREASED GLUCOSE; Start 12/21/16 at 09:30 Glucagon (Glucagen) 1 mg Q15M PRN IM DECREASED GLUCOSE; Start 12/21/16 at 09:30 Glucose (Glutose) 15 gm Q15M PRN BUCCAL DECREASED GLUCOSE; Start 12/21/16 at 09 :30 Levofloxacin (Levaquin) 500 mg DAILY@06 PO Last administered on 01/01/17 05:41 ; Admin Dose 500 MG; Start 12/23/16 at 16:00 Prednisone (Prednisone) 40 mg DAILY PO Last administered on 01/01/17 08:32; Admin Dose 40 MG; Start 12/29/16 at 17:00 CHU TINEO Jan 01, 2017 10:40
--- NOTE | 2017-01-01 10:55 | DS ---
DATE OF ADMISSION: 12/20/2016 DATE OF DISCHARGE: 01/01/2017 A 66-year-old female who was originally admitted on 12/20/2016, being discharged home on 01/01/2017. HOSPITAL COURSE: The patient came in with shortness of breath and hemoptysis. She was found with a COPD exacerbation. She was seen by pulmonary team during this hospital stay. She was also found with a flareup of acute bronchitis as well, which was thought to be mainly due to underlying bronchi ectasis from a prior history of pulmonary tuberculosis. In any event, she was also given antibiotic s. Her respiratory culture did grow achromobacter species, but otherwise normal respiratory cris. Her AFB tests were negative x3. She was ruled out for active TB. Over the course of her hospital stay, her hemoptysis symptoms slowly improved and her shortness of breath symptoms slowly improved. She was able to ambulate and tolerate a p.o. diet and she will be discharged home today in improve d condition. DISCHARGE MEDICATIONS: She will be sent with the following medications: 1. Lantus 10 units subq q.a.m. 2. Levaquin 500 mg daily for 5 more days. 3. Prednisone taper 20 mg p.o. for 3 days, then 10 mg p.o. for 3 days and stop. 5. She will continue Combivent inhaled q.i.d. 6. Aspirin 81 mg daily. 7. Calcium citrate/ vitamin D 200/250 one tab b.i.d. 8. Nexium 20 mg daily. 9. Magnesium oxide 400 mg daily. 10. Metformin 1000 mg with lunch and dinner. 11. Singulair 10 mg at bedtime. 12. Procardia-XL 30 mg b.i.d. 13. Advair 500/50 inhaled b.i.d. 14. Spiriva 18 mcg, 1 capsule inhaled daily. 12. Theophylline 200 mg at bedtime. She will need to follow with regular doctor in the clinic in the next 1 to 2 weeks. FINAL DIAGNOSES: 1. Shortness of breath and hemoptysis secondary to combination of chronic obstructive pulmonary dis ease, acute bronchitis and upper respiratory infection, now improved. 2. History of prior pulmonary tuberculosis. Ruled out for active TB on this admission. 3. Acute bronchitis with achromobacter species, improved. 4. Diabetes type 2 with A1c of 6.4, stable. 5. Chronic hepatitis C, liver cirrhosis with thrombocytopenia, stable. 6. History of chronic respiratory failure on home O2. 7. History of CHF with grade I diastolic dysfunction. 8. Gastroesophageal reflux disease. Time spent discharging patient 45 minutes. Dictated By: KAYLEEN HERRON Conf#: [id number] DID#: [id number]
[2017-01-01] MEDS: metFORMIN 500 MG TAB PO SCH ×2 (12:21→17:43)
[2017-01-01 19:22] VITALS: BP 136/64; RESP 18
[2017-01-01] MEDS: BUDESONIDE (NEB) 0.5MG/2ML AMP HHN SCH (20:00)
[2017-01-01] MEDS: MONTELUKAST 10 MG TAB PO SCH (20:39)
[2017-01-02] MEDS: ALBUTEROL/IPRATROPIUM (NEB) 3 ML AMP HHN SCH ×6 (00:18→20:31)
[2017-01-02] MEDS: ACCUCHECK XX SCH (02:00)
[2017-01-02 05:40] LABS: BASOPHILS % 0.1 % (0.0-2.0); EOSINOPHILS # 0.1 10^3/ul (0.0-0.5); EOSINOPHILS % 1.1 % (0.0-7.0); HEMOGLOBIN 12.3 g/dl (12.0-16.0); LYMPHOCYTES # 1.1 10^3/ul (0.8-2.9); LYMPHOCYTES % 13.7 % (15.0-51.0); MEAN CORPUSCULAR HEMOGLOBIN 25.6 pg (29.0-33.0); MEAN CORPUSCULAR HGB CONC 32.3 g/dl (32.0-37.0); MEAN CORPUSCULAR VOLUME 79.3 fl (82.0-101.0); MEAN PLATELET VOLUME 11.2 fl (7.4-10.4); MONOCYTE # 0.7 10^3/ul (0.3-0.9); MONOCYTES % 9.2 % (0.0-11.0); NEUTROPHIL # 5.9 10^3/ul (1.6-7.5); NEUTROPHILS % 75.9 % (39.0-77.0); PLATELET COUNT 31 10^3/UL (140-440); RED CELL DISTRIBUTION WIDTH 14.2 % (11.5-14.5); UNCORRECTED WBC 7.8 10^3/ul (4.8-10.8); WHITE BLOOD COUNT 7.8 10^3/ul (4.8-10.8)
[2017-01-02 06:17] LABS: POTASSIUM 3.7 mmol/L (3.5-5.1)
[2017-01-02] MEDS: PANTOPRAZOLE (EC) 40 MG TAB PO SCH (06:18)
[2017-01-02] MEDS: LEVOFLOXACIN 500 MG TAB PO SCH (06:18)
[2017-01-02 06:19] LABS: CREATININE 0.49 mg/dl (0.44-1.00)
[2017-01-02 06:21] LABS: CALCIUM 8.5 mg/dl (8.4-10.2)
[2017-01-02 06:57] LABS: CONDITION 1; LH ANALYZER COMMENTS 1
[2017-01-02 07:13] VITALS: BP 129/62; RESP 18
[2017-01-02] MEDS: ASPIRIN 81 MG TAB PO SCH (09:02)
[2017-01-02] MEDS: MAGNESIUM OXIDE 400 MG TAB PO SCH (09:02)
[2017-01-02] MEDS: SALMETEROL/FLUTICASONE 500/50 INHA INH SCH ×2 (09:02→20:29)
[2017-01-02] MEDS: NIFEdipine (XL) 30 MG TAB PO SCH ×2 (09:03→20:28)
[2017-01-02] MEDS: predniSONE 20 MG TAB PO SCH (09:03)
--- NOTE | 2017-01-02 09:13 | DS ---
Date/Time of Note Date/Time of Note DATE: 01/02/17 TIME: 09:13 Discharge Summary Admission/Discharge Info Admit Date/Time Dec 20, 2016 at 10:24 Discharge Date/Time Final Diagnosis 1. Shortness of breath and hemoptysis secondary to combination of chronic obstructive pulmonary disease, acute bronchitis and upper respiratory infection , now improved. 2. History of prior pulmonary tuberculosis. Ruled out for active TB on this admission. 3. Acute bronchitis with achromobacter species, improved. 4. Diabetes type 2 with A1c of 6.4, stable. 5. Chronic hepatitis C, liver cirrhosis with thrombocytopenia, stable. 6. History of chronic respiratory failure on home O2. 7. History of CHF with grade I diastolic dysfunction. 8. Gastroesophageal reflux disease. Time spent discharging patient 45 minutes. Patient Condition: Stable Hospital Course The patient came in with shortness of breath and hemoptysis. She was found with a COPD exacerbation. She was seen by pulmonary team during this hospital stay. She was also found with a flareup of acute bronchitis as well, which was thought to be mainly due to underlying bronchiectasis from a prior history of pulmonary tuberculosis. In any event, she was also given antibiotics. Her respiratory culture did grow achromobacter species, but otherwise normal respiratory cris. Her AFB tests were negative x3. She was ruled out for active TB. Over the course of her hospital stay, her hemoptysis symptoms slowly improved and her shortness of breath symptoms slowly improved. She was able to ambulate and tolerate a p.o. diet and she will be discharged home today in improved condition. DISCHARGE MEDICATIONS: She will be sent with the following medications: 1. Lantus 10 units subq q.a.m. 2. Levaquin 500 mg daily for 5 more days. 3. Prednisone taper 20 mg p.o. for 3 days, then 10 mg p.o. for 3 days and stop. 5. She will continue Combivent inhaled q.i.d. 6. Aspirin 81 mg daily. 7. Calcium citrate/ vitamin D 200/250 one tab b.i.d. 8. Nexium 20 mg daily. 9. Magnesium oxide 400 mg daily. 10. Metformin 1000 mg with lunch and dinner. 11. Singulair 10 mg at bedtime. 12. Procardia-XL 30 mg b.i.d. 13. Advair 500/50 inhaled b.i.d. 14. Spiriva 18 mcg, 1 capsule inhaled daily. 12. Theophylline 200 mg at bedtime. She will need to follow with regular doctor in the clinic in the next 1 to 2 weeks. Home Meds Active Scripts Prednisone (Prednisone) 10 Mg Tab, 10 MG PO DAILY for 3 Days, TAB Prov:KAYLEEN MATHEW S. 01/01/17 Prednisone* (Prednisone*) 20 Mg Tab, 20 MG PO DAILY for 3 Days, TAB Prov:KAYLEEN MATHEW S. 01/01/17 Insulin Glargine* (Lantus*) 100 Unit/Ml Soln, 10 UNIT SC QAM for 14 Days Prov:PADMINI NGUYENGENA M. 12/29/16 Levofloxacin* (Levaquin*) 500 Mg Tablet, 500 MG PO DAILY@06 for 5 Days, TAB Prov:PADMINI NGUYENGENA M. 12/29/16 Nifedipine (Procardia Xl) 30 Mg Tab.er.24, 30 MG PO BID, #60 TAB Prov:TATI SANCHEZ MD 08/30/16 Albuterol/Ipratropium* (Combivent Respimat*) 20-100 Mcg/Inh - 4 Gm Aer.w.adap, 1 PUFF INHALATION QID, #1 INHALER Prov:TATI SANCHEZ MD 08/30/16 [Theophylline (Sr)] 200 MG TABSR No Conflict Check, 200 MG PO QHS, #30 Prov:TATI SANCHEZ MD 08/30/16 Aspirin (Aspirin) 81 Mg Chew, 81 MG PO DAILY, #30 TAB Prov:TATI SANCHEZ MD 08/30/16 Magnesium Oxide* (Magnesium Oxide*) 400 Mg Tablet, 400 MG PO DAILY, #30 TAB Prov:TATI SANCHEZ MD 08/30/16 Metformin* (Glucophage*) 500 Mg Tab, 1000 MG PO WITH LUNCH DINNER, #60 TAB Prov:TATI SANCHEZ MD 08/30/16 Esomeprazole Mag Trihydrate (Nexium) 40 Mg Capsule.dr, 40 MG PO DAILY, #30 CAP Prov:TATI SANCHEZ MD 08/30/16 Tiotropium Anderson* (Spiriva*) 18 Mcg Cap.w.dev, 1 CAP INHALATION DAILY, #30 CAP Prov:TATI SANCHEZ MD 08/30/16 Salmeterol Xinaf-Fluticasone* (Advair*) 500/50 Diskus Inhaler, 1 INH INHALATION BID, #1 INHALER Prov:TATI SANCHEZ MD 08/30/16 Calcium Citrate/Vitamin D (Citracal-Vitamin D 200 MG-250) 1 Each Tablet, 1 EACH PO BID, #60 TAB Prov:TATI SANCHEZ MD 08/30/16 Montelukast Sodium* (Singulair*) 10 Mg Tablet, 10 MG PO QHS, #30 TAB Prov:TATI SANCHEZ MD 08/30/16 Discontinued Scripts Prednisone* (Prednisone*) 20 Mg Tab, 20 MG PO BID, #20 TAB Prov:TATI SANCHEZ MD 08/30/16 Pending Labs Laboratory Tests Test 01/01/17 11:56 01/01/17 17:36 01/01/17 20:37 01/02/17 04:58 Bedside Glucose 112mg/dL (70-220) 130mg/dL (70-220) 112mg/dL (70-220) Anion Gap 11 (8-16) Basophils # Pending Basophils % Pending Blood Morphology Comment Blood Urea Nitrogen 20mg/dl (7-20) Calcium Level 8.5mg/dl (8.4-10.2) Carbon Dioxide Level 31mmol/L (21-31) Chloride Level 97mmol/L (97-110) Creatinine 0.49mg/dl (0.44-1.00) Eosinophils # Pending Eosinophils % Pending Glucose Level 224mg/dl (70-220) Hematocrit 38.0% (37.0-47.0) Hemoglobin 12.3g/dl (12.0-16.0) Lymphocytes # Pending Lymphocytes % Pending Mean Corpuscular Hemoglobin 25.6pg (29.0-33.0) Mean Corpuscular Hemoglobin Concent 32.3g/dl (32.0-37.0) Mean Corpuscular Volume 79.3fl (82.0-101.0) Mean Platelet Volume 11.2fl (7.4-10.4) Monocytes # Pending Monocytes % Pending Neutrophils # Pending Neutrophils % Pending Nucleated Red Blood Cells # Pending Nucleated Red Blood Cells % Pending Platelet Count 3110^3/UL (140-440) Potassium Level 3.7mmol/L (3.5-5.1) Red Blood Count 4.8010^6/ul (4.20-5.40) Red Cell Distribution Width 14.2% (11.5-14.5) Sodium Level 135mmol/L (135-144) White Blood Count 7.810^3/ul (4.8-10.8) Test 01/02/17 07:28 Bedside Glucose 162mg/dL (70-220) KAYLEEN MATHEW Jan 02, 2017 09:13
[2017-01-02] MEDS: INSULIN ASPART [NOVOLOG] 3 ML PEN SC SCH ×4 (09:14→20:28)
[2017-01-02] MEDS: INSULIN GLARGINE [LANtus] 3 ML PEN SC SCH (09:15)
[2017-01-02 09:20] LABS: ANISOCYTOSIS 1+; HYPOCHROMASIA 2+
[2017-01-02 09:21] LABS: PLATELET ESTIMATE PLT APPEAR DECREASED
[2017-01-02] MEDS: BUDESONIDE (NEB) 0.5MG/2ML AMP HHN SCH ×2 (09:54→20:31)
[2017-01-02] MEDS: metFORMIN 500 MG TAB PO SCH ×2 (11:32→17:16)
--- NOTE | 2017-01-02 11:45 | CONS ---
Date/Time of Note Date/Time of Note DATE: 01/02/17 TIME: 11:42 Assessment/Plan Assessment/Plan Additional Assessment/Plan Assessment and recommendation; 1. Patient admitted with severe COPD exacerbation and bronchiectasis with bronchiectasis. 2. Persistent mild hemoptysis. Next 3. Thrombocytopenia 4. Hypothyroidism next 5. Diabetes Continue current treatment. Patient can be discharged home on continuation of prednisone at 30 mg daily with further tapering as dictated by her clinical status. At this time I would recommend discontinuation of Levaquin. In Advair at current dosing as well as Pulmicort. DuoNeb 4 times daily. Consultation Date/Type/Reason Admit Date/Time Dec 20, 2016 at 10:24 24 HR Interval Summary Free Text/Dictation Patient condition is stable. Still complains of cough off and on with occasional hemoptysis. Mixed with slightly yellowish sputum. Patient still has persistent wheezing. Overall however she is feeling better. General examination; elderly lady, awake alert currently in no distress. Exam/Review of Systems Vital Signs Vitals Vital Signs Date Time Temp Pulse Resp B/P Pulse Ox O2 Delivery O2 Flow Rate FiO2 01/02/17 09:55 97 20 97 Nasal Cannula 2.0 28 01/02/17 07:13 99.0 129/62 Intake and Output 01/01/17 01/01/17 01/02/17 15:00 23:00 07:00 Intake Total 1200 ml 920 ml Balance 1200 ml 920 ml Exam HEENT examination; supple neck, edentulous. No neck masses. No thyromegaly. Chest examination; scattered crackles bilaterally with mild expiratory wheezing. S1-S2 audible no murmurs. Regular rate and rhythm. Abdomen examination soft, bowel sounds audible. No organomegaly. Extremity examination; no peripheral edema. HEALTH SAFETY AND ENVIRONMENT MANAGER examination; no focal deficit. Results Result Diagram: 01/02/17 0458 01/02/17 0458 Results 24 hrs Laboratory Tests Test 01/01/17 11:56 01/01/17 17:36 01/01/17 20:37 01/02/17 04:58 Bedside Glucose 112 130 112 Anion Gap 11 Anisocytosis 1+ Basophils # 0.0 Basophils % 0.1 Blood Morphology Comment Blood Urea Nitrogen 20 Calcium Level 8.5 Carbon Dioxide Level 31 Chloride Level 97 Creatinine 0.49 Eosinophils # 0.1 Eosinophils % 1.1 Glucose Level 224 H Hematocrit 38.0 Hemoglobin 12.3 Hypochromasia 2+ Lymphocytes # 1.1 Lymphocytes % 13.7 L Mean Corpuscular Hemoglobin 25.6 L Mean Corpuscular Hemoglobin Concent 32.3 Mean Corpuscular Volume 79.3 L Mean Platelet Volume 11.2 H Monocytes # 0.7 Monocytes % 9.2 Neutrophils # 5.9 Neutrophils % 75.9 Nucleated Red Blood Cells # 0.0 Nucleated Red Blood Cells % 0.0 Platelet Count 31 #L Platelet Estimate PLT APPEAR DECREASED Potassium Level 3.7 Red Blood Count 4.80 Red Cell Distribution Width 14.2 Sodium Level 135 White Blood Count 7.8 Test 01/02/17 07:28 01/02/17 11:33 Bedside Glucose 162 102 Medications Medications Current Medications Albuterol/ Ipratropium (Duoneb) 3 ml Q4 HHN Last administered on 01/02/17 09:54 ; Admin Dose 3 ML; Start 12/20/16 at 13:00 Aspirin (Aspirin) 81 mg DAILY PO Last administered on 01/02/17 09:02; Admin Dose 81 MG; Start 12/21/16 at 09:00 Magnesium Oxide (Mag-Ox 400) 400 mg DAILY PO Last administered on 01/02/17 09: 02; Admin Dose 400 MG; Start 12/21/16 at 09:00 Montelukast Sodium (Singulair) 10 mg QHS PO Last administered on 01/01/17 20:39 ; Admin Dose 10 MG; Start 12/20/16 at 21:00 Nifedipine (Procardia Xl) 30 mg BID PO Last administered on 01/02/17 09:03; Admin Dose 30 MG; Start 12/20/16 at 21:00 Salmeterol Xinafoate/ Fluticasone (Advair 500/50 Diskus) 1 inh BID INH Last administered on 01/02/17 09:02; Admin Dose 1 INH; Start 12/20/16 at 21:00 Pantoprazole (Protonix Tab) 40 mg DAILY@06 PO Last administered on 01/02/17 06: 18; Admin Dose 40 MG; Start 12/21/16 at 06:00 Ondansetron HCl (Zofran Inj) 4 mg Q6H PRN IV NAUSEA AND/OR VOMITING; Start at 11:00 Acetaminophen (Tylenol Tab) 650 mg Q6H PRN PO PAIN LEVEL 1-3 OR FEVER; Start at 11:00 Acetaminophen (Tylenol Supp) 650 mg Q6H PRN ME PAIN LEVEL 1-3 OR FEVER; Start 12/20/16 at 11:00 Acetaminophen/ Hydrocodone Bitart ([place] (5/325)) 1 tab Q6H PRN PO MODERATE PAIN LEVEL 4-6; Start 12/20/16 at 11:00 Acetaminophen/ Hydrocodone Bitart ([place] (5/325)) 2 tab Q6H PRN PO SEVERE PAIN LEVEL 7-10; Start 12/20/16 at 11:00 Morphine Sulfate (morphine) 2 mg Q4H PRN IV SEVERE PAIN LEVEL 7-10; Start 12/20 at 11:00 Docusate Sodium (Colace) 100 mg Q12H PRN PO CONSTIPATION Last administered on 08:45; Admin Dose 100 MG; Start 12/20/16 at 11:00 Magnesium Hydroxide (Milk Of Mag) 30 ml DAILY PRN PO CONSTIPATION Last administered on 12/30/16 20:56; Admin Dose 30 ML; Start 12/20/16 at 11:00 Bisacodyl (Dulcolax Supp) 10 mg DAILY PRN ME CONSTIPATION Last administered on 12/24/16 14:49; Admin Dose 10 MG; Start 12/20/16 at 11:00 Insulin Glargine (Lantus) 10 unit QAM SC Last administered on 01/02/17 09:15; Admin Dose 10 UNIT; Start 12/21/16 at 10:00 Diagnostic Test (Pha) (Accucheck) 1 ea 02 XX Last administered on 12/31/16 02: 29; Admin Dose 1 EA; Start 12/22/16 at 02:00 Miscellaneous Information 1 ea NOTE XX ; Start 12/21/16 at 09:30 Glucose (Glutose) 15 gm Q15M PRN PO DECREASED GLUCOSE; Start 12/21/16 at 09:30 Glucose (Glutose) 22.5 gm Q15M PRN PO DECREASED GLUCOSE; Start 12/21/16 at 09: 30 Dextrose (D50w Syringe) 25 ml Q15M PRN IV DECREASED GLUCOSE; Start 12/21/16 at 09:30 Dextrose (D50w Syringe) 50 ml Q15M PRN IV DECREASED GLUCOSE; Start 12/21/16 at 09:30 Glucagon (Glucagen) 1 mg Q15M PRN IM DECREASED GLUCOSE; Start 12/21/16 at 09:30 Glucose (Glutose) 15 gm Q15M PRN BUCCAL DECREASED GLUCOSE; Start 12/21/16 at 09 :30 Levofloxacin (Levaquin) 500 mg DAILY@06 PO Last administered on 01/02/17 06:18 ; Admin Dose 500 MG; Start 12/23/16 at 16:00 Prednisone (Prednisone) 40 mg DAILY PO Last administered on 01/02/17 09:03; Admin Dose 40 MG; Start 12/29/16 at 17:00 CHU TINEO Jan 02, 2017 11:45
[2017-01-02 19:37] VITALS: BP 120/60; RESP 18
[2017-01-02 19:42] VITALS: BP 127/78; RESP 18
[2017-01-02] MEDS: MONTELUKAST 10 MG TAB PO SCH (20:28)
== END 2017-01-02 23:58 | disposition home or self-care (01) | DRG 190 ==
LOC: E/R 08:24 → TEL 10:24 → MS2 12-26 20:30
PROVIDERS: ADMIT Internal Medicine; ATTEND Internal Medicine
PROC: 5A09357 Assistance with Respiratory Ventilation, Less than 24 Consecutive Hours, Continuous Positive Airway Pressure (ICD-10-PCS; principal; 2016-12-20)
DX: J44.0 Chronic obstructive pulmonary disease with (acute) lower respiratory infection (principal); J96.21 Acute and chronic respiratory failure with hypoxia; K74.69 Other cirrhosis of liver; E87.1 Hypo-osmolality and hyponatremia; D69.6 Thrombocytopenia, unspecified; I11.0 Hypertensive heart disease with heart failure; I50.30 Unspecified diastolic (congestive) heart failure; J96.10 Chronic respiratory failure, unspecified whether with hypoxia or hypercapnia; J20.9 Acute bronchitis, unspecified; J44.1 Chronic obstructive pulmonary disease with (acute) exacerbation; Z86.11 Personal history of tuberculosis; E11.9 Type 2 diabetes mellitus without complications; B19.20 Unspecified viral hepatitis C without hepatic coma; K21.9 Gastro-esophageal reflux disease without esophagitis
CPT/HCPCS: 36415; 71010; 71250; 80048; 80053; 80061; 81003; 82962; 83036; 83605; 83735; 84436; 84443; 84479; 84484; 85025; 85610; 85730; 87040; 87070; 87086; 87116; 90686; 93005; 94640; 94660; 94664; 96374; 97110; 97116; 97162; 97530; J1650; J1815; J1956; J2920; J2930; J3105; J3475; J7030; J7512

== ENCOUNTER 2018-11-06 18:25 | Inpatient (IN) | END 2018-11-16 17:15 | disposition home or self-care (01) | DRG 190 ==

== ENCOUNTER 2019-05-19 13:42 | Inpatient (IN) | payer BC ==
[~2019-05-19] VITALS: Ht 152.4 cm; Wt 79.2 kg
[~2019-05-19 13:42] MED LIST changes: +ASPI-831 PO; -ASPI81TA3 PO; -IPRA4AER INHALATION; +LANT3I SC; +METF-849 PO; -METF500T4 PO; -PRED20TA PO; +PRED5TAB PO
[2019-05-19 17:48] VITALS: BP 147/62; PULSE 86; RESP 20
[2019-05-19] MEDS ORDERED: LORAZEPAM 2 MG INJ IV PRN (18:30)
[2019-05-19] MEDS ORDERED: ACETAMINOPHEN 325 MG TAB PO PRN (18:30)
[2019-05-19] MEDS ORDERED: NITROGLYCERIN (SL) 0.4 MG TAB SL PRN (18:30)
[2019-05-19] MEDS ORDERED: hydrALAzine 20 MG INJ IV PRN (18:30)
[2019-05-19] MEDS ORDERED: morphine 2 MG INJ IV PRN (18:30)
[2019-05-19] MEDS ORDERED: DOCUSATE SODIUM 100 MG CAP PO PRN (18:30)
[2019-05-19] MEDS ORDERED: GLUCAGON 1 MG INJ IM PRN (18:30)
[2019-05-19] MEDS ORDERED: MAGNESIUM HYDROXIDE 30ML CUP PO PRN (18:30)
[2019-05-19] MEDS ORDERED: GLUCOSE GEL 15 GRAM TUBE PO PRN ×2 (18:30)
[2019-05-19] MEDS ORDERED: ONDANSETRON 4 MG INJ IV PRN (18:30)
[2019-05-19] MEDS ORDERED: HYDROCODONE/APAP (5/325) TAB PO PRN (18:30)
[2019-05-19] MEDS ORDERED: DEXTROSE 50% 50 ML SYRINGE IV PRN ×2 (18:30)
[2019-05-19] MEDS ORDERED: GLUCOSE GEL 15 GRAM TUBE BUCCAL PRN (18:30)
[2019-05-19] MEDS ORDERED: NACL 0.9% 3 ML SYG IV SCH (18:30)
[2019-05-19] MEDS: METHYLPREDNISOLONE 125 MG INJ IV SCH (18:55)
[2019-05-19] MEDS: SOD CHLORIDE 0.45% 1,000 ML IV SCH (18:55)
[2019-05-19] MEDS ORDERED: TIOT18CA INHALATION (19:45)
[2019-05-19] MEDS ORDERED: MONT10TA21 PO (19:45)
[2019-05-19] MEDS ORDERED: LEVO25TA PO (19:45)
[2019-05-19] MEDS ORDERED: METF-849 PO ×2 (19:45)
[2019-05-19] MEDS ORDERED: RAMI2.5C31 PO (19:45)
[2019-05-19] MEDS ORDERED: LOSA25TA2 PO (19:45)
[2019-05-19] MEDS ORDERED: GABA600T PO (19:45)
--- NOTE | 2019-05-19 19:48 | HP ---
DATE OF ADMISSION: 05/19/2019 IDENTIFICATION: This is a 69-year-old female. CHIEF COMPLAINT: Shortness of breath, transferred from outside hospital. HISTORY OF PRESENT ILLNESS: A 69-year-old female with past medical history based on records of diabe nayan, hypertension, COPD, diabetic peripheral neuropathy, hypothyroidism, possible coronary artery dis ease, GERD, who was transferred over due to insurance purposes from an outside hospital after being a dmitted over there with shortness of breath and signs of COPD exacerbation. It looks like patient gonzalez s a history of bullous emphysema found on chest x-ray, resulting from secondhand smoke exposure from her who earlier this year. She started having shortness of breath symptoms a few days prior to admission and also chest pressure. When she arrived at the outside hospital, she was given IV steroids and breathing treatments and she is still having some wheezing presently. Denies a ny upper or lower GI bleeding. No nausea or vomiting. No fevers or chills. No diarrhea or constipa tion. PAST MEDICAL HISTORY: As stated above. ALLERGIES: ANESTHESIA, CONTRAST, AND DYE. FAMILY HISTORY: Noncontributory. HOME MEDICATIONS: 1. Neurontin 600 mg b.i.d. 2. Cozaar 25 mg daily. 3. Metformin 500 mg b.i.d. 4. Singulair 10 mg daily. 5. Altace 2.5 mg daily. 6. Synthroid 25 mcg daily. 7. Spiriva 18 mcg daily. 8. Symbicort 2 puffs b.i.d. 9. Advair inhaled b.i.d. 10. Mucinex 600 mg b.i.d. SOCIAL HISTORY: . She herself is nonsmoker, nondrinker. PAST SURGICAL HISTORY: Unknown. PHYSICAL EXAMINATION: VITAL SIGNS: T-max 97.3, pulse 86, respirations 20, blood pressure 147/60, saturating at 96% on 3 L nasal cannula. GENERAL: Patient is sitting up in bed, just finishing food, no acute distress. HEENT: Pupils equal, round, reactive to light. Extraocular muscles intact. NECK: Supple, no thyromegaly. LUNGS: Expiratory wheezes heard, left greater than right lung areas. CARDIOVASCULAR: S1, S2 heard. No rubs or gallops. ABDOMEN: Soft, nontender, nondistended. Normal bowel sounds. No rebound or guarding. MUSCULOSKELETAL: No lower extremity edema bilaterally. NEUROLOGIC: No focal deficits. LABORATORY DATA: From today are still pending. IMAGING: She had a chest x-ray performed at the outside hospital that shows severe bullous changes i n the mid and upper lung morgan bilaterally but no acute infiltrates or congestion. No significant c hanges from 11/05/2018. ASSESSMENT AND PLAN: A 69-year-old female with history of bronchiectasis, chronic obstructive pulmon vida disease, bullous emphysematous changes, diabetes, hypertension, gastroesophageal reflux disease, peripheral neuropathy, hypothyroidism, who was transferred over due to insurance purposes with shortn ess of breath, signs of chronic obstructive pulmonary disease exacerbations. 1. Shortness of breath and chest pressure, again symptoms likely secondary to chronic obstructive pu lmonary disease exacerbation. Continue breathing treatments q.4 hours and IV steroids and low-dose I V antibiotics. Follow up TSH, A1c, and lipid panel. Consider PT and OT consults. 2. Diabetes. Follow up A1c. Continue sliding scale insulin. 3. Hypertension. Continue current blood pressure medicines. Blood pressure stable at present. 4. History of gastroesophageal reflux disease. PPI. 5. History of diabetic peripheral neuropathy. Consider restarting the patient's home gabapentin. 6. History of hypothyroidism. Follow up thyroid panel. Continue levothyroxine. Dictated By: KAYLEEN LIZ/ANGE Conf#: [id number] DID#: [id number] CC: FAHEEM HERBERT MD;*End*
[2019-05-19] MEDS ORDERED: BUDE6HFA INHALATION (19:49)
[2019-05-19] MEDS ORDERED: GUAI600T23 PO (19:49)
[2019-05-19 20:00] VITALS: PULSE 82
[2019-05-19] MEDS ORDERED: LEVOFLOXACIN 750MG/D5W (PMX) 150 ML IVPB SCH (20:00)
[2019-05-19] MEDS: ALBUTEROL/IPRATROPIUM (NEB) 3 ML AMP HHN SCH ×2 (21:00→23:17)
[2019-05-19] MEDS: INSULIN ASPART [NOVOLOG] 3 ML PEN SC SCH (21:00)
[2019-05-19] MEDS: HEPARIN 5,000 UNIT/1 ML VIAL SC SCH (21:28)
[2019-05-20] VITALS (10 sets, daily range): BP systolic 115–151; BP diastolic 61–67; PULSE 68–94; RESP 17–22
[2019-05-20] MEDS: METHYLPREDNISOLONE 125 MG INJ IV SCH ×5 (00:15→23:26)
[2019-05-20] MEDS: INSULIN ASPART [NOVOLOG] 3 ML PEN SC SCH ×6 (00:57→21:56)
[2019-05-20] MEDS: ACCU-CHEK XX SCH (02:00)
[2019-05-20] MEDS: ALBUTEROL/IPRATROPIUM (NEB) 3 ML AMP HHN SCH ×5 (05:28→20:11)
[2019-05-20] MEDS: SOD CHLORIDE 0.45% 1,000 ML IV SCH (08:02)
[2019-05-20] MEDS: HEPARIN 5,000 UNIT/1 ML VIAL SC SCH (08:14)
--- NOTE | 2019-05-20 11:16 | PN ---
Date/Time of Note Date/Time of Note DATE: 05/20/19 TIME: 11:11 Assessment/Plan VTE Prophylaxis Risk score (from Ns)>0 risk: 4 SCD applied (from Ns): No SCD contraindicated: other Pharmacological prophylaxis: heparin Assessment/Plan Hospital Course S: Patient still with some shortness of breath symptoms. Seen by physical therapy team earlier today. O: VS - see below PHYSICAL EXAMINATION: GENERAL: Lying in bed, no acute distress HEENT: Pupils equal, round, reactive to light. Extraocular muscles intact. NECK: Supple, no thyromegaly. LUNGS: Positive expiratory wheezes heard, left greater than right lung areas. CARDIOVASCULAR: S1, S2 heard. No rubs or gallops. ABDOMEN: Soft, nontender, nondistended. Normal bowel sounds. No rebound or guarding. MUSCULOSKELETAL: No lower extremity edema bilaterally. NEUROLOGIC: No focal deficits. ASSESSMENT AND PLAN: 69-year-old female with history of bronchiectasis, chronic obstructive pulmonary disease, bullous emphysematous changes, diabetes, hypertension, gastroesophageal reflux disease, peripheral neuropathy, hypothyroidism, who was transferred over due to insurance purposes with shortness of breath, signs of chronic obstructive pulmonary disease exace rbations. 1. Shortness of breath and chest pressure-slowly improving, but still present. Again symptoms secondary to chronic obstructive pulmonary disease exacerbation. - Continue breathing treatments q.4 hours and IV steroids and low-dose IV antibiotics. - Follow up TSH, A1c, and lipid panel. - Continue PT and OT 2. Diabetes A1c was 6.1 - continue sliding scale insulin. 3. Hypertension. Stable - continue current blood pressure medicines. 4. History of gastroesophageal reflux disease- PPI 5. History of diabetic peripheral neuropathy. -Monitor, will restart the patient's home gabapentin. 6. History of hypothyroidism. - Follow up thyroid panel. - Continue levothyroxine. Result Diagram: 05/20/19 0535 05/20/19 0535 Results 24hrs Laboratory Tests Test 05/19/19 18:39 05/19/19 19:11 05/19/19 19:12 05/19/19 21:11 Bedside Glucose 121 139 Thyroid Stimulating 4.730 H Hormone (TSH) Hemoglobin A1c 6.1 H Troponin I < 0.012 Free Thyroxine 0.54 L Test 05/20/19 00:22 05/20/19 04:40 05/20/19 05:35 05/20/19 08:09 Bedside Glucose 215 138 135 White Blood Count 6.5 Red Blood Count 4.61 Hemoglobin 11.4 L Hematocrit 37.5 Mean Corpuscular 81.3 L Volume Mean Corpuscular 24.7 L Hemoglobin Mean Corpuscular 30.4 L Hemoglobin Concent Red Cell 15.4 H Distribution Width Platelet Count 103 L Mean Platelet Volume 12.9 H Immature 0.800 H Granulocytes % Neutrophils % 87.7 H Lymphocytes % 9.3 L Monocytes % 2.2 Eosinophils % 0.0 Basophils % 0.0 Nucleated Red Blood 0.0 Cells % Immature 0.050 H Granulocytes # Neutrophils # 5.7 Lymphocytes # 0.6 L Monocytes # 0.1 L Eosinophils # 0.0 Basophils # 0.0 Nucleated Red Blood 0.0 Cells # Sodium Level 141 Potassium Level 5.2 H Chloride Level 105 Carbon Dioxide Level 29 Anion Gap 7 Blood Urea Nitrogen 29 H Creatinine 0.69 Est Glomerular > 60 Filtrat Rate mL/min Glucose Level 126 Calcium Level 9.7 Phosphorus Level 3.6 Magnesium Level 1.9 Triglycerides Level 60 Cholesterol Level 170 LDL Cholesterol, 103 Calculated HDL Cholesterol 55 Cholesterol/HDL 3.0 Ratio Exam/Review of Systems Exam Vitals Vital Signs Date Temp Pulse Resp B/P (MAP) Pulse Ox O2 O2 Flow FiO2 Time Delivery Rate 05/20/19 86 24 94 Nasal 2.0 08:11 Cannula 05/20/19 98.0 140/63 07:23 (88) Intake and Output 05/19/19 05/19/19 05/20/19 1515:00 23:00 07:00 IntakeIntake Total 200 ml 420 ml BalanceBalance 200 ml 420 ml Results Results 24hrs Laboratory Tests Test 05/19/19 18:39 05/19/19 19:11 05/19/19 19:12 05/19/19 21:11 Bedside Glucose 121 139 Thyroid Stimulating 4.730 H Hormone (TSH) Hemoglobin A1c 6.1 H Troponin I < 0.012 Free Thyroxine 0.54 L Test 05/20/19 00:22 05/20/19 04:40 05/20/19 05:35 05/20/19 08:09 Bedside Glucose 215 138 135 White Blood Count 6.5 Red Blood Count 4.61 Hemoglobin 11.4 L Hematocrit 37.5 Mean Corpuscular 81.3 L Volume Mean Corpuscular 24.7 L Hemoglobin Mean Corpuscular 30.4 L Hemoglobin Concent Red Cell 15.4 H Distribution Width Platelet Count 103 L Mean Platelet Volume 12.9 H Immature 0.800 H Granulocytes % Neutrophils % 87.7 H Lymphocytes % 9.3 L Monocytes % 2.2 Eosinophils % 0.0 Basophils % 0.0 Nucleated Red Blood 0.0 Cells % Immature 0.050 H Granulocytes # Neutrophils # 5.7 Lymphocytes # 0.6 L Monocytes # 0.1 L Eosinophils # 0.0 Basophils # 0.0 Nucleated Red Blood 0.0 Cells # Sodium Level 141 Potassium Level 5.2 H Chloride Level 105 Carbon Dioxide Level 29 Anion Gap 7 Blood Urea Nitrogen 29 H Creatinine 0.69 Est Glomerular > 60 Filtrat Rate mL/min Glucose Level 126 Calcium Level 9.7 Phosphorus Level 3.6 Magnesium Level 1.9 Triglycerides Level 60 Cholesterol Level 170 LDL Cholesterol, 103 Calculated HDL Cholesterol 55 Cholesterol/HDL 3.0 Ratio Medications Medication Current Medications IV Flush (NS 3 ml) 3 ml PER PROTOCOL IV ; Start 05/19/19 at 18:30 Ondansetron HCl (Zofran Inj) 4 mg Q6H PRN IV NAUSEA/VOMITING; Start 05/19/19 at 18:30 Acetaminophen (Tylenol Tab) 650 mg Q6H PRN PO .PAIN 1-3 OR TEMP; Start 05/19/19 at 18:30 Acetaminophen/ Hydrocodone Bitart ([place] (5/325)) 1 tab Q6H PRN PO .MOD PAIN 4- 6; Start 05/19/19 at 18:30 Morphine Sulfate (morphine) 2 mg Q4H PRN IV .SEVERE PAIN 7-10; Start 05/19/19 at 18:30 Docusate Sodium (Colace) 100 mg Q12H PRN PO .CONSTIPATION; Start 05/19/19 at 18:30 Magnesium Hydroxide (Milk Of Mag) 30 ml DAILY PRN PO .CONSTIPATION; Start 05/19/19 at 18:30 Heparin Sodium (Porcine) (Heparin (5000 Units/1ml)) 5,000 unit Q12 SC Last administered on 05/20/19at 08:14; Admin Dose 5,000 UNIT; Start 05/19/19 at 21:00 Sodium Chloride 1,000 ml @ 75 mls/hr [id number] IV Last administered on 05/20/19at 08:02; Admin Dose 75 MLS/HR; Start 05/19/19 at 18:02 Lorazepam (Ativan) 0.5 mg Q6H PRN IV ANXIETY; Start 05/19/19 at 18:30 Albuterol/ Ipratropium (Duoneb) 3 ml Q4H RESP THERAPY HHN Last administered on 05/20/19at 08:01; Admin Dose 3 ML; Start 05/19/19 at 21:00 Levofloxacin/ Dextrose 150 ml @ 100 mls/hr Q24H IVPB Last administered on 05/19/19at 21:00; Admin Dose 100 MLS/HR; Start 05/19/19 at 20:00 Hydralazine HCl (Apresoline) 10 mg Q6H PRN IV ELEVATED BLOOD PRESSURE; Start 05/19/19 at 18:30 Nitroglycerin (Nitroglycerin (Sl Tab) 0.4 Mg) 1 tab Q5M PRN SL ANGINA; Start 05/19/19 at 18:30 Diagnostic Test (Pha) (Accu-Chek) 1 ea 02 XX ; Start 05/20/19 at 02:00 Insulin Aspart (Novolog Insulin Pen) NOVOLOG *MILD* ALGORI... Q4 SC Last administered on 05/20/19at 00:57; Admin Dose 2 UNIT; Start 05/19/19 at 21:00 Methylprednisolone Sodium Succinate (Solu-Medrol) 60 mg Q6 IV Last administered on 05/20/19at 05:31; Admin Dose 60 MG; Start 05/19/19 at 18:30 Miscellaneous Information 1 ea NOTE XX ; Start 05/19/19 at 18:30 Glucose (Glutose) 15 gm Q15M PRN PO DECREASED GLUCOSE; Start 05/19/19 at 18:30 Glucose (Glutose) 22.5 gm Q15M PRN PO DECREASED GLUCOSE; Start 05/19/19 at 18:30 Dextrose (D50w Syringe) 25 ml Q15M PRN IV DECREASED GLUCOSE; Start 05/19/19 at 18:30 Dextrose (D50w Syringe) 50 ml Q15M PRN IV DECREASED GLUCOSE; Start 05/19/19 at 18:30 Glucagon (Glucagen) 1 mg Q15M PRN IM DECREASED GLUCOSE; Start 05/19/19 at 18:30 Glucose (Glutose) 15 gm Q15M PRN BUCCAL DECREASED GLUCOSE; Start 05/19/19 at 18:30 Miscellaneous Information Patients own medicat... BID@ XX ; Start 05/20/19 at 10:00 KAYLEEN MATHEW May 20, 2019 11:16
[2019-05-20] MEDS ORDERED: SODIUM POLYSTYRENE 15 GM KIT (POWDER + SORBITOL) PO ONE (11:30)
[2019-05-20] MEDS: MONTELUKAST 10 MG TAB PO SCH (21:45)
[2019-05-20] MEDS: GUAIFENESIN LA 600 MG TABSR PO SCH (21:46)
[2019-05-20] MEDS: GABAPENTIN 300 MG CAP PO SCH (21:46)
[2019-05-21] MEDS: ALBUTEROL/IPRATROPIUM (NEB) 3 ML AMP HHN SCH ×6 (01:36→20:27)
[2019-05-21] MEDS: ACCU-CHEK XX SCH (02:00)
[2019-05-21] MEDS: INSULIN ASPART [NOVOLOG] 3 ML PEN SC SCH ×4 (02:02→12:50)
[2019-05-21 03:25] VITALS: BP 118/54; PULSE 79; RESP 18
[2019-05-21 06:00] VITALS: BP 147/68; PULSE 72; RESP 18
[2019-05-21] MEDS: METHYLPREDNISOLONE 125 MG INJ IV SCH ×3 (06:16→17:41)
[2019-05-21 07:53] VITALS: BP 147/65; PULSE 71; RESP 17
[2019-05-21] MEDS: LEVOTHYROXINE 25 MCG TAB PO SCH (08:51)
[2019-05-21] MEDS: GABAPENTIN 300 MG CAP PO SCH ×2 (08:51→20:48)
[2019-05-21] MEDS: ASPIRIN 81 MG TAB PO SCH (08:51)
[2019-05-21] MEDS: GUAIFENESIN LA 600 MG TABSR PO SCH ×2 (09:31→20:48)
[2019-05-21] MEDS: MAGNESIUM OXIDE 400 MG TAB PO SCH (09:31)
--- NOTE | 2019-05-21 10:00 | PN ---
Date/Time of Note Date/Time of Note DATE: 05/21/19 TIME: 09:53 Assessment/Plan VTE Prophylaxis Risk score (from Nsg)>0 risk: 4 SCD applied (from Nsg): Yes Pharmacological prophylaxis: other Lines/Catheters IV Catheter Type (from Nrsg): Saline Lock Assessment/Plan Hospital Course S: Patient having some shortness of breath when ambulating, overall slowly improving but still significant. O: VS - see below PHYSICAL EXAMINATION: GENERAL: Lying in bed, no acute distress HEENT: Pupils equal, round, reactive to light. Extraocular muscles intact. NECK: Supple, no thyromegaly. LUNGS: Less expiratory wheezes heard but they are still present, left greater than right lung areas. CARDIOVASCULAR: S1, S2 heard. No rubs or gallops. ABDOMEN: Soft, nontender, nondistended. Normal bowel sounds. No rebound or guarding. MUSCULOSKELETAL: No lower extremity edema bilaterally. NEUROLOGIC: No focal deficits. ASSESSMENT AND PLAN: 69-year-old female with history of bronchiectasis, chronic obstructive pulmonary disease, bullous emphysematous changes, diabetes, hypertension, gastroesophageal reflux disease, peripheral neuropathy, hypothyroidism, who was transferred over due to insurance purposes with mahad rtness of breath, signs of chronic obstructive pulmonary disease exacerbations. 1. Shortness of breath and chest pressure-slowly improving, but still present. Again symptoms secondary to chronic obstructive pulmonary disease exacerbation. -For now continue breathing treatments q.4 hours and IV steroids and low-dose IV antibiotics. -May need to have social services director evaluate patient for possible letter stating that she cannot travel which the medical team will approve of at this time - Continue PT and OT 2. Diabetes A1c was 6.1 - continue sliding scale insulin. 3. Hypertension. Stable - continue current blood pressure medicines. 4. History of gastroesophageal reflux disease- PPI 5. History of diabetic peripheral neuropathy. -Monitor, continue gabapentin. 6. History of hypothyroidism. - Continue levothyroxine. Result Diagram: 05/21/19 0507 05/21/19 0506 Results 24hrs Laboratory Tests Test 05/20/19 12:26 05/20/19 17:13 05/20/19 21:44 05/21/19 01:55 Bedside Glucose 297 H 126 298 H 270 H Test 05/21/19 05:01 05/21/19 05:06 05/21/19 05:07 05/21/19 08:34 Bedside Glucose 225 H 99 Sodium Level 141 Potassium Level 4.3 Chloride Level 103 Carbon Dioxide Level 29 Anion Gap 9 Blood Urea Nitrogen 26 H Creatinine 0.59 Est Glomerular > 60 Filtrat Rate mL/min Glucose Level 144 Calcium Level 9.5 White Blood Count 3.4 #L Red Blood Count 4.74 Hemoglobin 11.6 L Hematocrit 39.0 Mean Corpuscular 82.3 Volume Mean Corpuscular 24.5 L Hemoglobin Mean Corpuscular 29.7 L Hemoglobin Concent Red Cell 15.1 H Distribution Width Platelet Count 100 L Mean Platelet Volume 13.4 H Immature 0.600 H Granulocytes % Neutrophils % 84.6 H Lymphocytes % 11.3 L Monocytes % 3.2 Eosinophils % 0.0 Basophils % 0.3 Nucleated Red Blood 0.0 Cells % Immature 0.020 Granulocytes # Neutrophils # 2.9 Lymphocytes # 0.4 L Monocytes # 0.1 L Eosinophils # 0.0 Basophils # 0.0 Nucleated Red Blood 0.0 Cells # Exam/Review of Systems Exam Vitals Vital Signs Date Temp Pulse Resp B/P (MAP) Pulse Ox O2 O2 Flow FiO2 Time Delivery Rate 05/21/19 97.7 71 17 147/65 98 Nasal 07:53 (92) Cannula 05/21/19 2.0 01:37 Intake and Output 05/20/19 05/20/19 05/21/19 1515:00 23:00 07:00 IntakeIntake Total 250 ml 910 ml BalanceBalance 250 ml 910 ml Results Results 24hrs Laboratory Tests Test 05/20/19 12:26 05/20/19 17:13 05/20/19 21:44 05/21/19 01:55 Bedside Glucose 297 H 126 298 H 270 H Test 05/21/19 05:01 05/21/19 05:06 05/21/19 05:07 05/21/19 08:34 Bedside Glucose 225 H 99 Sodium Level 141 Potassium Level 4.3 Chloride Level 103 Carbon Dioxide Level 29 Anion Gap 9 Blood Urea Nitrogen 26 H Creatinine 0.59 Est Glomerular > 60 Filtrat Rate mL/min Glucose Level 144 Calcium Level 9.5 White Blood Count 3.4 #L Red Blood Count 4.74 Hemoglobin 11.6 L Hematocrit 39.0 Mean Corpuscular 82.3 Volume Mean Corpuscular 24.5 L Hemoglobin Mean Corpuscular 29.7 L Hemoglobin Concent Red Cell 15.1 H Distribution Width Platelet Count 100 L Mean Platelet Volume 13.4 H Immature 0.600 H Granulocytes % Neutrophils % 84.6 H Lymphocytes % 11.3 L Monocytes % 3.2 Eosinophils % 0.0 Basophils % 0.3 Nucleated Red Blood 0.0 Cells % Immature 0.020 Granulocytes # Neutrophils # 2.9 Lymphocytes # 0.4 L Monocytes # 0.1 L Eosinophils # 0.0 Basophils # 0.0 Nucleated Red Blood 0.0 Cells # Medications Medication Current Medications IV Flush (NS 3 ml) 3 ml PER PROTOCOL IV ; Start 05/19/19 at 18:30 Ondansetron HCl (Zofran Inj) 4 mg Q6H PRN IV NAUSEA/VOMITING; Start 05/19/19 at 18:30 Acetaminophen (Tylenol Tab) 650 mg Q6H PRN PO .PAIN 1-3 OR TEMP; Start 05/19/19 at 18:30 Acetaminophen/ Hydrocodone Bitart ([place] (5/325)) 1 tab Q6H PRN PO .MOD PAIN 4- 6; Start 05/19/19 at 18:30 Morphine Sulfate (morphine) 2 mg Q4H PRN IV .SEVERE PAIN 7-10; Start 05/19/19 at 18:30 Docusate Sodium (Colace) 100 mg Q12H PRN PO .CONSTIPATION; Start 05/19/19 at 18:30 Magnesium Hydroxide (Milk Of Mag) 30 ml DAILY PRN PO .CONSTIPATION; Start 05/19/19 at 18:30 Lorazepam (Ativan) 0.5 mg Q6H PRN IV ANXIETY; Start 05/19/19 at 18:30 Albuterol/ Ipratropium (Duoneb) 3 ml Q4H RESP THERAPY HHN Last administered on 05/21/19at 08:17; Admin Dose 3 ML; Start 05/19/19 at 21:00 Hydralazine HCl (Apresoline) 10 mg Q6H PRN IV ELEVATED BLOOD PRESSURE; Start 05/19/19 at 18:30 Nitroglycerin (Nitroglycerin (Sl Tab) 0.4 Mg) 1 tab Q5M PRN SL ANGINA; Start 05/19/19 at 18:30 Diagnostic Test (Pha) (Accu-Chek) 1 ea 02 XX ; Start 05/20/19 at 02:00 Insulin Aspart (Novolog Insulin Pen) NOVOLOG *MILD* ALGORI... Q4 SC Last administered on 05/21/19at 05:18; Admin Dose 3 UNIT; Start 05/19/19 at 21:00 Methylprednisolone Sodium Succinate (Solu-Medrol) 60 mg Q6 IV Last administered on 05/21/19 06:16; Admin Dose 60 MG; Start 05/19/19 at 18:30 Miscellaneous Information 1 ea NOTE XX ; Start 05/19/19 at 18:30 Glucose (Glutose) 15 gm Q15M PRN PO DECREASED GLUCOSE; Start 05/19/19 at 18:30 Glucose (Glutose) 22.5 gm Q15M PRN PO DECREASED GLUCOSE; Start 05/19/19 at 18:30 Dextrose (D50w Syringe) 25 ml Q15M PRN IV DECREASED GLUCOSE; Start 05/19/19 at 18:30 Dextrose (D50w Syringe) 50 ml Q15M PRN IV DECREASED GLUCOSE; Start 05/19/19 at 18:30 Glucagon (Glucagen) 1 mg Q15M PRN IM DECREASED GLUCOSE; Start 05/19/19 at 18:30 Glucose (Glutose) 15 gm Q15M PRN BUCCAL DECREASED GLUCOSE; Start 05/19/19 at 18:30 Miscellaneous Information Patients own medicat... BID@10,16 XX ; Start 05/20/19 at 10:00 Aspirin (Aspirin) 81 mg DAILY PO Last administered on 05/21/19at 08:51; Admin Dose 81 MG; Start 05/21/19 at 09:00 Gabapentin (Neurontin) 600 mg BID PO Last administered on 05/21/19at 08:51; Admin Dose 600 MG; Start 05/20/19 at 21:00 Guaifenesin (Mucinex) 600 mg BID PO Last administered on 05/21/19 09:31; Admin Dose 600 MG; Start 05/20/19 at 21:00 Levothyroxine Sodium (Synthroid) 25 mcg BEFORE BREAKFAST PO Last administered on 05/21/19at 08:51; Admin Dose 25 MCG; Start 05/21/19 at 07:00 Magnesium Oxide (Mag-Ox 400) 400 mg DAILY PO Last administered on 05/21/19at 09:31; Admin Dose 400 MG; Start 05/21/19 at 09:00 Montelukast Sodium (Singulair) 10 mg QHS PO Last administered on 05/20/19at 21:45; Admin Dose 10 MG; Start 05/20/19 at 21:00 KAYLEEN MATHEW May 21, 2019 10:00
[2019-05-21 14:18] VITALS: BP 156/67; PULSE 74; RESP 17
[2019-05-21] MEDS ORDERED: INSULIN ASPART [NOVOLOG] 3 ML PEN SC SCH (17:30)
[2019-05-21] MEDS: Insulin NOVOLOG SS MILD Algorithm (SS with meals and bedtime) SC SCH ×2 (17:38→20:50)
[2019-05-21 20:23] VITALS: BP 142/88; PULSE 73; RESP 18
[2019-05-21] MEDS: MONTELUKAST 10 MG TAB PO SCH (20:48)
[2019-05-22] MEDS: METHYLPREDNISOLONE 125 MG INJ IV SCH ×4 (00:47→17:36)
[2019-05-22] MEDS: ALBUTEROL/IPRATROPIUM (NEB) 3 ML AMP HHN SCH ×6 (01:04→21:29)
[2019-05-22] MEDS ORDERED: INSULIN ASPART [NOVOLOG] 3 ML PEN SC ONE (02:00)
[2019-05-22] MEDS: ACCU-CHEK XX SCH (02:03)
[2019-05-22 02:38] VITALS: BP 144/64; PULSE 86; RESP 18
[2019-05-22] MEDS ORDERED: ACCU-CHEK XX ONE (04:00)
[2019-05-22] MEDS: LEVOTHYROXINE 25 MCG TAB PO SCH (06:31)
[2019-05-22 07:55] VITALS: BP 159/70; PULSE 73; RESP 20
[2019-05-22] MEDS: Insulin NOVOLOG SS MILD Algorithm (SS with meals and bedtime) SC SCH ×4 (09:17→20:49)
[2019-05-22] MEDS: GUAIFENESIN LA 600 MG TABSR PO SCH ×2 (09:17→20:47)
[2019-05-22] MEDS: GABAPENTIN 300 MG CAP PO SCH ×2 (09:18→20:47)
[2019-05-22] MEDS: ASPIRIN 81 MG TAB PO SCH (09:18)
[2019-05-22] MEDS: MAGNESIUM OXIDE 400 MG TAB PO SCH (09:18)
[2019-05-22 14:07] VITALS: BP 148/65; PULSE 85; RESP 20
--- NOTE | 2019-05-22 17:00 | PN ---
Date/Time of Note Date/Time of Note DATE: 05/22/19 TIME: 16:57 Assessment/Plan VTE Prophylaxis Risk score (from Ns)>0 risk: 4 SCD applied (from Nsg): Yes Pharmacological prophylaxis: other Lines/Catheters [facility]from [facility] Saline Lock Assessment/Plan Hospital Course S: Patient shortness of breath slightly improved but still present with some mild wheezing symptoms. O: VS - see below PHYSICAL EXAMINATION: GENERAL: Lying in bed, no acute distress HEENT: Pupils equal, round, reactive to light. Extraocular muscles intact. NECK: Supple, no thyromegaly. LUNGS: Less expiratory wheezes heard but they are still present, left greater than right lung areas. CARDIOVASCULAR: S1, S2 heard. No rubs or gallops. ABDOMEN: Soft, nontender, nondistended. Normal bowel sounds. No rebound or guarding. MUSCULOSKELETAL: No lower extremity edema bilaterally. NEUROLOGIC: No focal deficits. ASSESSMENT AND PLAN: 69-year-old female with history of bronchiectasis, chronic obstructive pulmonary disease, bullous emphysematous changes, diabetes, hypertension, gastroesophageal reflux disease, peripheral neuropathy, hypothyroidism, who was transferred over due to insurance purposes with shortness of breath, signs of chronic obstructive pulmonary disease exacerbations. 1. Shortness of breath and chest pressure-slowly improving, but still present. Again symptoms secondary to chronic obstructive pulmonary disease exacerbation. -For now continue breathing treatments q.4 hours and IV steroids and low-dose IV antibiotics. -May need to have public health social worker evaluate patient for possible letter stating that she cannot travel which the medical team will approve of at this time - Continue PT and OT 2. Diabetes A1c was 6.1 - continue sliding scale insulin. 3. Hypertension. Stable - continue current blood pressure medicines. 4. History of gastroesophageal reflux disease- PPI 5. History of diabetic peripheral neuropathy. -Monitor, continue gabapentin. 6. History of hypothyroidism. - Continue levothyroxine. Result Diagram: 05/22/19 0544 05/22/19 0544 Results 24hrs Laboratory Tests Test 05/21/19 17:34 05/21/19 20:47 05/22/19 01:37 05/22/19 04:32 Bedside Glucose 166 213 310 H 185 Test 05/22/19 05:44 05/22/19 09:09 05/22/19 12:45 White Blood Count 2.9 L Red Blood Count 4.66 Hemoglobin 11.6 L Hematocrit 37.7 Mean Corpuscular 80.9 L Volume Mean Corpuscular 24.9 L Hemoglobin Mean Corpuscular 30.8 L Hemoglobin Concent Red Cell 15.1 H Distribution Width Platelet Count 86 L Mean Platelet Volume 13.1 H Immature 1.400 H Granulocytes % Neutrophils % 79.0 H Lymphocytes % 14.8 L Monocytes % 4.8 Eosinophils % 0.0 Basophils % 0.0 Nucleated Red Blood 0.0 Cells % Immature 0.040 H Granulocytes # Neutrophils # 2.3 Lymphocytes # 0.4 L Monocytes # 0.1 L Eosinophils # 0.0 Basophils # 0.0 Nucleated Red Blood 0.0 Cells # Sodium Level 139 Potassium Level 4.2 Chloride Level 101 Carbon Dioxide Level 34 H Anion Gap 4 L Blood Urea Nitrogen 31 H Creatinine 0.58 Est Glomerular > 60 Filtrat Rate mL/min Glucose Level 185 Calcium Level 9.0 Bedside Glucose 222 H 199 Exam/Review of Systems Exam Vitals Vital Signs Date Temp Pulse Resp B/P (MAP) Pulse Ox O2 O2 Flow FiO2 Time Delivery Rate 05/22/19 78 22 94 Nasal 2.0 16:53 Cannula 05/22/19 98.5 148/65 14:07 (92) Intake and Output 05/21/19 05/21/19 05/22/19 1515:00 23:00 07:00 IntakeIntake Total 120 ml 690 ml OutputOutput Total 1 ml BalanceBalance 120 ml 689 ml Results Results 24hrs Laboratory Tests Test 05/21/19 17:34 05/21/19 20:47 05/22/19 01:37 05/22/19 04:32 Bedside Glucose 166 213 310 H 185 Test 05/22/19 05:44 05/22/19 09:09 05/22/19 12:45 White Blood Count 2.9 L Red Blood Count 4.66 Hemoglobin 11.6 L Hematocrit 37.7 Mean Corpuscular 80.9 L Volume Mean Corpuscular 24.9 L Hemoglobin Mean Corpuscular 30.8 L Hemoglobin Concent Red Cell 15.1 H Distribution Width Platelet Count 86 L Mean Platelet Volume 13.1 H Immature 1.400 H Granulocytes % Neutrophils % 79.0 H Lymphocytes % 14.8 L Monocytes % 4.8 Eosinophils % 0.0 Basophils % 0.0 Nucleated Red Blood 0.0 Cells % Immature 0.040 H Granulocytes # Neutrophils # 2.3 Lymphocytes # 0.4 L Monocytes # 0.1 L Eosinophils # 0.0 Basophils # 0.0 Nucleated Red Blood 0.0 Cells # Sodium Level 139 Potassium Level 4.2 Chloride Level 101 Carbon Dioxide Level 34 H Anion Gap 4 L Blood Urea Nitrogen 31 H Creatinine 0.58 Est Glomerular > 60 Filtrat Rate mL/min Glucose Level 185 Calcium Level 9.0 Bedside Glucose 222 H 199 Medications Medication Current Medications IV Flush (NS 3 ml) 3 ml PER PROTOCOL IV ; Start 05/19/19 at 18:30 Ondansetron HCl (Zofran Inj) 4 mg Q6H PRN IV NAUSEA/VOMITING; Start 05/19/19 at 18:30 Acetaminophen (Tylenol Tab) 650 mg Q6H PRN PO .PAIN 1-3 OR TEMP; Start 05/19/19 at 18:30 Acetaminophen/ Hydrocodone Bitart ([place] (5/325)) 1 tab Q6H PRN PO .MOD PAIN 4- 6; Start 05/19/19 at 18:30 Morphine Sulfate (morphine) 2 mg Q4H PRN IV .SEVERE PAIN 7-10; Start 05/19/19 at 18:30 Docusate Sodium (Colace) 100 mg Q12H PRN PO .CONSTIPATION; Start 05/19/19 at 18:30 Magnesium Hydroxide (Milk Of Mag) 30 ml DAILY PRN PO .CONSTIPATION Last administered on 05/21/19at 20:48; Admin Dose 30 ML; Start 05/19/19 at 18:30 Lorazepam (Ativan) 0.5 mg Q6H PRN IV ANXIETY; Start 05/19/19 at 18:30 Albuterol/ Ipratropium (Duoneb) 3 ml Q4H RESP THERAPY HHN Last administered on 05/22/19at 16:53; Admin Dose 3 ML; Start 05/19/19 at 21:00 Hydralazine HCl (Apresoline) 10 mg Q6H PRN IV ELEVATED BLOOD PRESSURE; Start 05/19/19 at 18:30 Nitroglycerin (Nitroglycerin (Sl Tab) 0.4 Mg) 1 tab Q5M PRN SL ANGINA; Start 05/19/19 at 18:30 Diagnostic Test (Pha) (Accu-Chek) 1 ea 02 XX Last administered on 05/22/19 02: 03; Admin Dose 1 EA; Start 05/20/19 at 02:00 Methylprednisolone Sodium Succinate (Solu-Medrol) 60 mg Q6 IV Last administered on 05/22/19 13:12; Admin Dose 60 MG; Start 05/19/19 at 18:30 Miscellaneous Information 1 ea NOTE XX ; Start 05/19/19 at 18:30 Glucose (Glutose) 15 gm Q15M PRN PO DECREASED GLUCOSE; Start 05/19/19 at 18:30 Glucose (Glutose) 22.5 gm Q15M PRN PO DECREASED GLUCOSE; Start 05/19/19 at 18:30 Dextrose (D50w Syringe) 25 ml Q15M PRN IV DECREASED GLUCOSE; Start 05/19/19 at 18:30 Dextrose (D50w Syringe) 50 ml Q15M PRN IV DECREASED GLUCOSE; Start 05/19/19 at 18:30 Glucagon (Glucagen) 1 mg Q15M PRN IM DECREASED GLUCOSE; Start 05/19/19 at 18:30 Glucose (Glutose) 15 gm Q15M PRN BUCCAL DECREASED GLUCOSE; Start 05/19/19 at 18:30 Miscellaneous Information Patients own medicat... BID@10,16 XX ; Start 05/20/19 at 10:00 Aspirin (Aspirin) 81 mg DAILY PO Last administered on 05/22/19 09:18; Admin Dose 81 MG; Start 05/21/19 at 09:00 Gabapentin (Neurontin) 600 mg BID PO Last administered on 05/22/19 09:18; Admin Dose 600 MG; Start 05/20/19 at 21:00 Guaifenesin (Mucinex) 600 mg BID PO Last administered on 05/22/19 09:17; Admin Dose 600 MG; Start 05/20/19 at 21:00 Levothyroxine Sodium (Synthroid) 25 mcg BEFORE BREAKFAST PO Last administered on 05/22/19 06:31; Admin Dose 25 MCG; Start 05/21/19 at 07:00 Magnesium Oxide (Mag-Ox 400) 400 mg DAILY PO Last administered on 05/22/19 09:18; Admin Dose 400 MG; Start 05/21/19 at 09:00 Montelukast Sodium (Singulair) 10 mg QHS PO Last administered on 05/21/19 20:48; Admin Dose 10 MG; Start 05/20/19 at 21:00 Insulin Aspart (Novolog Insulin Pen) (Adult SC Insulin - Mild Algorithm)... AC MEALS AND BEDTIME SC Last administered on 05/22/19at 12:48; Admin Dose 2 UNIT; Start 05/21/19 at 17:30 KAYLEEN MATHEW May 22, 2019 17:00
[2019-05-22 20:29] VITALS: BP 143/64; PULSE 82; RESP 18
[2019-05-22] MEDS: MONTELUKAST 10 MG TAB PO SCH (20:47)
[2019-05-22] MEDS: INSULIN GLARGINE [LANTus] (100 UNITS/ML) SYG SC SCH (20:49)
[2019-05-23] MEDS: METHYLPREDNISOLONE 125 MG INJ IV SCH ×3 (00:17→12:46)
[2019-05-23] MEDS: ALBUTEROL/IPRATROPIUM (NEB) 3 ML AMP HHN SCH ×6 (00:56→19:59)
[2019-05-23] MEDS: ACCU-CHEK XX SCH (01:41)
[2019-05-23 02:22] VITALS: BP 151/67; PULSE 80; RESP 18
[2019-05-23] MEDS: LEVOTHYROXINE 25 MCG TAB PO SCH (06:15)
[2019-05-23 08:04] VITALS: BP 155/72; PULSE 78; RESP 20
[2019-05-23] MEDS: GUAIFENESIN LA 600 MG TABSR PO SCH ×2 (08:08→20:52)
[2019-05-23] MEDS: MAGNESIUM OXIDE 400 MG TAB PO SCH (08:08)
[2019-05-23] MEDS: GABAPENTIN 300 MG CAP PO SCH ×2 (08:08→20:52)
[2019-05-23] MEDS: ASPIRIN 81 MG TAB PO SCH (08:08)
[2019-05-23] MEDS: Insulin NOVOLOG SS MILD Algorithm (SS with meals and bedtime) SC SCH ×4 (08:10→20:58)
--- NOTE | 2019-05-23 12:57 | PN ---
Date/Time of Note Date/Time of Note DATE: 05/23/19 TIME: 12:57 Assessment/Plan VTE Prophylaxis Risk score (from Ns)>0 risk: 4 SCD applied (from Nsg): Yes Pharmacological prophylaxis: other Lines/Catheters IV Catheter Type (from [facility]): Saline Lock Assessment/Plan Hospital Course S: Patient had some blood-tinged sputum this morning, hemoglobin is stable. Otherwise tolerating diet, overall slightly less shortness of breath symptoms since admission, but still present. O: VS - see below PHYSICAL EXAMINATION: GENERAL: Lying in bed, no acute distress HEENT: Pupils equal, round, reactive to light. Extraocular muscles intact. NECK: Supple, no thyromegaly. LUNGS: Less expiratory wheezes heard but they are still present, left greater than right lung areas. CARDIOVASCULAR: S1, S2 heard. No rubs or gallops. ABDOMEN: Soft, nontender, nondistended. Normal bowel sounds. No rebound or guarding. MUSCULOSKELETAL: No lower extremity edema bilaterally. NEUROLOGIC: No focal deficits. ASSESSMENT AND PLAN: 69-year-old female with history of bronchiectasis, chronic obstructive pulmonary disease, bullous emphysematous changes, diabetes, hypertension, gastroesophageal reflux disease, peripheral neuropathy, hypothyroidism, who was transferred over due to insurance purposes with shortness of breath, signs of chronic obstructive pulmonary disease exacerbations. 1. Shortness of breath and chest pressure-slowly improving, but still present. Again symptoms secondary to chronic obstructive pulmonary disease exacerbation. -continue breathing treatments q.4 hours, will taper to p.o. steroids today, continue low-dose IV antibiotics. - Continue PT and OT 2. Diabetes A1c was 6.1 - continue sliding scale insulin. 3. Hypertension. Stable - continue current blood pressure medicines. 4. History of gastroesophageal reflux disease- PPI 5. History of diabetic peripheral neuropathy. -Monitor, continue gabapentin. 6. History of hypothyroidism. - Continue levothyroxine. Result Diagram: 05/23/19 0553 05/23/19 0553 Results 24hrs Laboratory Tests Test 05/22/19 17:35 05/22/19 20:47 05/23/19 01:35 05/23/19 05:53 Bedside Glucose 204 317 H 185 White Blood Count 2.9 L Red Blood Count 4.84 Hemoglobin 11.8 L Hematocrit 39.5 Mean Corpuscular 81.6 L Volume Mean Corpuscular 24.4 L Hemoglobin Mean Corpuscular 29.9 L Hemoglobin Concent Red Cell 15.1 H Distribution Width Platelet Count 80 L Mean Platelet Volume 12.0 H Immature 1.400 H Granulocytes % Neutrophils % 82.8 H Lymphocytes % 11.3 L Monocytes % 4.5 Eosinophils % 0.0 Basophils % 0.0 Nucleated Red Blood 0.0 Cells % Immature 0.040 H Granulocytes # Neutrophils # 2.4 Lymphocytes # 0.3 L Monocytes # 0.1 L Eosinophils # 0.0 Basophils # 0.0 Nucleated Red Blood 0.0 Cells # Sodium Level 138 Potassium Level 5.1 Chloride Level 99 Carbon Dioxide Level 35 H Anion Gap 4 L Blood Urea Nitrogen 31 H Creatinine 0.53 Est Glomerular > 60 Filtrat Rate mL/min Glucose Level 186 Calcium Level 8.8 Phosphorus Level 3.2 Magnesium Level 2.3 Test 05/23/19 08:08 Bedside Glucose 195 Exam/Review of Systems Exam Vitals Vital Signs Date Temp Pulse Resp B/P (MAP) Pulse Ox O2 O2 Flow FiO2 Time Delivery Rate 05/23/19 72 18 97 Nasal 2.0 12:07 Cannula 05/23/19 98.2 155/72 08:04 (99) Intake and Output 05/22/19 05/22/19 05/23/19 1414:59 22:59 06:59 IntakeIntake Total 1240 ml 600 ml 118 ml BalanceBalance 1240 ml 600 ml 118 ml Results Results 24hrs Laboratory Tests Test 05/22/19 17:35 05/22/19 20:47 05/23/19 01:35 05/23/19 05:53 Bedside Glucose 204 317 H 185 White Blood Count 2.9 L Red Blood Count 4.84 Hemoglobin 11.8 L Hematocrit 39.5 Mean Corpuscular 81.6 L Volume Mean Corpuscular 24.4 L Hemoglobin Mean Corpuscular 29.9 L Hemoglobin Concent Red Cell 15.1 H Distribution Width Platelet Count 80 L Mean Platelet Volume 12.0 H Immature 1.400 H Granulocytes % Neutrophils % 82.8 H Lymphocytes % 11.3 L Monocytes % 4.5 Eosinophils % 0.0 Basophils % 0.0 Nucleated Red Blood 0.0 Cells % Immature 0.040 H Granulocytes # Neutrophils # 2.4 Lymphocytes # 0.3 L Monocytes # 0.1 L Eosinophils # 0.0 Basophils # 0.0 Nucleated Red Blood 0.0 Cells # Sodium Level 138 Potassium Level 5.1 Chloride Level 99 Carbon Dioxide Level 35 H Anion Gap 4 L Blood Urea Nitrogen 31 H Creatinine 0.53 Est Glomerular > 60 Filtrat Rate mL/min Glucose Level 186 Calcium Level 8.8 Phosphorus Level 3.2 Magnesium Level 2.3 Test 05/23/19 08:08 Bedside Glucose 195 Medications Medication Current Medications IV Flush (NS 3 ml) 3 ml PER PROTOCOL IV Last administered on 05/22/19at 18:21; Admin Dose 3 ML; Start 05/19/19 at 18:30 Ondansetron HCl (Zofran Inj) 4 mg Q6H PRN IV NAUSEA/VOMITING; Start 05/19/19 at 18:30 Acetaminophen (Tylenol Tab) 650 mg Q6H PRN PO .PAIN 1-3 OR TEMP; Start 05/19/19 at 18:30 Acetaminophen/ Hydrocodone Bitart ([place] (5/325)) 1 tab Q6H PRN PO .MOD PAIN 4- 6; Start 05/19/19 at 18:30 Morphine Sulfate (morphine) 2 mg Q4H PRN IV .SEVERE PAIN 7-10; Start 05/19/19 at 18:30 Docusate Sodium (Colace) 100 mg Q12H PRN PO .CONSTIPATION; Start 05/19/19 at 18:30 Magnesium Hydroxide (Milk Of Mag) 30 ml DAILY PRN PO .CONSTIPATION Last administered on 05/21/19at 20:48; Admin Dose 30 ML; Start 05/19/19 at 18:30 Lorazepam (Ativan) 0.5 mg Q6H PRN IV ANXIETY; Start 05/19/19 at 18:30 Albuterol/ Ipratropium (Duoneb) 3 ml Q4H RESP THERAPY HHN Last administered on 05/23/19at 12:07; Admin Dose 3 ML; Start 05/19/19 at 21:00 Hydralazine HCl (Apresoline) 10 mg Q6H PRN IV ELEVATED BLOOD PRESSURE; Start 05/19/19 at 18:30 Nitroglycerin (Nitroglycerin (Sl Tab) 0.4 Mg) 1 tab Q5M PRN SL ANGINA; Start 05/19/19 at 18:30 Diagnostic Test (Pha) (Accu-Chek) 1 ea 02 XX Last administered on 05/22/19at 02:03; Admin Dose 1 EA; Start 05/20/19 at 02:00 Methylprednisolone Sodium Succinate (Solu-Medrol) 60 mg Q6 IV Last administered on 05/23/19at 12:46; Admin Dose 60 MG; Start 05/19/19 at 18:30 Miscellaneous Information 1 ea NOTE XX ; Start 05/19/19 at 18:30 Glucose (Glutose) 15 gm Q15M PRN PO DECREASED GLUCOSE; Start 05/19/19 at 18:30 Glucose (Glutose) 22.5 gm Q15M PRN PO DECREASED GLUCOSE; Start 05/19/19 at 18:30 Dextrose (D50w Syringe) 25 ml Q15M PRN IV DECREASED GLUCOSE; Start 05/19/19 at 18:30 Dextrose (D50w Syringe) 50 ml Q15M PRN IV DECREASED GLUCOSE; Start 05/19/19 at 18:30 Glucagon (Glucagen) 1 mg Q15M PRN IM DECREASED GLUCOSE; Start 05/19/19 at 18:30 Glucose (Glutose) 15 gm Q15M PRN BUCCAL DECREASED GLUCOSE; Start 05/19/19 at 18:30 Miscellaneous Information Patients own medicat... BID@,16 XX ; Start 05/20/19 at 10:00 Aspirin (Aspirin) 81 mg DAILY PO Last administered on 05/23/19 08:08; Admin Dose 81 MG; Start 05/21/19 at 09:00 Gabapentin (Neurontin) 600 mg BID PO Last administered on 05/23/19 08:08; Admin Dose 600 MG; Start 05/20/19 at 21:00 Guaifenesin (Mucinex) 600 mg BID PO Last administered on 05/23/19 08:08; Admin Dose 600 MG; Start 05/20/19 at 21:00 Levothyroxine Sodium (Synthroid) 25 mcg BEFORE BREAKFAST PO Last administered on 05/23/19 06:15; Admin Dose 25 MCG; Start 05/21/19 at 07:00 Magnesium Oxide (Mag-Ox 400) 400 mg DAILY PO Last administered on 05/23/19 08:08; Admin Dose 400 MG; Start 05/21/19 at 09:00 Montelukast Sodium (Singulair) 10 mg QHS PO Last administered on 05/22/19at 20:47; Admin Dose 10 MG; Start 05/20/19 at 21:00 Insulin Aspart (Novolog Insulin Pen) (Adult SC Insulin - Mild Algorithm)... AC MEALS AND BEDTIME SC Last administered on 05/23/19at 12:48; Admin Dose 3 UNIT; Start 05/21/19 at 17:30 Insulin Glargine (Lantus) 10 units DAILY@2000 SC Last administered on 05/22/19at 20:49; Admin Dose 10 UNITS; Start 05/22/19 at 20:00 KAYLEEN MATHEW May 23, 2019 12:57
[2019-05-23 14:33] VITALS: BP 139/63; PULSE 80; RESP 20
[2019-05-23 20:22] VITALS: BP 147/67; PULSE 78; RESP 18
[2019-05-23] MEDS: MONTELUKAST 10 MG TAB PO SCH (20:52)
[2019-05-23] MEDS: INSULIN GLARGINE [LANTus] (100 UNITS/ML) SYG SC SCH (20:59)
[2019-05-24] MEDS: ALBUTEROL/IPRATROPIUM (NEB) 3 ML AMP HHN SCH ×6 (00:56→20:34)
[2019-05-24 02:00] VITALS: BP 149/62; PULSE 76; RESP 18
[2019-05-24] MEDS: ACCU-CHEK XX SCH (02:00)
[2019-05-24] MEDS: LEVOTHYROXINE 25 MCG TAB PO SCH (06:12)
[2019-05-24 08:06] VITALS: BP 119/56; PULSE 74; RESP 20
[2019-05-24] MEDS: MAGNESIUM OXIDE 400 MG TAB PO SCH (08:15)
[2019-05-24] MEDS: GABAPENTIN 300 MG CAP PO SCH ×2 (08:15→20:28)
[2019-05-24] MEDS: Insulin NOVOLOG SS MILD Algorithm (SS with meals and bedtime) SC SCH ×4 (08:15→21:00)
[2019-05-24] MEDS: ASPIRIN 81 MG TAB PO SCH (08:15)
[2019-05-24] MEDS: GUAIFENESIN LA 600 MG TABSR PO SCH ×2 (08:15→20:28)
[2019-05-24] MEDS: predniSONE 10 MG TAB PO SCH (08:22)
[2019-05-24] MEDS ORDERED: predniSONE 20 MG TAB PO SCH (09:00)
[2019-05-24 14:04] VITALS: BP 120/58; PULSE 69; RESP 20
--- NOTE | 2019-05-24 14:47 | PN ---
Date/Time of Note Date/Time of Note DATE: 05/24/19 TIME: 14:45 Assessment/Plan VTE Prophylaxis Risk score (from Ns)>0 risk: 4 SCD applied (from Ns): Yes Pharmacological prophylaxis: NA/contraindicated Pharm contraindication: low risk/ambulating Lines/Catheters IV Catheter Type (from [facility]): [place] [facility] Assessment/Plan Assessment/Plan 69-year-old female with history of bronchiectasis, chronic obstructive pulmonary disease, bullous emphysematous changes, diabetes, hypertension, gastroesophageal reflux disease, peripheral neuropathy, hypothyroidism, who was transferred over due to insurance purposes with shortness of breath, signs of chronic obstructive pulmonary disease exacerbations. 1. Shortness of breath and chest pressure-slowly improving, but still present. Again symptoms secondary to chronic obstructive pulmonary disease exacerbation. -continue breathing treatments q.4 hours, continue PO steroids, continue low- dose IV antibiotics. - Continue PT and OT 2. Diabetes A1c was 6.1 - continue sliding scale insulin. 3. Hypertension. Stable - continue current blood pressure medicines. 4. History of gastroesophageal reflux disease- PPI 5. History of diabetic peripheral neuropathy. - continue gabapentin. 6. History of hypothyroidism. - Continue levothyroxine. Dispo: Anticipate discharge in 24-48 hours Result Diagram: 05/24/19 0515 05/24/19 0514 Subjective 24 Hr Interval Summary Free Text/Dictation No acute overnight events. Spoke to patient with her son Galileo translating in Yakut over the phone. Exam/Review of Systems Exam Vitals Vital Signs Date Temp Pulse Resp B/P (MAP) Pulse Ox O2 O2 Flow FiO2 Time Delivery Rate 05/24/19 98.1 69 20 120/58 94 14:04 (78) 05/24/19 Nasal 2.0 12:57 Cannula Intake and Output 05/23/19 05/23/19 05/24/19 1515:00 23:00 07:00 IntakeIntake Total 1040 ml 600 ml 480 ml BalanceBalance 1040 ml 600 ml 480 ml Exam GENERAL: Lying in bed, no acute distress HEENT: Pupils equal, round, reactive to light. Extraocular muscles intact. NECK: Supple, no thyromegaly. LUNGS: Coarse bilateral lung sounds and expiratory wheezes bilaterally. CARDIOVASCULAR: S1, S2 heard. No rubs or gallops. ABDOMEN: Soft, nontender, nondistended. Normal bowel sounds. No rebound or guarding. MUSCULOSKELETAL: No lower extremity edema bilaterally. Results Results 24hrs Laboratory Tests Test 05/23/19 17:16 05/23/19 20:53 05/24/19 01:24 05/24/19 05:14 Bedside Glucose 143 183 180 Sodium Level 139 Potassium Level 4.8 Chloride Level 97 Carbon Dioxide Level 35 H Anion Gap 7 Blood Urea Nitrogen 32 H Creatinine 0.66 Est Glomerular > 60 Filtrat Rate mL/min Glucose Level 154 Calcium Level 9.1 Phosphorus Level 3.3 Magnesium Level 2.3 Test 05/24/19 05:15 05/24/19 08:15 05/24/19 12:30 White Blood Count 4.7 #L Red Blood Count 4.70 Hemoglobin 11.5 L Hematocrit 37.7 Mean Corpuscular 80.2 L Volume Mean Corpuscular 24.5 L Hemoglobin Mean Corpuscular 30.5 L Hemoglobin Concent Red Cell 14.9 H Distribution Width Platelet Count 87 L Mean Platelet Volume Immature 1.300 H Granulocytes % Neutrophils % 74.0 Lymphocytes % 15.0 Monocytes % 9.7 Eosinophils % 0.0 Basophils % 0.0 Nucleated Red Blood 0.0 Cells % Immature 0.060 H Granulocytes # Neutrophils # 3.5 Lymphocytes # 0.7 L Monocytes # 0.5 Eosinophils # 0.0 Basophils # 0.0 Nucleated Red Blood 0.0 Cells # Bedside Glucose 94 138 Medications Medication Current Medications IV Flush (NS 3 ml) 3 ml PER PROTOCOL IV Last administered on 05/22/19at 18:21; Admin Dose 3 ML; Start 05/19/19 at 18:30 Ondansetron HCl (Zofran Inj) 4 mg Q6H PRN IV NAUSEA/VOMITING; Start 05/19/19 at 18:30 Acetaminophen (Tylenol Tab) 650 mg Q6H PRN PO .PAIN 1-3 OR TEMP; Start 05/19/19 at 18:30 Acetaminophen/ Hydrocodone Bitart ([place] (5/325)) 1 tab Q6H PRN PO .MOD PAIN 4- 6; Start 05/19/19 at 18:30 Morphine Sulfate (morphine) 2 mg Q4H PRN IV .SEVERE PAIN 7-10; Start 05/19/19 at 18:30 Docusate Sodium (Colace) 100 mg Q12H PRN PO .CONSTIPATION; Start 05/19/19 at 18:30 Magnesium Hydroxide (Milk Of Mag) 30 ml DAILY PRN PO .CONSTIPATION Last administered on 05/21/19at 20:48; Admin Dose 30 ML; Start 05/19/19 at 18:30 Lorazepam (Ativan) 0.5 mg Q6H PRN IV ANXIETY; Start 05/19/19 at 18:30 Albuterol/ Ipratropium (Duoneb) 3 ml Q4H RESP THERAPY HHN Last administered on 05/24/19at 12:56; Admin Dose 3 ML; Start 05/19/19 at 21:00 Hydralazine HCl (Apresoline) 10 mg Q6H PRN IV ELEVATED BLOOD PRESSURE; Start 05/19/19 at 18:30 Nitroglycerin (Nitroglycerin (Sl Tab) 0.4 Mg) 1 tab Q5M PRN SL ANGINA; Start 05/19/19 at 18:30 Diagnostic Test (Pha) (Accu-Chek) 1 ea 02 XX Last administered on 05/22/19at 02:03; Admin Dose 1 EA; Start 05/20/19 at 02:00 Miscellaneous Information 1 ea NOTE XX ; Start 05/19/19 at 18:30 Glucose (Glutose) 15 gm Q15M PRN PO DECREASED GLUCOSE; Start 05/19/19 at 18:30 Glucose (Glutose) 22.5 gm Q15M PRN PO DECREASED GLUCOSE; Start 05/19/19 at 18:30 Dextrose (D50w Syringe) 25 ml Q15M PRN IV DECREASED GLUCOSE; Start 05/19/19 at 18:30 Dextrose (D50w Syringe) 50 ml Q15M PRN IV DECREASED GLUCOSE; Start 05/19/19 at 18:30 Glucagon (Glucagen) 1 mg Q15M PRN IM DECREASED GLUCOSE; Start 05/19/19 at 18:30 Glucose (Glutose) 15 gm Q15M PRN BUCCAL DECREASED GLUCOSE; Start 05/19/19 at 18:30 Miscellaneous Information Patients own medicat... BID@,16 XX ; Start 05/20/19 at 10:00 Aspirin (Aspirin) 81 mg DAILY PO Last administered on 05/24/19 08:15; Admin Dose 81 MG; Start 05/21/19 at 09:00 Gabapentin (Neurontin) 600 mg BID PO Last administered on 05/24/19 08:15; Admin Dose 600 MG; Start 05/20/19 at 21:00 Guaifenesin (Mucinex) 600 mg BID PO Last administered on 05/24/19 08:15; Admin Dose 600 MG; Start 05/20/19 at 21:00 Levothyroxine Sodium (Synthroid) 25 mcg BEFORE BREAKFAST PO Last administered on 05/24/19 06:12; Admin Dose 25 MCG; Start 05/21/19 at 07:00 Magnesium Oxide (Mag-Ox 400) 400 mg DAILY PO Last administered on 05/24/19 08:15; Admin Dose 400 MG; Start 05/21/19 at 09:00 Montelukast Sodium (Singulair) 10 mg QHS PO Last administered on 05/23/19 20:52; Admin Dose 10 MG; Start 05/20/19 at 21:00 Insulin Aspart (Novolog Insulin Pen) (Adult SC Insulin - Mild Algorithm)... AC MEALS AND BEDTIME SC Last administered on 05/23/19 20:58; Admin Dose 1 UNIT; Start 05/21/19 at 17:30 Insulin Glargine (Lantus) 10 units DAILY@2000 SC Last administered on 05/23/19 20:59; Admin Dose 10 UNITS; Start 05/22/19 at 20:00 Prednisone (Prednisone) 60 mg DAILY PO Last administered on 05/24/19 08:22; A dmin Dose 60 MG; Start 05/24/19 at 09:00 ZION BRAUN MD May 24, 2019 14:47
[2019-05-24 20:23] VITALS: BP 138/66; PULSE 77; RESP 20
[2019-05-24] MEDS: MONTELUKAST 10 MG TAB PO SCH (20:28)
[2019-05-24] MEDS: INSULIN GLARGINE [LANTus] (100 UNITS/ML) SYG SC SCH (20:31)
[2019-05-25] MEDS: ALBUTEROL/IPRATROPIUM (NEB) 3 ML AMP HHN SCH ×5 (01:01→17:39)
[2019-05-25 01:45] VITALS: BP 113/59; PULSE 77; RESP 18
[2019-05-25] MEDS: ACCU-CHEK XX SCH (02:00)
[2019-05-25] MEDS: LEVOTHYROXINE 25 MCG TAB PO SCH (06:53)
[2019-05-25] MEDS: Insulin NOVOLOG SS MILD Algorithm (SS with meals and bedtime) SC SCH ×3 (07:00→17:22)
[2019-05-25 08:00] VITALS: BP 118/55; PULSE 75; RESP 20
[2019-05-25] MEDS: MAGNESIUM OXIDE 400 MG TAB PO SCH (09:32)
[2019-05-25] MEDS: ASPIRIN 81 MG TAB PO SCH (09:32)
[2019-05-25] MEDS: predniSONE 10 MG TAB PO SCH (09:33)
[2019-05-25] MEDS: GABAPENTIN 300 MG CAP PO SCH (09:33)
[2019-05-25] MEDS: GUAIFENESIN LA 600 MG TABSR PO SCH (09:37)
[2019-05-25] MEDS ORDERED: PRED20TA PO (13:10)
--- NOTE | 2019-05-25 13:11 | PDOCDIS ---
Discharge Instructions DIAGNOSIS Discharge Diagnosis COPD exacerbation CONDITION [id number] Patient Condition: [id number] Fair HOME CARE INSTRUCTIONS: [id number] Diet Instructions: [id number] Regular ACTIVITY: [id number] Activity Restrictions: [id number] No Restrictions FOLLOW UP/APPOINTMENTS Follow-up Plan 1. Take all medications as prescribed. 2. I sent a new prescription for prednisone 40mg daily to the [facility]. You should take this for another 7 days. 3. See your primary care doctor in 1 week. 4. For worsening shortness of breath, return to the emergency room. ZION BRAUN MD May 25, 2019 13:11
[2019-05-25 14:00] VITALS: BP 150/67; PULSE 88; RESP 19
--- NOTE | 2019-05-25 19:05 | DS ---
Date/Time of Note Date/Time of Note DATE: 05/25/19 TIME: 19:03 Discharge Summary Admission/Discharge Info Admit Date/Time May 21, 2019 at 07:02 Discharge Date/Time May 25, 2019 Discharge Diagnosis COPD exacerbation Patient Condition: Good Consults None Procedures None Hx of Present Illness HISTORY OF PRESENT ILLNESS: A 69-year-old female with past medical history based on records of diabetes, hypertension, COPD, diabetic peripheral neuropathy, hypothyroidism, possible coronary artery disease, GERD, who was transferred over due to insurance purposes from an outside hospital after being admitted over there with shortness of breath and signs of COPD exacerbation. It looks like patient has a history of bullous emphysema found on chest x-ray, resulting from secondhand smoke exposure from her who earlier this year. She started having shortness of breath symptoms a few days prior to admission and also chest pressure. When she arrived at the outside hospital, she was given IV steroids and breathing treatments and she is still having some wheezing presently. Denies any upper or lower GI bleeding. No nausea or vomiting. No fevers or chills. No diarrhea or constipation. PAST MEDICAL HISTORY: As stated above. ALLERGIES: ANESTHESIA, CONTRAST, AND DYE. FAMILY HISTORY: Noncontributory. Hospital Course The patient was admitted to med/surg. On review of CXR there was no concern of lobar pneumonia, so no antibiotics were given. She was given high dose steroids and these were tapered down. She was able to walk with physical therapy. Breathing returned to baseline. She will be discharged on prednisone 40mg daily for 1 week. Home Meds Active Scripts Prednisone* (Prednisone*) 20 Mg Tab, 40 MG PO DAILY for 7 Days, #14 TAB Prov:ZION BRAUN MD 05/25/19 Insulin Glargine* (Lantus*) 100 Unit/Ml Soln, 10 UNIT SC QAM for 14 Days Prov:NEGRO NGUYEN 12/29/16 Nifedipine (Procardia Xl) 30 Mg Tab.er.24, 30 MG PO BID, #60 TAB Prov:TATI SANCHEZ MD 08/30/16 [Theophylline (Sr)] 200 MG TABSR No Conflict Check, 200 MG PO QHS, #30 Prov:TATI SANCHEZ MD 08/30/16 Aspirin (Aspirin) 81 Mg Chew, 81 MG PO DAILY, #30 TAB Prov:TATI SANCHEZ MD 08/30/16 Magnesium Oxide* (Magnesium Oxide*) 400 Mg Tablet, 400 MG PO DAILY, #30 TAB Prov:TATI SANCHEZ MD 08/30/16 Metformin* (Glucophage*) 500 Mg Tab, 1000 MG PO WITH LUNCH DINNER, #60 TAB Prov:TATI SANCHEZ MD 08/30/16 Esomeprazole Mag Trihydrate (Nexium) 40 Mg Capsule.dr, 40 MG PO DAILY, #30 CAP Prov:TATI SANCHEZ MD 08/30/16 Tiotropium [place]* (Spiriva*) 18 Mcg Cap.w.dev, 1 CAP INHALATION DAILY, #30 CAP Prov:TATI SANCHEZ MD 08/30/16 Salmeterol Xinaf-Fluticasone* (Advair*) 500/50 Diskus Inhaler, 1 INH INHALATION BID, #1 INHALER Prov:TATI SANCHEZ MD 08/30/16 Calcium Citrate/Vitamin D (Citracal-Vitamin D 200 MG-250) 1 Each Tablet, 1 EACH PO BID, #60 TAB Prov:TATI SANCHEZ MD 08/30/16 Montelukast Sodium* (Singulair*) 10 Mg Tablet, 10 MG PO QHS, #30 TAB Prov:TATI SANCHEZ MD 08/30/16 Reported Medications Budesonide-Formoterol Fumarate* (Symbicort*) 160-4.5 Hfa.aer.ad, INHALATION BID, #1 EACH 05/19/19 Guaifenesin (Guaifenesin) 600 Mg Tablet.sa, 600 MG PO BID, TAB 05/19/19 Tiotropium [place]* (Spiriva*) 18 Mcg Cap.w.dev, 1 CAP INHALATION DAILY, #30 CAP 05/19/19 Levothyroxine Sodium* (Synthroid*) 25 Mcg Tablet, 25 MCG PO BEFORE BREAKFAST, #30 TAB 05/19/19 Ramipril (Altace) 2.5 Mg Capsule, 2.5 MG PO DAILY, CAP 05/19/19 Montelukast Sodium* (Singulair*) 10 Mg Tablet, 10 MG PO QHS, #30 TAB 05/19/19 Metformin* (Glucophage*) 500 Mg Tab, 500 MG PO WITH DINNER, #60 TAB 05/19/19 Metformin* (Glucophage*) 500 Mg Tab, 500 MG PO WITH BREAKFAST, #30 TAB 05/19/19 Losartan Potassium* (Cozaar*) 25 Mg Tablet, 25 MG PO DAILY, #30 TAB 05/19/19 Gabapentin* (Neurontin*) 600 Mg Tablet, 600 MG PO BID, #60 TAB 05/19/19 Discontinued Scripts Prednisone* (Prednisone*) 5 Mg Tab, 5 MG PO as directed, #21 TAB Take 4 tabs x 3 days, then 2 tabs x 3 days, then 1 tab x 3 days, then stop. Prov:KEENA PIERSON 11/16/18 Follow-up Plan 1. Take all medications as prescribed. 2. I sent a new prescription for prednisone 40mg daily to the [facility]. You should take this for another 7 days. 3. See your primary care doctor in 1 week. 4. For worsening shortness of breath, return to the emergency room. Primary Care Provider Not On Staff Doctor Time spent on discharge: > 30 minutes Pending Labs Laboratory Tests Test 05/24/19 20:27 05/25/19 01:18 05/25/19 04:35 05/25/19 07:59 Bedside 101 101 86 Glucose mg/dL (70-220) mg/dL (70-220) mg/dL (70-220) White Blood 4.4 Count 10^3/ul (4.8-1 0.8) Red Blood 4.70 Count 10^6/ul (4.20- 5.40) Hemoglobin 11.7 g/dl (12.0-16. 0) Hematocrit 38.7 % (37.0-47.0) Mean 82.3 Corpuscular fl (82.0-101.0 Volume ) Mean 24.9 Corpuscular pg (29.0-33.0) Hemoglobin Mean 30.2 Corpuscular g/dl (32.0-37. Hemoglobin Conc 0) ent Red Cell 14.9 Distribution % (11.5-14.5) Width Platelet Count 80 10^3/UL (140-4 15) Mean Platelet 12.9 Volume fl (7.4-10.4) Immature 0.700 Granulocytes % % (0.001-0.429 ) Neutrophils % 55.9 % (39.0-77.0) Lymphocytes % 31.2 % (15.0-51.0) Monocytes % 10.6 % (0.0-11.0) Eosinophils % 1.4 % (0.0-7.0) Basophils % 0.2 % (0.0-2.0) Nucleated Red 0.0 Blood Cells % /100WBC (0.0-0 .0) Immature 0.030 Granulocytes # 10^3/ul (0.0-0 .031) Neutrophils # 2.4 10^3/ul (1.6-7 .5) Lymphocytes # 1.4 10^3/ul (0.8-2 .9) Monocytes # 0.5 10^3/ul (0.3-0 .9) Eosinophils # 0.1 10^3/ul (0.0-0 .5) Basophils # 0.0 10^3/ul (0.0-0 .1) Nucleated Red 0.0 Blood Cells # 10^3/ul (0.0-0 .0) Sodium Level 137 mmol/L (135-14 4) Potassium 4.3 Level mmol/L (3.5-5. 1) Chloride Level 97 mmol/L (97-110 ) Carbon Dioxide 37 Level mmol/L (21-31) Anion Gap 3 (5-13) Blood Urea 31 Nitrogen mg/dl (7-20) Creatinine 0.60 mg/dl (0.44-1. 00) Est Glomerular > 60 Filtrat mL/min (>60) Rate mL/min Glucose Level 100 mg/dl (70-220) Calcium Level 8.5 mg/dl (8.4-10. 2) Test 05/25/19 12:22 05/25/19 17:19 Bedside 107 233 Glucose mg/dL (70-220) mg/dL (70-220) ZION BRAUN MD May 25, 2019 19:05
== END 2019-05-25 20:40 | disposition home or self-care (01) | DRG 192 ==
LOC: INTOOBSV 17:12 → 6WM 17:12 → 2NE 05-21 05:56 → OBSVTOIN 05-21 07:02
PROVIDERS: ADMIT Internal Medicine; ATTEND Internal Medicine
DX: J44.1 Chronic obstructive pulmonary disease with (acute) exacerbation (principal); E11.42 Type 2 diabetes mellitus with diabetic polyneuropathy; I10 Essential (primary) hypertension; E03.9 Hypothyroidism, unspecified; Z77.22 Contact with and (suspected) exposure to environmental tobacco smoke (acute) (chronic); Z87.19 Personal history of other diseases of the digestive system
CPT/HCPCS: 80048; 80061; 82962; 83036; 83735; 84100; 84439; 84443; 84484; 85025; 94640; 94664; 97110; 97116; 97161; 97530; 99217; G0378; J1644; J1815; J1956; J2930; J7512